=== PATIENT | female | born 1930 | race Caucasian/White ===

== ENCOUNTER 2017-03-30 13:33 | Inpatient (IN) | payer OTHER, MEDICARE ==
[~2017-03-30] VITALS: Ht 152.4 cm; Wt 68.5 kg
[2017-03-30] VITALS (10 sets, daily range): BP systolic 87–108; BP diastolic 45–71
--- NOTE | 2017-03-30 13:40 | NUR ---
RECEIVED PT FROM TRANSPORT TEAM VENTILATED VIA AMBU BAG WITH RANDELL #6 PLACED PT ON VVENT WITH SETTINGS CHARTED SXN PT FOR C&S WITH MIN AMT WHITE SECS BREATH SOUNDS PRESENT BILAT PT QUIET NO RESP DISTRESS NOTED AT THIS TIME PT RESTING COMFORTABLY VENT PLUGGED INTO RED OUTLET AMBU BAG AT BEDSIDE
--- NOTE | 2017-03-30 14:05 | NUR ---
LAB AT BEDSIDE.
--- NOTE | 2017-03-30 14:06 | NUR ---
86F BIBA FROM [facility] C/O ABNORMAL LABS X TODAY WITH ELEVATED WBC, ELEVATED HR AND HGB 7. PT AWAKE, ON VENT UPON ARRIVAL. HX: CHRONIC RESPIRATORY FAILURE, TRACH/VENT, CVA, HTN, DM, HYPOTHYROID, CHRONIC COLONIC ILEUS, ANEMIA, CHRONIC RESPIRATORY FAILURE, EPILEPSY, ENCEPHALOPATHY, HYPERLIPIDEMIA, NONTRAUMATIC INTRACRANIAL HEMORRHAGE, HYPOKALEMIA. PT ON TRACH WITH MACHANICAL VENTILATOR ; O2 35, ASSIST CONTROL 12, TIDAL VOLUME 500. , NEUROLOGICAL BASE LINE. G TUBE TO ABDOMEN. LUNGS CLEAR BL;PATIENT STATES PAIN OF 0/10 AT THIS TIME; PATIENT POSITIONED FOR COMFORT; HOB ELEVATED; BEDRAILS UP X2; BED DOWN. ER MD MADE AWARE OF PT STATUS.
[2017-03-30 14:26] LABS: BASOPHILS # (AUTO) 0.1 K/uL (0.00-0.22); BASOPHILS % (AUTO) 0.5 % (0.0-2.0); EOSINOPHILS # (AUTO) 0.3 K/uL (0-0.4); EOSINOPHILS % (AUTO) 2.1 % (0.0-4.0); HEMATOCRIT 27.3 % (36-48); HEMOGLOBIN 8.7 g/dL (12.0-16.0); LYMPHOCYTES # (AUTO) 1.3 K/uL (2.5-16.5); LYMPHOCYTES % (AUTO) 8.3 % (20.5-51.1); MEAN CORPUSCULAR HEMOGLOBIN 26 pg (27-31); MEAN CORPUSCULAR HGB CONC 32 g/dL (33-37); MEAN CORPUSCULAR VOLUME 82 fL (80-94); MONOCYTES # (AUTO) 0.7 K/uL (0.8-1.0); MONOCYTES % (AUTO) 4.8 % (1.7-9.3); NEUTROPHILS % (AUTO) 84.3 % (42.2-75.2); PLATELET COUNT (AUTO) 405 K/uL (140-450); RED BLOOD CELL COUNT(AUTO) 3.32 MIL/uL (4.20-5.40); RED CELL DISTRIBUTION WIDTH 16.3 % (11.6-13.7); WHITE BLOOD COUNT (AUTO) 15.4 K/uL (4.8-10.8)
--- NOTE | 2017-03-30 14:40 | NUR ---
# 16 FR Colón catheter with 10 ml utilizing sterile technique. Immediate return of 500 ml CLOUDY urine noted. Bedside drainage bag placed below level of bladder. Urine sample collected and sent to lab. Pt tolerated procedure WELL.
[2017-03-30] MEDS ORDERED: MIRABULK GT (14:44)
[2017-03-30] MEDS ORDERED: SIME80CT70 GT (14:44)
[2017-03-30] MEDS ORDERED: SYN.075 GT (14:44)
[2017-03-30] MEDS ORDERED: LANO1OIN26 OP (14:44)
[2017-03-30] MEDS ORDERED: DOCU-299 GT (14:44)
[2017-03-30] MEDS ORDERED: CAPT25TA10 GT (14:44)
[2017-03-30] MEDS ORDERED: VITD1000 GT (14:44)
[2017-03-30] MEDS ORDERED: LACT1CAP72 GT (14:44)
[2017-03-30] MEDS ORDERED: BISA-213 RC (14:44)
[2017-03-30] MEDS ORDERED: PROSTAT SUGAR FREE GT ×2 (14:44→14:50)
[2017-03-30] MEDS ORDERED: KEP500L GT (14:44)
[2017-03-30] MEDS ORDERED: POTA10TE30 GT (14:44)
[2017-03-30] MEDS ORDERED: CRAN450T4 GT (14:44)
[2017-03-30 14:49] LABS: ALBUMIN 2.5 g/dL (3.4-5.0); ANION GAP 9.9 (8-16); ASPARTATE AMINOTRANSFERASE 16 U/L (15-37); CARBON DIOXIDE 29.5 mmol/L (21-32); CHLORIDE 103 mmol/L (98-107); CREATININE 1.1 mg/dL (0.6-1.3); GLUCOSE 165 mg/dL (74-106); POTASSIUM 4.4 mmol/L (3.5-5.1); SODIUM SERUM 138 mmol/L (136-145); TOTAL BILIRUBIN 0.3 mg/dL (0.0-1.0); UREA NITROGEN, BLOOD 54 mg/dL (7-18)
[2017-03-30 14:50] LABS: PROTHROMBIN TIME 10.3 secs (10.8-13.4)
[2017-03-30] MEDS ORDERED: GLIP5TAB4 GT (14:50)
[2017-03-30] MEDS ORDERED: MULT-1328 GT (14:50)
[2017-03-30] MEDS ORDERED: ACETAMINOPHEN 650 MG SUPP RC ONE (15:05)
--- NOTE | 2017-03-30 15:23 | NUR ---
RT SUCTION TRACH.
[2017-03-30 15:29] LABS: APPEARANCE,URINE CLOUDY (CLEAR); COLOR,URINE YELLOW (YELLOW)
[2017-03-30 15:30] LABS: BILIRUBIN,URINE NEGATIVE (NEGATIVE); BLOOD, URINE 2+ (NEGATIVE); LEUKOCYTE ESTERASE ,URINE 3+ (NEGATIVE); NITRITE, URINE NEGATIVE (NEGATIVE); UGLUCOSE NEGATIVE (NEGATIVE)
[2017-03-30 15:32] LABS: RBC,URINE 11-20 (MOD) /HPF (0-5); WBC,URINE TOO MANY TO COUNT /HPF (0-5)
--- NOTE | 2017-03-30 15:43 | NUR ---
T100.9,P101, BP 94.45. NOTIFIED DR DIAL. Patient appears to be resting comfortably in bed. NEUROLOGICAL ACT BASE LINE.
[2017-03-30] MEDS ORDERED: NACL 0.9% 1,000 ML IV ONE ×2 (15:45→16:15)
--- NOTE | 2017-03-30 16:04 | NUR ---
Patient being reevaluated by Dr Rain at bedside. Addendum: 03/30/17 at 1609 by [facility] family at bedside.
[2017-03-30] MEDS ORDERED: PIPERACILLIN/TAZOBACTAM 4.5 GM in DEXTROSE 5% 100 ML IV ONE (16:10)
[2017-03-30] MEDS ORDERED: PIPERACILLIN/TAZOBACTAM 2.25 GM VIAL IV ONE (16:20)
--- NOTE | 2017-03-30 16:25 | NUR ---
x ray at bedside.
[2017-03-30] MEDS ORDERED: LORazepam 2 MG/ML VIAL IVP PRN (16:45)
[2017-03-30] MEDS ORDERED: POTASSIUM CHLORIDE 10 MEQ TABER PO PRN (16:45)
[2017-03-30] MEDS ORDERED: SODIUM PHOSPHATE 118 ML ENEM RC PRN (16:45)
[2017-03-30] MEDS ORDERED: ACETAMINOPHEN 650 MG SUPP RC PRN (16:45)
[2017-03-30] MEDS ORDERED: DEXTROSE 50% 50 ML SYR IVP PRN (16:45)
[2017-03-30] MEDS ORDERED: MORPHINE SULFATE 2 MG/ML SYR IVP PRN (16:45)
[2017-03-30] MEDS ORDERED: diphenhydrAMINE 50 MG/ML VIAL IVP PRN (16:45)
[2017-03-30] MEDS ORDERED: guaiFENesin DM 200/20 MG-10 ML 10 ML UDC GT PRN (16:45)
[2017-03-30] MEDS ORDERED: ONDANSETRON 4 MG/2 ML VIAL IVP PRN (16:45)
[2017-03-30] MEDS ORDERED: IPRATROPIUM 0.02% 0.5 MG/2.5 ML NEBU INH PRN (16:45)
[2017-03-30] MEDS ORDERED: ALUMINUM HYD/MAG/SIMETHICONE 30 ML UDC PO PRN (16:45)
[2017-03-30] MEDS ORDERED: cloNIDine 0.1 MG TAB PO PRN (16:45)
[2017-03-30] MEDS ORDERED: ALBUTEROL 0.083% 2.5 MG/3 ML NEBU INH PRN (16:45)
[2017-03-30] MEDS ORDERED: MAGNESIUM OXIDE 400 MG TAB PO PRN (16:45)
[2017-03-30] MEDS ORDERED: HYDROcodone/APAP 5/325 MG 1 TAB TAB GT PRN ×2 (16:45)
[2017-03-30] MEDS ORDERED: BISACODYL 10 MG SUPP RC PRN (16:45)
[2017-03-30] MEDS ORDERED: MAG SULF 2000 MG/WATER PREMIX 50 ML IV PRN (16:45)
[2017-03-30] MEDS ORDERED: POTASSIUM CHLORIDE 40 MEQ, LIDOCAINE 1% 25 MG in NACL 0.9% 250 ML IV PRN (16:45)
[2017-03-30] MEDS ORDERED: DOCUSATE 100 MG/10 ML UDC PO PRN (16:45)
[2017-03-30] MEDS ORDERED: ACETAMINOPHEN 325 MG TAB PO PRN (16:45)
[2017-03-30] MEDS ORDERED: PROSTAT SUGAR FREE GT SCH (17:00)
--- NOTE | 2017-03-30 17:00 | NUR ---
Patient will be admitted to care of DR HDZ . Admited to ICU. Will go to room7. Belongings list completed. Report to CHARGE LOZOYA.
[2017-03-30] MEDS ORDERED: NACL 0.9% 500 ML IV ONE (17:15)
--- NOTE | 2017-03-30 17:15 | NUR ---
TRANSPORTED PT FROM ER TO ICU 7 VIA AMBU BAG WHEN IN ICU7 PT PLACED ON VENT WITH SETTINGS CHARTED BREATH SOUNDS PRESENT TRACH IN PLACE SXN PT WITH MIN AMT THICK YELLOW SECS VENT PLUGGED INTO RED OUTLET AMBU BAG AT BEDSIDE WILL CONTINUE PT ON VENT
[2017-03-30] MEDS ORDERED: VANCOMYCIN PER PHARMACY MC PRN (17:25)
--- NOTE | 2017-03-30 17:40 | NUR ---
RECEIVE PT FROM ER IN [facility] [place]. PT SKIN DRY WARM TO TOUCH , TRACH TO VENT AC 12 35% FIO2VT 500 PPEP 5 O2 SAT 96% GT TUBE CLAMP. THE SITE IS CLEAR FROM REDNESS.ABDOMEN ROUND AND FIRM BOWEL SOUND HYPO ACTIVE. IV FLUID SITE HAS #20 ON RT FOREARM , INFUSING NS 0.9% AT 100 ML/HR. HILTON CATH TO GRAVITY DRAINAGE LIGHT HERNÁN URINE. SKIN INTACT.
[2017-03-30] MEDS: VANCOMYCIN 500 MG in DEXTROSE 5% 100 ML IV SCH (17:59)
[2017-03-30] MEDS: NACL 0.9% 1,000 ML IV SCH (18:00)
--- NOTE | 2017-03-30 19:25 | NUR ---
PT IS COFORTABLE AT THIS TIME, REPORT GIVE TO LENNOX CAGE.
--- NOTE | 2017-03-30 19:38 | NUR ---
RECEIVED REPORT FROM HEATHER CAGE. PATIENT IS NONVERBAL, DOES NOT TRACK EYES, OR FOLLOW SIMPLE COMMANDS. PATIENT IS ON ETT TO VENT WITH SETTINGS OF TV 500, AC 12, FIO2 35% AND PEEP 5. BREATH SOUNDS ARE COARSE AND DIMINISHED. THERE IS A G-TUBE IN PLACE CLAMPED. BOWEL SOUNDS ARE HYPOACTIVE. HILTON CATHETER IN PLACE DRAINING TO GRAVITY WITH MODERATE AMOUNT OF YELLOW URINE WITH CLOUDY SEDIMENT. #20 IN THE RFA RECEIVING NS AT 100 ML/HR. HOB AT 30 DEGREES WITH BED IN LOW POSITION. CONTINUE TO MONITOR PATIENT. Addendum: 03/31/17 at 0017 by Fab Singh RN TRACH TO VENT, NOT ETT
--- NOTE | 2017-03-30 19:50 | NUR ---
PATIENT'S SON AND DAUGHTER VISITING AT BEDSIDE. NO SIGNS OF RESPIRATORY DISTRESS NOTED. HOB AT 30 DEGREES WITH BED IN LOW POSITION. CONTINUE TO MONITOR PATIENT.
[2017-03-30] MEDS ORDERED: PIPERACILLIN/TAZOBACTAM 3.375 GM in DEXTROSE 5% 50 ML IV SCH (21:00)
[2017-03-30] MEDS: levETIRAcetam 100 MG/ML ORASYR GT SCH (21:00)
--- NOTE | 2017-03-30 21:15 | NUR ---
BLOOD SUGAR IS 164. ADMINISTERED HUMALOG 2 UNITS SUB Q IN LEFT DELTOID. NO ADR NOTED. PATIENT REPOSITIONED FOR COMFORT. HOB AT 30 DEGREES WITH BED IN LOW POSITION. WILL CONTINUE TO MONITOR PATIENT.
[2017-03-30] MEDS: BLOOD GLUCOSE MONITORING 1 DEV DEV FS SCH (21:17)
[2017-03-30] MEDS: INSULIN LISPRO SLIDING SCALE 100 UNITS/ML VIAL SUBQ PRN (21:19)
--- NOTE | 2017-03-30 21:38 | NUR ---
RECEIVED ON A [employer]APE R860 VENTILATOR PLUGGED INTO RED OUTLET TOLERATING WELL WITHOUT ADVERSE REACTIONS NOTED TO A RANDELL DCT #6 AIRWAY SECURED WITH A ERIKA TRACH TIE CUFF PRESSURE CHECKED WITH A ANNIE CUFFLATOR AMBU U BAG NOTED AT HOB LOC QUIET WITH OCCASIONAL IRRITATION/MOVEMENT BREATH SOUNDS CLEAR BILATERAL WITH GOOD AERATION AND CHEST RISE AIRWAY PATENT
[2017-03-30] MEDS ORDERED: levETIRAcetam 100 MG/ML ORASYR ONE (21:55)
[2017-03-30] MEDS: PIPER/TAZO 3.375GM/D5W PREMIX 50 ML IV SCH (23:35)
--- NOTE | 2017-03-30 23:40 | NUR ---
RESTING COMFORTABLY NO EVIDENCE OF PULMONARY DISTRESS NOTED BREATH SOUNDS DIFFUSED RHONCHI BILATERAL WITH GOOD CHEST RISE DEEP TRACHEAL SUCTION FOR SMALL THIN PALE YELLOW SECRETIONS AIRWAY PATENT
[2017-03-31] VITALS (24 sets, daily range): BP systolic 84–122; BP diastolic 31–73
--- NOTE | 2017-03-31 01:35 | NUR ---
PATIENT REPOSITIONED FOR COMFORT. VAP ORAL CARE RENDERED. NO SIGNS OF RESPIRATORY DISTRESS NOTED. HOB AT 30 DEGREES WITH BED IN LOW POSITION. CONTINUE TO MONITOR PATIENT.
--- NOTE | 2017-03-31 01:47 | NUR ---
RESTING WELL TOLERATING VENTILATORY SUPPORT WELL WITHOUT INCIDENT GOOD CHEST RISE
[2017-03-31] MEDS: NACL 0.9% 1,000 ML IV SCH ×4 (02:35→22:35)
--- NOTE | 2017-03-31 03:20 | NUR ---
COMPLETE BED BATH GIVEN. CHANGED LINENS AND GOWN. REPOSITIONED PATIENT FOR COMFORT. VAP ORAL CARE RENDERED. NO SIGNS OF RESPIRATORY DISTRESS NOTED. HOB AT 30 DEGREES WITH BED IN LOW POSITION. WILL CONTINUE TO MONITOR PATIENT.
--- NOTE | 2017-03-31 03:55 | NUR ---
RESTING COMFORTABLY NO EVIDENCE OF RESPIRATORY DISTRESS NOTED GOOD CHEST RISE
[2017-03-31 04:49] LABS: BASOPHILS # (AUTO) 0.1 K/uL (0.00-0.22); BASOPHILS % (AUTO) 0.5 % (0.0-2.0); EOSINOPHILS # (AUTO) 0.3 K/uL (0-0.4); EOSINOPHILS % (AUTO) 2.3 % (0.0-4.0); HEMATOCRIT 24.4 % (36-48); HEMOGLOBIN 7.5 g/dL (12.0-16.0); LYMPHOCYTES # (AUTO) 1.3 K/uL (2.5-16.5); LYMPHOCYTES % (AUTO) 8.6 % (20.5-51.1); MEAN CORPUSCULAR HEMOGLOBIN 25 pg (27-31); MEAN CORPUSCULAR HGB CONC 31 g/dL (33-37); MEAN CORPUSCULAR VOLUME 82 fL (80-94); MONOCYTES # (AUTO) 0.7 K/uL (0.8-1.0); MONOCYTES % (AUTO) 4.4 % (1.7-9.3); NEUTROPHILS # (AUTO) 12.5 K/uL (1.8-7.7); PLATELET COUNT (AUTO) 391 K/uL (140-450); RED BLOOD CELL COUNT(AUTO) 2.99 MIL/uL (4.20-5.40); RED CELL DISTRIBUTION WIDTH 15.9 % (11.6-13.7); WHITE BLOOD COUNT (AUTO) 14.9 K/uL (4.8-10.8)
[2017-03-31 04:53] LABS: ANION GAP 12.6 (8-16); CARBON DIOXIDE 23.4 mmol/L (21-32); CHLORIDE 112 mmol/L (98-107); CREATININE 0.9 mg/dL (0.6-1.3); GLUCOSE 174 mg/dL (74-106); SODIUM SERUM 144 mmol/L (136-145); UREA NITROGEN, BLOOD 32 mg/dL (7-18)
--- NOTE | 2017-03-31 05:28 | NUR ---
AWAKE NO SOB NOTED GOOD CHEST RISE AIRWAY PATENT
[2017-03-31 05:51] LABS: NEUTROPHILS % (AUTO) 84.2 % (42.2-75.2)
--- NOTE | 2017-03-31 06:15 | NUR ---
PATIENT RESTING IN BED WITH NO SIGNS OF ACUTE RESPIRATORY DISTRESS NOTED. HOB AT 30 DEGREES WITH BED IN LOW POSITION. CONTINUE TO MONITOR PATIENT.
[2017-03-31] MEDS: BLOOD GLUCOSE MONITORING 1 DEV DEV FS SCH ×4 (06:40→20:56)
[2017-03-31] MEDS: INSULIN LISPRO SLIDING SCALE 100 UNITS/ML VIAL SUBQ PRN (06:41)
--- NOTE | 2017-03-31 06:57 | NUR ---
PATIENT HAS BEEN SCREENED AND CATEGORIZED HIGH NUTRITION RISK. PATIENT WILL BE SEEN WITHIN 1-2 DAYS OF ADMISSION. 03/31/17-04/01/17 MESFIN MILTON MS, RDN
--- NOTE | 2017-03-31 07:22 | NUR ---
PATIENT IN STABLE CONDITION. VSS. ALL PATIENT'S NEEDS ATTENDED TO DURING SHIFT. ENDORSED CONTINUITY OF CARE TO DENISE CAGE.
--- NOTE | 2017-03-31 07:29 | NUR ---
RECEIVED PT ON CARESCAPE ON A/C 12 VT500 PEEP 5 FIO2 35 ALARMS ARE ON AND FUNCTIONAL PTS TRACH SHILEY DCT SIZE 6 IS SECURE CUFF PRESSURE IS 26 CM H20 PT IN HF AWAKE BS CLEAR BMV HOB VENT PLUGGED INTO RED OUTLET NO APPARENT DISTRESS NOTED
--- NOTE | 2017-03-31 08:07 | NUR ---
RECEIVED REPORT FROM FAUZIA LION. NO SIGNS OF ACUTE DISTRESS AT THIS TIME, FLACC 0. PT OPENS EYES BUT DOES NOT FOLLOW COMMANDS. PT IS TRACH TO VENT. FIO2: 35%, AC: 12, TV: 500, PEEP: 5. IV TO RIGHT FOREARM #20, PATENT AND INTACT. SKIN IS INTACT. G TUBE IN PLACE TO TUBE FEEDING. HILTON CATHETER IN PLACE DRAINING TO GRAVITY DRAINAGE BAG. PT IS CURRENTLY SINUS RHYTHM ON THE MONITOR. SAFETY PRECAUTIONS IN PLACE WITH BED IN LOWEST POSITION AND SIDE RAILS UP. CALL LIGHT WITHIN REACH. WILL CONTINUE TO MONITOR. Addendum: 03/31/17 at 0809 by Christina Eckert RN CHARTED WRONG TIME. CORRECT TIME: 722
[2017-03-31] MEDS: glipiZIDE 5 MG TAB GT SCH (08:34)
[2017-03-31] MEDS: MULTIVITAMIN/MINERALS 1 TAB GT SCH (08:34)
[2017-03-31] MEDS: LEVOTHYROXINE 0.075 MG TAB GT SCH (08:34)
[2017-03-31] MEDS: LACTOBACILLUS RHAMNOSUS GG 1 EACH CAP GT SCH (08:34)
[2017-03-31] MEDS: PIPER/TAZO 3.375GM/D5W PREMIX 50 ML IV SCH ×3 (08:36→23:57)
[2017-03-31] MEDS: levETIRAcetam 100 MG/ML ORASYR GT SCH ×2 (08:47→21:32)
[2017-03-31] MEDS ORDERED: LACTOBACILLUS ACIDOPHILUS GT SCH (09:00)
[2017-03-31] MEDS ORDERED: NON-FORMULARY ITEM (Multivitamin with Minerals (Multivitamins with Minerals) 1 TAB) GT SCH (09:00)
--- NOTE | 2017-03-31 09:00 | NUR ---
VENT CHECK BS RHONCI I\L LAVAGE AND SX MOD YELLOW SECRETIONS
--- NOTE | 2017-03-31 09:01 | NUR ---
CHECKED TUBE FEEDING RESIDUAL: NONE NOTED. ADMINISTERED MEDICATION ORDERED. PT TOLERATED WELL.
--- NOTE | 2017-03-31 09:21 | NUR ---
DR. HDZ IN TO SEE PT. WILL FOLLOW UP ON ORDERS.
--- NOTE | 2017-03-31 10:20 | NUR ---
DR. NEUMANN IN TO SEE PT. WILL FOLLOW UP ON ORDERS.
--- NOTE | 2017-03-31 10:27 | NUR ---
PER DR. NEUMANN, PT OK TO BE TRANSFERRED TO TELEMETRY. NOTIFIED DR. ROSA HDZ. PER DR. HDZ, PT CAN BE TRANSFERRED IF SBP ABOVE 80.
[2017-03-31] MEDS ORDERED: NACL 0.9% 500 ML IV SCH (10:30)
--- NOTE | 2017-03-31 11:16 | NUR ---
VENT CHECK BS CLEAR AIRWAY IS PATENT
--- NOTE | 2017-03-31 13:00 | NUR ---
G TUBE FOUND PULLED OUT WITH BALLOON INTACT, NO BLEEDING NOTED. TUBE FEEDING STOPPED AT THIS TIME. PAGED DR. HDZ, AWAITING CALLBACK.
--- NOTE | 2017-03-31 13:05 | NUR ---
VENT CHECK BS RHONCI I\L LAVAGE AND SX LG WHITE
--- NOTE | 2017-03-31 13:07 | NUR ---
RECEIVED CALLBACK FROM DR. HDZ, NEW ORDERS RECEIVED. PER DR. HDZ, HOLD TRANSFER TO TELEMETRY AT THIS TIME.
--- NOTE | 2017-03-31 13:15 | NUR ---
SPOKE WITH DR. SINGH REGARDING G TUBE. PER DR. SINGH, KEEP G TUBE OUT AND HOLD TUBE FEEDING AT THIS TIME.
--- NOTE | 2017-03-31 13:16 | NUR ---
PT'S DAUGHTER PRESENT AT BEDSIDE.
--- NOTE | 2017-03-31 15:00 | NUR ---
VENT CHECK, SXN PT SMALL AMT OF CLEAR SECRETIONS B\S ARE RHONCHI. TRACH CARE DONE: CHANGED TRACH TIE AND GAUZE. PT IS RESTING WITH NO SIGNS OF DISTRESS NOTED AT THIS TIME
--- NOTE | 2017-03-31 15:12 | NUR ---
CHECKED ON PT. NO SIGNS OF ACUTE DISTRESS AT THIS TIME. FLACC 0. WILL CONTINUE TO MONITOR.
--- NOTE | 2017-03-31 16:41 | NUR ---
VENT CHECK BS CLEAR AIRWAY IS PATENT
--- NOTE | 2017-03-31 16:53 | NUR ---
VENT CHECK, NO SXN REQUIRED AT THIS TIME, B\S ARE RHONCHI AND AIRWAY IS PATENT FAUZIA Poe AT BEDSIDE
[2017-03-31] MEDS: VANCOMYCIN 500 MG in DEXTROSE 5% 100 ML IV SCH (17:01)
--- NOTE | 2017-03-31 17:01 | NUR ---
PT TOLERATED MEDS WELL.
--- NOTE | 2017-03-31 17:27 | NUR ---
PT'S GRANDDAUGHTER AT BEDSIDE.
--- NOTE | 2017-03-31 18:08 | NUR ---
CHECKED ON PT. NO SIGNS OF ACUTE DISTRESS AT THIS TIME, FLACC 0. CALL LIGHT WITHIN REACH. WILL CONTINUE TO MONITOR.
--- NOTE | 2017-03-31 18:51 | NUR ---
DR. SINGH IN TO SEE PT. WILL FOLLOW UP ON ORDERS.
[2017-03-31] MEDS ORDERED: MAGNESIUM CITRATE 300 ML BTL PO SCH (19:00)
--- NOTE | 2017-03-31 19:04 | NUR ---
RCV'D PT ON MECHANICAL VENTILATION TRACHED WITH SHILEY DCT SIZE 6. VENT SETTINGS ARE AC 12,500,35%,+5. VENT IS CONNECTED TO RED OUTLET. ALARMS ARE AUDIBLE. TRACH IS IN PLACE AND SECURE. STOMA IS DRAINING. SXN'D SML AMT OF CLEAR THIN SECRETIONS. AMBU BAG AT BEDSIDE. NO SOB OR DISTRESS NOTED. PT IS AWAKE AND QUITE. WILL CONTINUE TO MONITOR.
--- NOTE | 2017-03-31 19:13 | NUR ---
ENDORSED CARE TO FAUZIA SALEH. PT IN STABLE CONDITION.
--- NOTE | 2017-03-31 19:30 | NUR ---
RECEIVED PT FROM AM SHIFT. PT AWAKE NON VERBAL. UNABLE TO FOLLOW COMMANDS. PT ON TRACH TO VENT WITH VENT SETTING AC 12 FIO2 35,TV 500 PEEP 5 TOLERATED WELL,NO S/S OF RESP DISTRESS,NO SOB. HOB UP 30-45 DEGREE ALL THE TIMES. RHONCHI TO BILATERAL LUNGS. SR ON MONITOR. IV TO RIGHT FOREARM NO 20 GAUGE INTACT WELL, NO S/S INFILTRATION NOTED. CONT ON IV NS AT 100 CC/HR RUNNING ORDERED. GT IS OUT FROM AM SHIFT. POST GT STOMA COVERED WITH DRESSING WITH SMALL YELLOW TO WHITISH COLOR OF DRAINAGE.KEPT AREA CLEAN AND DRY.GT FEEDING STILL ON HOLD.DR SINGH COME TO SEE PT WAITING FOR THE NEW ORDER. ABD SOFT NON DISTENDED.POSITIVE BOWEL SOUND TO ALL QUADRANTS. F/C IN PLACE WITH YELLOW CLEAR URINE.
--- NOTE | 2017-03-31 19:40 | NUR ---
ORDERED CITROMA ,ENEMA, CHEST X-RAY, ABD ULTRA SOUNDS AND NGT TO INSERTED. Addendum: 03/31/17 at 2305 by Soheila Manriquez RN CLARIFIED THE X-RAY IS FOR ABD
--- NOTE | 2017-03-31 20:15 | NUR ---
X-RAY OF ABD AND ABD ULTRASOUND DONE. RESULT STILL PENDING.
--- NOTE | 2017-03-31 20:40 | NUR ---
NGT INSERTED,PLACEMENT CONFIRM BY 2 NURSE BY AUSCULTATION AND 2 CC RESIDUAL NOTED.
[2017-03-31] MEDS ORDERED: MAGNESIUM CITRATE 300 ML BTL ONE (21:05)
--- NOTE | 2017-03-31 21:22 | NUR ---
PAGED DR. Kirill SINGH TO RELAY THE CRITICAL KUB RESULT.
--- NOTE | 2017-03-31 21:45 | NUR ---
MEDICATION WAS GIVEN ORDERED TOLERATED WELL.
--- NOTE | 2017-03-31 22:01 | NUR ---
NO RETURNED CALL FROM DR. Arnaldo SINGH SO I CALLED HIM AGAIN; ANSWERED BACK IMMEDIATELY AND REPORTED TO HIM THE CRITICAL KUB RESULT; ORDERED TO CONTINUE GIVING THE ENEMA AND THE MAGNESIUM CITRATE THRU NGT; CARRIED OUT.
--- NOTE | 2017-03-31 22:40 | NUR ---
IV NS AT 100 CC/HR STILL RUNNING ORDER ABOUT 600 CC ON THE BAG.
[2017-04-01] VITALS (24 sets, daily range): BP systolic 84–138; BP diastolic 42–83
--- NOTE | 2017-04-01 00:30 | NUR ---
IV ABT GIVEN ORDER. PT IS SLEEPING. BM X1 MEDIUM LOOSE STOOL POST ENEMA.
[2017-04-01] MEDS: NACL 0.9% 1,000 ML IV SCH (04:18)
[2017-04-01 05:23] LABS: BASOPHILS # (AUTO) 0.1 K/uL (0.00-0.22); BASOPHILS % (AUTO) 0.7 % (0.0-2.0); EOSINOPHILS # (AUTO) 0.4 K/uL (0-0.4); EOSINOPHILS % (AUTO) 3.7 % (0.0-4.0); LYMPHOCYTES # (AUTO) 1.5 K/uL (2.5-16.5); LYMPHOCYTES % (AUTO) 14.3 % (20.5-51.1); MEAN CORPUSCULAR HEMOGLOBIN 26 pg (27-31); MEAN CORPUSCULAR HGB CONC 32 g/dL (33-37); MEAN CORPUSCULAR VOLUME 81 fL (80-94); MONOCYTES # (AUTO) 0.5 K/uL (0.8-1.0); MONOCYTES % (AUTO) 4.9 % (1.7-9.3); NEUTROPHILS # (AUTO) 8.3 K/uL (1.8-7.7); NEUTROPHILS % (AUTO) 76.4 % (42.2-75.2); PLATELET COUNT (AUTO) 393 K/uL (140-450); RED BLOOD CELL COUNT(AUTO) 2.71 MIL/uL (4.20-5.40); RED CELL DISTRIBUTION WIDTH 16.1 % (11.6-13.7); WHITE BLOOD COUNT (AUTO) 10.8 K/uL (4.8-10.8)
[2017-04-01 05:41] LABS: ALBUMIN 1.9 g/dL (3.4-5.0); ANION GAP 12.8 (8-16); ASPARTATE AMINOTRANSFERASE 18 U/L (15-37); CARBON DIOXIDE 24.5 mmol/L (21-32); CHLORIDE 118 mmol/L (98-107); CREATININE 0.8 mg/dL (0.6-1.3); GLUCOSE 177 mg/dL (74-106); POTASSIUM 3.3 mmol/L (3.5-5.1); SODIUM SERUM 152 mmol/L (136-145); TOTAL BILIRUBIN 0.2 mg/dL (0.0-1.0); UREA NITROGEN, BLOOD 17 mg/dL (7-18)
--- NOTE | 2017-04-01 06:33 | NUR ---
RECEIVED PT ON A/C 12 VT 500 PEEP5 FIO2 35 ALARMS ARE ON AND FUNCTIONAL BMV HOB PTS TRACH SHILEY DCT SIZE 6 IS SECURE BS RHONCI I\L LAVAGE AND SX LG CLEAR SECRETIONS PT IN HF ASLEEP CUFF PRESSURE IS 29 CM H20 NO APPARENT DISTRESS NOTED VENT PLUGGED INTO RED OUTLET
[2017-04-01] MEDS: BLOOD GLUCOSE MONITORING 1 DEV DEV FS SCH ×4 (06:45→20:08)
[2017-04-01] MEDS: INSULIN LISPRO SLIDING SCALE 100 UNITS/ML VIAL SUBQ PRN ×3 (06:48→20:10)
--- NOTE | 2017-04-01 07:28 | NUR ---
REPORT GIVEN TO AM SHIFT,AM SHIFT MADE AWARE NEW ORDER FROM FOR BLOOD TRANSFUSION 2 BAG RED PACK. NO RESP DISTRESS NOTED.
--- NOTE | 2017-04-01 07:30 | NUR ---
RECEIVED REPORT FROM FAUZIA SALEH. GCS 9 (4,1,4). BILATERAL PERRLA OBSERVED. FLACC 0. PT TRACH TO VENT, TOLERATING WELL. SR ON MONITOR. SKIN NONINTACT, WARM , DRY. POST GT STOMA OBSERVED, COVERED WITH DRAINAGE BAG. SCANT YELLOW, WHITE DRAINAGE OBSERVED. IV TO RIGHT FOREARM 20 GAUGE OBSERVED. INTACT AND PATENT. IV TO LEFT HAND [address] INTACT AND PATENT. ABD SOFT, NONTENDER, NON DISTENDED. POSITIVE BOWEL SOUND TO ALL QUADRANTS. F/C IN PLACE WITH YELLOW CLEAR URINE DRAINING BY GRAVITY. NO S/SX OF ACUTE DISTRESS NOTED. BED AT LOWEST SETTING. CALL LIGHT WITHIN REACH. WILL CONTINUE TO MONITOR FOR CHANGES.
--- NOTE | 2017-04-01 07:56 | NUR ---
TELEPHONE CONSENT OBTAINED FROM SIMCHANEY AND WITNESSED BY MYSELF AND FAUZIA ROMERO
[2017-04-01] MEDS: PIPER/TAZO 3.375GM/D5W PREMIX 50 ML IV SCH ×3 (08:13→23:29)
[2017-04-01] MEDS: LACTOBACILLUS RHAMNOSUS GG 1 EACH CAP GT SCH (08:14)
[2017-04-01] MEDS: glipiZIDE 5 MG TAB GT SCH (08:14)
[2017-04-01] MEDS: LEVOTHYROXINE 0.075 MG TAB GT SCH (08:14)
[2017-04-01] MEDS: MULTIVITAMIN/MINERALS 1 TAB GT SCH (08:14)
[2017-04-01] MEDS: levETIRAcetam 100 MG/ML ORASYR GT SCH ×2 (08:15→20:08)
--- NOTE | 2017-04-01 08:20 | NUR ---
O RESIDUAL FROM NG TUBE. MEDICATION GIVEN ORDERED. TOLERATED WELL.
--- NOTE | 2017-04-01 08:29 | NUR ---
WOUND CULTURE COLLECTED FROM G TUBE STOMA.
--- NOTE | 2017-04-01 09:09 | NUR ---
VENT CHECK BS RHONCI I\L LAVAGE AND SX LG CLEAR SECRETIONS
--- NOTE | 2017-04-01 09:27 | NUR ---
0914: BLOOD VERIFIED WITH LAB. CONSENT PROVIDED TO LAB. 0927: FIRST UNIT OF BLOOD TRANSFUSION STARTED. IV INTACT AND PATENT. FLACC 0. NO S/SX OF ACUTE DISTRESS OBSERVED.
--- NOTE | 2017-04-01 09:30 | NUR ---
DR. HDZ AT BEDSIDE TO SEE PT. WILL F/U WITH NEW ORDERS.
[2017-04-01] MEDS ORDERED: POTASSIUM CHLORIDE 20% 40 MEQ/15 ML UDC NG SCH (09:55)
--- NOTE | 2017-04-01 09:59 | NUR ---
PT HAD ONE EPISODE OF MODERATE LOOSE GREEN STOOL. STOOL SAMPLE COLLECTED. RACHAEL CARE GIVEN.
[2017-04-01] MEDS: POTASSIUM CHL 20 MEQ/D5-1/2NS 1,000 ML IV SCH ×2 (10:05→20:52)
--- NOTE | 2017-04-01 10:10 | NUR ---
0 RESIDUAL IN NG TUBE. MEDICATION GIVEN ORDERED. TOLERATED WELL. WILL CONTINUE TO MONITOR FOR CHANGES.
--- NOTE | 2017-04-01 10:29 | NUR ---
VENT CHECK BS RHONCI I\L LAVAGE AND SX MOD CLEAR SECRETIONS
--- NOTE | 2017-04-01 10:32 | NUR ---
DR HDZ PAGED REGARDING CRITICAL LAB RESULT. AWAITING CALL BACK.
[2017-04-01] MEDS ORDERED: CHLORHEXADINE GLUC 2% CLOTH TP SCH ×2 (10:35→11:11)
[2017-04-01] MEDS ORDERED: MUPIROCIN 2% OINT 22 GM TUBE TP SCH (11:12)
--- NOTE | 2017-04-01 11:29 | NUR ---
DR. NEUMANN AT BEDSIDE TO SEE PT. WILL F/U WITH NEW ORDERS.
--- NOTE | 2017-04-01 11:30 | NUR ---
CHLOROHEXIDINE BATH GIVEN. PT TOLERATED WELL.
--- NOTE | 2017-04-01 11:40 | NUR ---
AROUND 50 CC OUTPUT NOTED IN DRAINAGE BAG AROUND GT STOMA. APPEARS LIKE TUBE FEEDING IN APPEARANCE. PER COMPUTER NETWORK SPECIALIST CAN CONSIDER KEEPING RATE AT 40 ML/HR AND OBSERVE FOR MORE DRAINAGE. WILL CONTINUE TO MONITOR AND UPDATE MD FOR INCREASE IN DRAINAGE.
--- NOTE | 2017-04-01 12:30 | NUR ---
FIRST UNIT OF BLOOD COMPLETED. PT TOLERATED WELL. IV INTACT AND PATENT. VITALS SIGN WNL. NO S/SX OF ADVERSE S/E OBSERVED.
--- NOTE | 2017-04-01 12:48 | NUR ---
04/01/17 RD INITIAL ASSESSMENT COMPLETED PLEASE REFER TO NUTRITION ASSESSMENT UNDER CARE ACTIVITY FOR ESTIMATED NUTRITIONAL NEEDS. RD RECOMMENDATIONS: 1. CONTINUE DIABETISOURCE AT 40 ML/HR VIA NG TUBE WITH FREE WATER FLUSH AT 100 ML Q8H MEDICALLY APPROPRIATE AND TOLERATED. DECREASE/INCREASE TUBE FEEDING RATE TO GOAL RATE TOLERATED OR PER MD DISCRETION. -CURRENT RATE OF TUBE FEEDING IS MEETING ~57% OF ESTIMATED KCAL NEEDS AND ~58% OF ESTIMATED PROTEIN NEEDS (INADEQUATE). 2. CONSIDER INCREASING DIABETISOURCE AC TO GOAL RATE OF 65 ML/HR WITH 200 ML FREE WATER FLUSH Q8H TOLERATED. -TUBE FEEDING AT GOAL RATE OF 65 ML/HR PROVIDES 1560 ML TOTAL VOLUME, 1872 KCAL, 94 GM OF PROTEIN, AND 1876 ML OF FREE WATER (ADEQUATE TO MEET ~93% OF ESTIMATED KCAL NEEDS AND ~94% OF ESTIMATED PROTEIN NEEDS). 3. RD WILL F/U 2-3 DAYS; HIGH RISK. GREGORY LINARES RD
--- NOTE | 2017-04-01 13:16 | NUR ---
VENT CHECK BS RHONCI I\L LAVAGE AND SX MOD CLEAR SECRETIONS
--- NOTE | 2017-04-01 13:43 | NUR ---
1328: BLOOD VERIFIED WITH LAB. CONSENT PROVIDED TO LAB. 1343: SECOND UNIT OF BLOOD TRANSFUSION STARTED. IV INTACT AND PATENT. FLACC 0. NO S/SX OF ACUTE DISTRESS OBSERVED.
--- NOTE | 2017-04-01 14:26 | NUR ---
PT HAD ONE EPISODE OF MODERATE LOOSE GREEN STOOL. RACHAEL CARE GIVEN. SKIN INTACT, WARM. 50 CC OF YELLOWISH DRAINAGE WITH MUCUS LIKE SUBSTANCE DRAINED FROM DRAINAGE BAG ON GT STOMA. WILL CONTINUE TO MONITOR.
--- NOTE | 2017-04-01 15:14 | NUR ---
VENT CHECK BS CLEAR AIRWAY IS PATENT
--- NOTE | 2017-04-01 16:31 | NUR ---
VENT CHECK BS RHONCI I\L LAVAGE AND SX MOD CLEAR SECRETIONS
--- NOTE | 2017-04-01 16:34 | NUR ---
DR. SINGH NOTIFIED OF DRAINAGE IN COLLECTION BAG OF GT STOMA. PER DR SINGH, HOLD TUBE FEEDING UNTIL FURTHER INSTRUCTION AND CONNECT NG TUBE TO LOW INTERMITTENT SUCTION. ORDER RECEIVED FOR CT ABD/PELVIS TODAY AND GASTROGRAFIN BARIUM ENEMA IN AM.
--- NOTE | 2017-04-01 16:43 | NUR ---
SECOND UNIT OF BLOOD COMPLETED. PT TOLERATED WELL. IV INTACT AND PATENT. VITALS SIGN WNL. NO S/SX OF ADVERSE S/E OBSERVED.
--- NOTE | 2017-04-01 17:09 | NUR ---
PER MINERAL SURVEYING TECHNICIAN, UNABLE TO DO CT OF ABD/PEL BECAUSE PT WAS NOT NPO STATUS. WILL CALL BACK IN 3-4 HOURS. WILL CONTINUE LOW INTERMITTENT SUCTION. PT TOLERATING WELL.
[2017-04-01] MEDS: VANCOMYCIN 500 MG in DEXTROSE 5% 100 ML IV SCH (18:09)
--- NOTE | 2017-04-01 19:20 | NUR ---
REPORT GIVEN TO FAUZIA SALEH. PT IS STABLE.
--- NOTE | 2017-04-01 19:30 | NUR ---
RECEIVED PT FROM AM SHIFT. PT IS AWAKE,OPEN HER EYES, UN ABLE TO FOLLOW COMMANDS. CONT ON TRACH TO VENT. PER RT SETTING CHANGE TO AC 12 TV 500 FIO2 30,PEEP 5 TOLERATED WELL. NO S/S OF RESP DISTRESS,NO SOB. SPO2 97%. LUNGS SOUND CLEAR BILATERALLY. IV LINE TO RIGHT FOREARM NO 20 GAUGE WITH IV D5 1/2 NS WITH 20 MEQ AT 90 CC/HR TOLERATED WELL. IV SITE SALINE FLUSH TO LEFT HAND INTACT WELL WITH GOOD BLOOD RETURN. EDEMA NOTED TO LEFT HAND.POSITIVE 2 NON PITTING. ELEVATED AREA WITH PILLOW. NGT TO LEFT NOSTRIL CONNECT TO INTERMITTENT SUCTIONING WITH SMALL YELLOW SECRETION.FEEDING TUBE ON HOLD UNTIL FURTHER ORDER. POST GT STOMA ON ABD COVERED WITH BAG WITH YELLOWISH SECRETION NOTED ON THE BAG. F/C INPLACE WITH YELLOW CLEAR COLOR.KEPT CLEAN AND DRY. CALL LIGHT IN REACH.
--- NOTE | 2017-04-01 20:25 | NUR ---
NIGHT MED GIVEN TESFAYE WELL, BLOOD SUGAR 172 AND 2 UNITS INSULIN GIVEN ORDERED.
--- NOTE | 2017-04-01 21:21 | NUR ---
IV D5 IN 1/2 NS WITH 20 MEQ KCL STILL RUNNING ORDER. BAG STILL ABOUT 300 CC AT THIS TIME.
--- NOTE | 2017-04-01 22:30 | NUR ---
CT SCAN ABD DONE. RESULT STILL PENDING.
[2017-04-02] VITALS (17 sets, daily range): BP systolic 86–139; BP diastolic 47–78
--- NOTE | 2017-04-02 00:21 | NUR ---
IV ABT GIVEN TOLERATED WELL. VAP ORAL CARE GIVEN. REPOSITON PT FOR COMFORT.
[2017-04-02] MEDS: POTASSIUM CHL 20 MEQ/D5-1/2NS 1,000 ML IV SCH (00:33)
--- NOTE | 2017-04-02 02:35 | NUR ---
SINUS OUMAR ON THE MONITOR HR IS 43-45 X/MINUTES,PT SLEEPING,NO S/S OF RESP DISTRESS,NO SOB.CLOSE MONITORING.
--- NOTE | 2017-04-02 04:30 | NUR ---
AM CARE , F/C CARE AND VAP ORAL CARE GIVEN TOLERATED WELL. URINE 800 CC YELLOW CLEAR COLOR.NO BM AT THIS TIME.
[2017-04-02 04:59] LABS: BASOPHILS # (AUTO) 0.1 K/uL (0.00-0.22); BASOPHILS % (AUTO) 1.2 % (0.0-2.0); EOSINOPHILS # (AUTO) 0.3 K/uL (0-0.4); EOSINOPHILS % (AUTO) 3.5 % (0.0-4.0); HEMATOCRIT 26.6 % (36-48); HEMOGLOBIN 8.6 g/dL (12.0-16.0); LYMPHOCYTES # (AUTO) 2.1 K/uL (2.5-16.5); LYMPHOCYTES % (AUTO) 22.5 % (20.5-51.1); MEAN CORPUSCULAR HEMOGLOBIN 26 pg (27-31); MEAN CORPUSCULAR HGB CONC 32 g/dL (33-37); MEAN CORPUSCULAR VOLUME 82 fL (80-94); MONOCYTES # (AUTO) 0.6 K/uL (0.8-1.0); MONOCYTES % (AUTO) 6.2 % (1.7-9.3); NEUTROPHILS # (AUTO) 6.1 K/uL (1.8-7.7); NEUTROPHILS % (AUTO) 66.6 % (42.2-75.2); PLATELET COUNT (AUTO) 369 K/uL (140-450); RED BLOOD CELL COUNT(AUTO) 3.27 MIL/uL (4.20-5.40); RED CELL DISTRIBUTION WIDTH 17.3 % (11.6-13.7); WHITE BLOOD COUNT (AUTO) 9.2 K/uL (4.8-10.8)
--- NOTE | 2017-04-02 05:45 | NUR ---
PER- RT FI02 CHANGE TO 28,PT TOLERATED WELL. SPO2 99 %.
[2017-04-02 05:58] LABS: ANION GAP 13.4 (8-16); CARBON DIOXIDE 24.3 mmol/L (21-32); CHLORIDE 117 mmol/L (98-107); CREATININE 0.8 mg/dL (0.6-1.3); GLUCOSE 176 mg/dL (74-106); POTASSIUM 3.7 mmol/L (3.5-5.1); SODIUM SERUM 151 mmol/L (136-145); UREA NITROGEN, BLOOD 12 mg/dL (7-18)
--- NOTE | 2017-04-02 06:29 | NUR ---
BLOOD SUGAR CHECK 171 ,2 UNITS INSULIN GIVEN
[2017-04-02] MEDS: BLOOD GLUCOSE MONITORING 1 DEV DEV FS SCH ×4 (06:31→20:30)
[2017-04-02] MEDS: INSULIN LISPRO SLIDING SCALE 100 UNITS/ML VIAL SUBQ PRN (06:33)
--- NOTE | 2017-04-02 06:35 | NUR ---
REC'D PT ON CARESCAPE VENT SETTINGS AC12 VT 500 PEEP 5 FIO2 28% ALARMS ON AND FUNCTIONING PROPERLY, AMBU BAG AT SIDE OF VENT AND VENTILATOR IS PLUGGED INTO RED OUTLET, SXN PT SMALL AMT OF THICK CLEAR SECRETIONS, B\S ARE DIMINISHED BILATERALLY, NO HHN NEEDED AT THIS TIME, PT IS TRACH WITH SHILEY DCT #6 AND SKIN INTEGRITY IS INTACT, CUFF PRESSURE IS 28 CM H20 PT IS RESTING WITH NO SIGNS OF DISTRESS NOTED AT THIS TIME
--- NOTE | 2017-04-02 06:54 | NUR ---
COME TO SEE PT, MADE AWARE THE ABD CT RESULT AND LAB RESULT HGB UP TO 8.6. PER MD TO REPEAT THE LABS TOMORROW AM.
--- NOTE | 2017-04-02 07:26 | NUR ---
REPORT GIVEN TO AM SHIFT,PT IS AWAKE,NO S/S OF RESP.DISTRESS,NO SOB.STABLE AT THIS TIME.
--- NOTE | 2017-04-02 07:27 | NUR ---
RECEIVED REPORT FROM FAUZIA SALEH. NO SIGNS OF ACUTE DISTRESS AT THIS TIME, FLACC 0. PT OPENS EYES BUT DOES NOT FOLLOW COMMANDS. PT IS TRACH TO VENT. FIO2: 28%, TV: 500, AC: 12, PEEP: 5. IV TO RIGHT FOREARM #20 AND LEFT HAND #20 PATENT AND INTACT. PT HAS OPEN WOUND WHERE G TUBE WAS PLACED, SKIN IS OTHERWISE INTACT. NGT TO LEFT NARE IN PLACE. TUBE FEEDING ON HOLD AT THIS TIME PER DR. SINGH. HILTNO CATHETER IN PLACE DRAINING TO GRAVITY DRAINAGE BAG. PT IS CURRENTLY SINUS BRADYCARDIA ON THE MONITOR. SAFETY PRECAUTIONS IN PLACE WITH BED IN LOWEST POSITION AND SIDE RAILS UP. CALL LIGHT WITHIN REACH. WILL CONTINUE TO MONITOR. Addendum: 04/02/17 at 0817 by Christina Eckert RN PT IS ON CONTACT ISOLATION WITH SIGNS POSTED OUTSIDE OF PT'S ROOM.
[2017-04-02] MEDS: glipiZIDE 5 MG TAB GT SCH (08:24)
[2017-04-02] MEDS: MULTIVITAMIN/MINERALS 1 TAB GT SCH (08:24)
[2017-04-02] MEDS: LACTOBACILLUS RHAMNOSUS GG 1 EACH CAP GT SCH (08:24)
[2017-04-02] MEDS: PIPER/TAZO 3.375GM/D5W PREMIX 50 ML IV SCH ×3 (08:24→23:43)
[2017-04-02] MEDS: levETIRAcetam 100 MG/ML ORASYR GT SCH ×2 (08:25→20:26)
[2017-04-02] MEDS: MUPIROCIN 2% OINT 22 GM TUBE TP SCH (08:25)
[2017-04-02] MEDS: LEVOTHYROXINE 0.075 MG TAB GT SCH (08:25)
--- NOTE | 2017-04-02 08:45 | NUR ---
PT TOLERATED MEDS WELL.
--- NOTE | 2017-04-02 09:08 | NUR ---
SPOKE WITH PT'S GRANDDAUGHTER, SHAYNA AND RECEIVED VERBAL CONSENT FOR GASTRO BARIUM ENEMA.
--- NOTE | 2017-04-02 09:16 | NUR ---
VENT CHECK, NO SXN REQUIRED AT THIS TIME AIRWAY IS PATENT AND PT IS RESTING
[2017-04-02] MEDS: CHLORHEXADINE GLUC 2% CLOTH TP SCH (09:42)
--- NOTE | 2017-04-02 10:36 | NUR ---
VENT CHECK, SXN PT SMALL AMT OF THICK CLEAR SECRETIONS, B\S ARE DIMINISHED AND AIRWAY IS PATENT PT IS SLEEPING WITH NO SIGNS OF DISTRESS NOTED
--- NOTE | 2017-04-02 10:46 | NUR ---
ZACH KUO SPOKE WITH [facility] ZACH BAUMANN [phone] AND SHE SAID THAT ALL [facility] DIRECT ER ADMISSIONS SHOULD ALWAYS BE ASSIGNED TO [facility]ITT[facility]/ATTENDING PHYSICIAN. ZACH GAGE. INITIAL REVIEW FAXED TO [facility] [phone] ZACH BAUMANN # [phone]. FAXED MICROBIOLOGY RESULTS TO [facility].
[2017-04-02] MEDS: VANCOMYCIN 1GM/DEXT 5% PREMIX 200 ML IV SCH (11:02)
--- NOTE | 2017-04-02 11:11 | NUR ---
PER RADIOLOGY, GASTRO BARIUM ENEMA CANNOT BE PERFORMED DUE TO PT'S CONDITION. INFORMED PT'S GRANDDAUGHTER, SHAYNA. PT'S DAUGHTER IN TO SEE PT.
--- NOTE | 2017-04-02 11:13 | NUR ---
CALLED DR. ROSA HDZ REGARDING IF PT CAN BE DOWNGRADED TO TELEMETRY, PER DR. HDZ, OK TO DOWNGRADE.
--- NOTE | 2017-04-02 12:33 | NUR ---
DR. SINHG IN TO SEE PT. PER DR. SINGH, CONTINUE TO HOLD TUBE FEEDING. REMOVED DRAINAGE BAG AND PACKED WITH IODOFORM, PLACED DRY GAUZE ON TOP OF G TUBE STOMA SITE PER DR. SINGH. PT TOLERATED WELL. WILL CONTINUE TO MONITOR.
--- NOTE | 2017-04-02 12:43 | NUR ---
DR. NEUMANN IN TO SEE PT. WILL FOLLOW UP ON ORDERS.
[2017-04-02] MEDS ORDERED: FUROSEMIDE 20 MG/2 ML VIAL IVP SCH (12:44)
--- NOTE | 2017-04-02 12:45 | NUR ---
REPORT GIVEN TO FAUZIA PAREKH. PT TO BE TRANSFERRED TO TELEMETRY ROOM 123B.
--- NOTE | 2017-04-02 12:53 | NUR ---
VENT CHECK, SXN PT SMALL AMT OF THICK CLEAR SECRETIONS, B\S ARE DIMINISHED AND AIRWAY IS PATENT PT IS RESTING WITH NO SIGNS OF DISTRESS NOTED AT THIS TIME
--- NOTE | 2017-04-02 13:08 | NUR ---
CHECKED BP: 128/38. ADMINISTERED LASIX ORDERED. PT TOLERATED WELL.
--- NOTE | 2017-04-02 13:30 | NUR ---
RECEIVED PT ON UNIT VIA GURNEY, PT IS AAOX1, NON-VERBAL, BEDBOUND, PT IS ON TRACH TO VENT, PT HAS NG TUBE ON LEFT NARES, PT HAS G-TUBE STOMA COVERED WITH DRESSING, IV IS ON THE RIGHT FOREARM, PATENT, INTACT, FLUSHING WELL, IV ON THE LEFT HAND, PATENT, INTACT, FLUSHING WELL, PT HAS HILTON CATHETER IN PLACE, NO S/S OF RESPIRATORY DISTRESS OR DISCOMFORT NOTED, ORIENTED PT TO ROOM, DISCUSSED PLAN OF CARE WITH PT, PT UNABLE TO VERBALIZE UNDERSTANDING, SAFETY/FALL/ASPIRATION PRECAUTIONS ARE IN PLACE, CALL LIGHT IS WITHIN REACH, WILL CONTINUE TO MONITOR.
--- NOTE | 2017-04-02 13:38 | NUR ---
PT TRANSFERRED TO TELEMETRY ROOM 123B IN STABLE CONDITION.
--- NOTE | 2017-04-02 13:50 | NUR ---
PT TRANSFERRED TO 123 B BAGGED WITH 100% FIO2 THEN PLACED BACK ON VENT WITH SAME SETTINGS
[2017-04-02] MEDS: FERRIC GLUCONATE 125 MG in NACL 0.9% 100 ML IV SCH (14:15)
--- NOTE | 2017-04-02 14:53 | NUR ---
VENT CHECK, SXN PT MODERATE AMT OF THICK CLEAR SECRETIONS FROM BOTH TRACH AND STOMA, B\S DIMINISHED AND AIRWAY IS PATENT TRACH CARE DONE: CHANGED TRACH TIE AND GAUZE, PT IS RESTING WITH NO SIGNS OF DISTRESS NOTED AT THIS TIME
--- NOTE | 2017-04-02 16:00 | NUR ---
PT RESTING IN BED, NO S/S OF RESPIRATORY DISTRESS OR DISCOMFORT NOTED, CALL LIGHT WITHIN REACH.
--- NOTE | 2017-04-02 17:14 | NUR ---
vent check no sxn required at this time, b\s diminished and airway is patent and family at bedside
--- NOTE | 2017-04-02 19:25 | NUR ---
RECEIVED PT WITH EYES CLOSED, OPEN EYES TO TOUCH, APHASIC, WITH TRACH TO VENT, VITAL SIGNS STABLE, NO SIGNS OF DISTRESS, IVF INFUSING WELL, NGT TO LEFT NARES ATTACHED TO LOW INTERMITTENT SUCTION WITH YELLOW GREEN OUTPUT SMALL AMOUNT, HILTON CATH IN PLACE WITH YELLOW URINE, DRESSING TO GT STOMA DRY AND INTACT, REPOSITION Q2H AND PRN, SUCTION SECRETION PRN, SAFETY MEASURES IN PLACE, CALL LIGHT WITHIN REACH.
--- NOTE | 2017-04-02 19:30 | NUR ---
ENDORSED PT TO [employer]ALL FOREM[employer] NURSE FOR CONTINUITY OF CARE. PT STABLE AT THIS TIME.
--- NOTE | 2017-04-02 20:28 | NUR ---
DUE MEDICATION CRUSHED AND GIVEN THRU NGT AFTER VERIFICATION OF PROPER PLACEMENT, CLAMPED NGT FOR 3 HOURS ORDERED AFTER GIVEN PO MEDS, KEEP HOB AT 30 DEGREES, ALL NEEDS ANTICIPATED.
--- NOTE | 2017-04-02 22:40 | NUR ---
BM WITH SMALL LOOSE STOOL, PERINEAL CARE DONE, KEEP SKIN AND CLEAN AND DRY.
--- NOTE | 2017-04-02 23:30 | NUR ---
DUE IV ANTIBIOTIC ADMINISTERED, RESUMED NGT TO LOW INTERMITTENT SUCTION, VITAL SIGNS STABLE, SB ON TELE, ASYMPTOMATIC, NO SIGNS OF RESP DISTRESS, ORAL CARE DONE WITH VAP KIT, SUCTION PRN, REPOSITION Q2H AND OFFLOAD PRESSURE AREAS, CONTINUE TO MONITOR CLOSELY.
[2017-04-03] VITALS: BP 122/73
[2017-04-03] MEDS: POTASSIUM CHL 20 MEQ/D5-1/2NS 1,000 ML IV SCH ×2 (00:13→12:19)
[2017-04-03 04:26] VITALS: BP 128/68
--- NOTE | 2017-04-03 04:50 | NUR ---
DRESSING WITH MODERATE AMOUNT OF GREENISH YELLOW DRAINAGE, GT STOMA CLEANS WITH NORMAL SALINE, PACKED WITH IODOFORM STRIP AND COVERED WITH GAUZE, ORAL CARE DONE WITH VAP KIT, SUCTION SECRETION PRN, MONITORED CLOSELY.
--- NOTE | 2017-04-03 05:54 | NUR ---
BLOOD SUGAR CHECKED WITH 140 RESULT, WITH 200ML GREENISH YELLOW COLORED NGT DRAINAGE NOTED THE WHOLE SHIFT.
[2017-04-03 06:05] LABS: BASOPHILS # (AUTO) 0.2 K/uL (0.00-0.22); BASOPHILS % (AUTO) 2.3 % (0.0-2.0); EOSINOPHILS # (AUTO) 0.4 K/uL (0-0.4); EOSINOPHILS % (AUTO) 5.7 % (0.0-4.0); HEMATOCRIT 27.9 % (36-48); HEMOGLOBIN 9.2 g/dL (12.0-16.0); LYMPHOCYTES # (AUTO) 1.6 K/uL (2.5-16.5); LYMPHOCYTES % (AUTO) 20.9 % (20.5-51.1); MEAN CORPUSCULAR HEMOGLOBIN 27 pg (27-31); MEAN CORPUSCULAR HGB CONC 33 g/dL (33-37); MEAN CORPUSCULAR VOLUME 80 fL (80-94); MONOCYTES # (AUTO) 0.4 K/uL (0.8-1.0); MONOCYTES % (AUTO) 5.4 % (1.7-9.3); NEUTROPHILS # (AUTO) 5.1 K/uL (1.8-7.7); NEUTROPHILS % (AUTO) 65.7 % (42.2-75.2); PLATELET COUNT (AUTO) 377 K/uL (140-450); RED BLOOD CELL COUNT(AUTO) 3.48 MIL/uL (4.20-5.40); RED CELL DISTRIBUTION WIDTH 16.7 % (11.6-13.7); WHITE BLOOD COUNT (AUTO) 7.7 K/uL (4.8-10.8)
[2017-04-03 06:34] LABS: ANION GAP 12.9 (8-16); CARBON DIOXIDE 22.9 mmol/L (21-32); CHLORIDE 114 mmol/L (98-107); CREATININE 0.8 mg/dL (0.6-1.3); GLUCOSE 143 mg/dL (74-106); SODIUM SERUM 147 mmol/L (136-145); UREA NITROGEN, BLOOD 8 mg/dL (7-18)
[2017-04-03] MEDS ORDERED: VANCOMYCIN PER PHARMACY MC PRN (06:50)
--- NOTE | 2017-04-03 06:52 | NUR ---
RECEIVED PT ON [place] ON A/C 12 VT500 PEEP5 FIO2 28 ALARMS ARE 0N AND FUNCTIONAL BMV HOB PT TRACH SHILEY DCT SIZE 6.0 IS SECURE BS CLEAR CUFF PRESSURE 28 CM PT IN HF QUIET NO APPARENT DISTRESS VENT PLUUGED INTO RED OUTLET Addendum: 04/03/17 at 0906 by Cee Granados RT CONT POX IN PLACE
[2017-04-03] MEDS: BLOOD GLUCOSE MONITORING 1 DEV DEV FS SCH ×4 (06:54→21:06)
--- NOTE | 2017-04-03 07:20 | NUR ---
PT SLEEPING, NO SIGNS OF DISTRESS, REPORT GIVEN TO FAUZIA PAREKH FOR CONTINUITY OF CARE.
--- NOTE | 2017-04-03 07:25 | NUR ---
RECEIVED REPORT FROM SCRAP METAL BURNER NURSE, PT IS RESTING IN BED AWAKE, PT IS A/OX1, UNABLE TO AMBULATE, PT HAS IV ON THE RIGHT FOREARM, PATENT, INTACT, FLUSHING WELL, PT ALSO HAS IV ON THE LEFT HAND, PATENT, INTACT, FLUSHING WELL, SL, PT HAS NG TUBE ON LEFT NARE WITH 200ML OUTPUT AT THIS TIME, PT ON TRACH TO VENT, HILTON CATHETER IS IN PLACE WITH 100ML OF CLEAR, YELLOW URINE, NO S/S OF RESPIRATORY DISTRESS OR DISCOMFORT NOTED, DISCUSSED PLAN OF CARE WITH PT, PT UNABLE TO VERBALIZED UNDERSTANDING, SAFETY/FALL PRECAUTIONS ARE IN PLACE, CALL LIGHT IS WITHIN REACH, WILL CONTINUE TO MONITOR.
[2017-04-03 07:31] LABS: POTASSIUM 2.8 mmol/L (3.5-5.1)
[2017-04-03 08:00] VITALS: BP 122/66
--- NOTE | 2017-04-03 08:53 | NUR ---
VENT CHECK BS CLEAR AIRWAY IS PATENT
[2017-04-03] MEDS ORDERED: POTASSIUM CHLORIDE 20% 40 MEQ/15 ML UDC GT SCH (09:00)
[2017-04-03] MEDS: MULTIVITAMIN/MINERALS 1 TAB GT SCH (09:11)
[2017-04-03] MEDS: SENNA 8.6 MG TAB PO SCH (09:12)
[2017-04-03] MEDS: LEVOTHYROXINE 0.075 MG TAB GT SCH (09:12)
[2017-04-03] MEDS: POTASSIUM CHLORIDE 20% 40 MEQ/15 ML UDC GT SCH (09:12)
[2017-04-03] MEDS: LACTOBACILLUS RHAMNOSUS GG 1 EACH CAP GT SCH (09:12)
[2017-04-03] MEDS: levETIRAcetam 100 MG/ML ORASYR GT SCH ×2 (09:12→20:38)
--- NOTE | 2017-04-03 09:12 | NUR ---
DUE MEDICATIONS GIVEN, PT TOLERATED WELL, NO S/S OF RESPIRATORY DISTRESS OR DISCOMFORT NOTED, CALL LIGHT WITHIN REACH.
[2017-04-03] MEDS: MUPIROCIN 2% OINT 22 GM TUBE TP SCH (09:14)
[2017-04-03] MEDS: CHLORHEXADINE GLUC 2% CLOTH TP SCH (09:14)
--- NOTE | 2017-04-03 10:00 | NUR ---
WOUND CARE EVALUATION NOTE: REASON FOR EVALUATION: S/P GT REMOVAL STOMA SITE COMPLETE SKIN ASSESSMENT DONE ON THIS 86 Y/O FEMALE PAT[place] [facility] [place] [facility], WITH INITIAL DIAGNOSIS OF SOB. PAST MEDICAL HISTORY INCLUDE HYPERTENSION,DIABETIC, CVA, CHRONIC RESPIRATORY FAILURE WITH VENTILATOR. ALL ABOVE INFORMATION WAS OBTAINED FROM THE ADMISSION H&P. LABS ARE WBC 7.7, H/H 9.2/27.9, GLUCOSE 143 AND ALBUMIN 1.9. CURRENT MEDS INCLUDE PIPERACILLIN, LEVOTHYROXINE, ALBUTEROL AND INSULIN. SKIN WARM TO TOUCH WNL, SKIN TURGOR GOOD. CAPILLARY REFILLED <3 SEC. TOENAILS ARE SHORT AND THICKENED, NO HAIR GROWTH, BILATERAL DORSAL PEDAL PULSES PRESENT.INCONTINENT BOWEL, PLAN OF CARE DISCUSS WITH PRIMARY RN INTEGUMENTARY: BILATERAL LOWER EXTREMITIES -DRYNESS TRACHEOSTOMY STOMA SITE CLEAN AND DRY, RACHAEL STOMA SKIN INTACT S/P GT REMOVAL STOMA SITE 1.5X1.5 CM, RACHAEL STOMA SKIN INTACT LEFT AND RIGHT HEELS- BLANCHABLE REDNESS RECOMMENDATIONS: -APPLY HYGRAGUARD TO BLE QD, VICKY -CLEANSE GT STOMA SITE WITH NS, PAT DRY, PACK WITH IODOFORM AND COVER WITH DRESSING AND SECURE WITH TAPE QD AND PRN IF SOILING -TURN AND REPOSITION PATIENT Q 2H , PLEASE USE LINEN AND PDS LESS THAN 3 LAYER -ASSESS AND MONITOR SKIN CONDITION DURING POSITION CHANGE, PLEASE PAY ATTENTION TO HEELS -OFFLOAD BILATERAL HEELS BY PLACING PILLOWS UNDER CALVES AT ALL TIMES, UNLESS OTHERWISE CONTRAINDICATED -PRESSURE REDISTRIBUTION SURFACE THERAPY -KEEP SKIN CLEAN AND DRY AT ALL TIMES. MAY APPLY BODY LOTION TO DRYNESS AREA. RECOMMENDATIONS DISCUSSED WITH PRIMARY RN WILL FOLLOW UP PATIENT Q7- 10 DAYS AND PRN. PLEASE CONTACT WOUND CARE NURSE FOR ANY CONCERNS, QUESTIONS AND CHANGES IN SKIN CONDITION.
--- NOTE | 2017-04-03 10:15 | NUR ---
PATIENT IS RESTING IN BED, NO S/S OF RESPIRATORY DISTRESS OR DISCOMFORT NOTED, PT FAMILY IS AT BEDSIDE, EDUCATED THE FAMILY MEMBER ON THE NEED FOR GOWN AND GLOVES SINCE PATIENT IS ON CONTACT PRECAUTIONS. FAMILY VERBALIZED UNDERSTANDING BUT SAID SHE WAS ON HER WAY OUT SO WOULD NOT GOWN UP AT THIS TIME.
--- NOTE | 2017-04-03 11:07 | NUR ---
VENT CHECK BS RHONCI I\L LAVAGE AND SX MOD CLEAR SECRETIONS
[2017-04-03] MEDS: VANCOMYCIN 1GM/DEXT 5% PREMIX 200 ML IV SCH (11:50)
[2017-04-03 12:00] VITALS: BP 134/78
--- NOTE | 2017-04-03 12:04 | NUR ---
PT RESTING IN BED, CALL LIGHT WITHIN REACH.
[2017-04-03] MEDS ORDERED: NACL 0.9% IRR 250 ML BOTTLE IR PRN (12:05)
--- NOTE | 2017-04-03 12:30 | NUR ---
G TUBE STOMA DRESSING SATURATED, DRESSING CHANGED. PT TOLERATED WELL, WILL CONTINUE TO MONITOR.
--- NOTE | 2017-04-03 12:47 | NUR ---
CM NOTE CONCURRENT REVIEW FAXED TO [facility] [phone] [facility] [phone].
[2017-04-03] MEDS: PIPER/TAZO 3.375GM/D5W PREMIX 50 ML IV SCH ×2 (13:12→20:40)
[2017-04-03] MEDS: NACL 0.9% IRR 250 ML BOTTLE IR SCH (13:12)
[2017-04-03] MEDS: HYDRAGUARD CREAM TP SCH (13:13)
--- NOTE | 2017-04-03 13:17 | NUR ---
VENT CHECK BS RHONCI I\L LAVAAGE AND SX MOD CLEAR SECRETIONS
[2017-04-03] MEDS: FERRIC GLUCONATE 125 MG in NACL 0.9% 100 ML IV SCH (14:05)
--- NOTE | 2017-04-03 14:59 | NUR ---
VENT CHECK BS RHONCI I\L LAVAGE AND SX MOD WHITE CONT. POX IN PLACE
--- NOTE | 2017-04-03 15:33 | NUR ---
PT TRANSFERRED TO WOUND CARE BED, PATIENT TOLERATED WELL.
[2017-04-03 16:00] VITALS: BP 122/69
--- NOTE | 2017-04-03 16:53 | NUR ---
VENT CHECK BS RHONCI I\L LAVAGE AND SX MOD CLEAR SECRETIONS
--- NOTE | 2017-04-03 16:53 | NUR ---
PAGED DR. SINGH TO ASK REGARDING FEEDING RESTARTING FEEDING FOR PT.
--- NOTE | 2017-04-03 17:00 | NUR ---
SPOKE TO DR. SINGH, PER DR. SINGH HE WILL DO EGD WITH NEW GASTRIC TUBE TOMORROW 04/04/17 AND HE WILL NOTIFY THE ARMAMENT MECHANIC.
--- NOTE | 2017-04-03 19:22 | NUR ---
ENDORSED PT TO SOLUTION CONSULTANT NURSE FOR CONTINUITY OF CARE. PT STABLE AT THIS TIME.
--- NOTE | 2017-04-03 19:30 | NUR ---
RECEIVED REPORT FROM DAY RN. PATIENT RESTING IN BED, AWAKE, APHASIC. NO S/S OF DISTRESS NOTED, RESPIRATION EVEN AND UNLABORED, TRACH TO VENT. IV RT FA 20G PATENT AND INTACT, INFUSING D5 1/5NS + KCL 40MEQ, NG TUBE TO LEFT NARE, ON LOW INTERMITTENT SUCTION. HILTON IN PLACE, DRAINING URINE BY GRAVITY. DRESSING OVER THE G-TUBE STOMA CLEAN AND INTACT. WOUND CARE BED IS IN PLACE AND ACTIVE. CALL LIGHT WITHIN REACH SAFETY MEASURE ENSURED ,WILL CONTINUE TO MONITOR. Addendum: 04/03/17 at 2039 by Elif Garcia RN 20MEQ KCL
[2017-04-03 20:00] VITALS: BP 122/87
--- NOTE | 2017-04-03 21:07 | NUR ---
DUE MEDICATION GIVEN, NOTED PATIENT HAD BOWEL MOVEMENT, CLEANED AND REPOSITIONED PATIENT TO HER LEFT. NO S/S OF DISTRESS NOTED, RESPIRATION EVEN AND UNLABORED, CALL LIGHT WITHIN REACH, SAFETY MEASURE ENSURED, WILL CONTINUE TO MONITOR.
--- NOTE | 2017-04-03 23:10 | NUR ---
PATIENT RESTING IN BED, AWAKE ALERT. NO S/S OF DISTRESS NOTED, WOUND BED MODE IS ACTIVE. REPOSITIONED PATIENT TO HER RT SIDE. PATIENT TOLERATED WELL. CALL LIGHT WITHIN REACH, SAFETY MEASURE ENSURED, WILL CONTINUE TO MONITOR.
[2017-04-04] VITALS: BP 123/72
--- NOTE | 2017-04-04 00:15 | NUR ---
PATIENT WAS SLEEPING, BUT EASY TO AROUSE. VITAL SIGNS STABLE, WOUND BED MODE IS ACTIVE. REPOSITIONED PATIENT TO HER LT SIDE.
--- NOTE | 2017-04-04 00:30 | NUR ---
TURNED NG TUBE SUCTION BACK ON LOW POWER INTERMITTENT.
--- NOTE | 2017-04-04 02:12 | NUR ---
PATIENT IS SLEEPING, EASY TO AROUSE. NO S/S OF DISTRESS NOTED, REPOSITIONED PATIENT TO HER RT SIDE. CALL LIGHT WITHIN REACH, SAFETY MEASURE ENSURED, WILL CONTINUE TO MONITOR.
[2017-04-04 04:00] VITALS: BP 119/66
--- NOTE | 2017-04-04 04:15 | NUR ---
HEAT RATE 42, ASSESSED PATIENT AT BEDSIDE. PATIENT WAS SLEEPING, BUT EASY TO AROUSE. HEART RATE IS 52 AT THIS TIME. NO S/S OF DISTRESS NOTED, CALL LIGHT WITHIN REACH, SAFETY MEASURE ENSURED, WILL CONTINUE TO MONITOR. Addendum: 04/04/17 at 0519 by Elif Garcia RN REPOSITIONED PATIENT TO HER LT SIDE
[2017-04-04] MEDS: PIPER/TAZO 3.375GM/D5W PREMIX 50 ML IV SCH ×3 (05:44→21:51)
--- NOTE | 2017-04-04 06:05 | NUR ---
PATIENT IS SLEEPING, NO CHANGE IN CONDITION. REPOSITIONED PATIENT TO HER RT SIDE. WILL CONTINUE TO MONITOR.
[2017-04-04 06:32] LABS: ANION GAP 11.8 (8-16); CARBON DIOXIDE 23.7 mmol/L (21-32); CHLORIDE 115 mmol/L (98-107); CREATININE 0.8 mg/dL (0.6-1.3); GLUCOSE 150 mg/dL (74-106); POTASSIUM 3.5 mmol/L (3.5-5.1); SODIUM SERUM 147 mmol/L (136-145); UREA NITROGEN, BLOOD 6 mg/dL (7-18)
[2017-04-04] MEDS: BLOOD GLUCOSE MONITORING 1 DEV DEV FS SCH ×4 (06:32→21:47)
[2017-04-04 06:38] LABS: BASOPHILS # (AUTO) 0.1 K/uL (0.00-0.22); EOSINOPHILS # (AUTO) 0.4 K/uL (0-0.4); EOSINOPHILS % (AUTO) 5.3 % (0.0-4.0); HEMATOCRIT 26.7 % (36-48); HEMOGLOBIN 8.8 g/dL (12.0-16.0); LYMPHOCYTES # (AUTO) 1.7 K/uL (2.5-16.5); LYMPHOCYTES % (AUTO) 23.9 % (20.5-51.1); MEAN CORPUSCULAR HEMOGLOBIN 27 pg (27-31); MEAN CORPUSCULAR HGB CONC 33 g/dL (33-37); MEAN CORPUSCULAR VOLUME 80 fL (80-94); MONOCYTES # (AUTO) 0.5 K/uL (0.8-1.0); MONOCYTES % (AUTO) 7.6 % (1.7-9.3); NEUTROPHILS # (AUTO) 4.5 K/uL (1.8-7.7); NEUTROPHILS % (AUTO) 62.2 % (42.2-75.2); PLATELET COUNT (AUTO) 401 K/uL (140-450); RED BLOOD CELL COUNT(AUTO) 3.33 MIL/uL (4.20-5.40); RED CELL DISTRIBUTION WIDTH 16.5 % (11.6-13.7); WHITE BLOOD COUNT (AUTO) 7.2 K/uL (4.8-10.8)
--- NOTE | 2017-04-04 07:00 | NUR ---
DR. HDZ HERE TO ASSESS PT.
--- NOTE | 2017-04-04 07:05 | NUR ---
ENDORSED PLAN OF CARE TO DAY FAUZIA LUEVANO. PATIENT IS IN STABLE CONDITION. NO S/S OF DISTRESS NOTED.
--- NOTE | 2017-04-04 07:06 | NUR ---
RECEIVED REPORT AT BEDSIDE FOR CONTINUITY OF CARE. PT ASLEEP. NO SIGNS OF DISTRESS. NG TUBE IN PLACE IN L NARE. SLOW INTERMITTENT SUCTIONING. PER CARDIAC NURSE SPECIALIST, NO-DRAINAGE IN HER SHIFT. GTUBE REMOVED. ONLY STOMA IN PLACE. DRESSING IN PLACE. NOTED DRAINAGE. WILL CHANGE DRESSING LATER. HILTON CATH IN PLACE. CLEAR, YELLOW URINE 200ML IN PLACE. NOTED 2 IV SITES. L HAND 20G TKO. R FA 20G D5 1/2NS W/ KCL 20 MEQ AT 50ML/HR. ALL IV SITES ARE DRY AND INTACT, INFUSING. PT HAS TRACH TO VENT. R/T IS HERE TO SUCTION AND CHECK SETTINGS. NO SIGNS OF DISTRESS, NO SIGNS OF SOB. WILL CONTINUE TO ASSESS PT.
--- NOTE | 2017-04-04 07:35 | NUR ---
RECIVED PT ON VENT WITH SETTINGS CHARTED BREATH SOUNDS PRESENT BILAT CLEAR SXN PT WITH MIN AMT OFF WHITE SECS PT TRACHED WITH BONLEY #6 TRACH SECURE AMBU BAG AT BEDSIDE VENT PLUGGED INTO RED OUTLET
--- NOTE | 2017-04-04 07:45 | NUR ---
V/S WITHIN NORMAL RANGE. BRADYCARDIA. ASYMPTOMATIC. PT STILL SLEEPING. UPDATED BOARD. WILL CONTINUE TO MONITOR PT.
[2017-04-04 08:00] VITALS: BP 115/63
[2017-04-04] MEDS ORDERED: POTASSIUM CHLORIDE 20% 40 MEQ/15 ML UDC NG SCH (08:00)
[2017-04-04] MEDS: LACTOBACILLUS RHAMNOSUS GG 1 EACH CAP GT SCH (09:00)
[2017-04-04] MEDS: POTASSIUM CHLORIDE 20% 40 MEQ/15 ML UDC GT SCH (09:00)
[2017-04-04] MEDS: SENNA 8.6 MG TAB PO SCH (09:00)
[2017-04-04] MEDS: MUPIROCIN 2% OINT 22 GM TUBE TP SCH (09:00)
[2017-04-04] MEDS: LEVOTHYROXINE 0.075 MG TAB GT SCH (09:00)
[2017-04-04] MEDS: levETIRAcetam 100 MG/ML ORASYR GT SCH ×2 (09:00→21:00)
[2017-04-04] MEDS: MULTIVITAMIN/MINERALS 1 TAB GT SCH (09:00)
[2017-04-04] MEDS: CHLORHEXADINE GLUC 2% CLOTH TP SCH (10:07)
[2017-04-04] MEDS: VANCOMYCIN 1GM/DEXT 5% PREMIX 200 ML IV SCH (10:45)
[2017-04-04] MEDS: POTASSIUM CHL 20 MEQ/D5-1/2NS 1,000 ML IV SCH (10:45)
--- NOTE | 2017-04-04 10:50 | NUR ---
IVF CHANGED AND ADMINISTERED VANCOMYCIN. PT TOLERATED WELL. O2 SAT IN THE MID TO LOW 80%. SUCTIONED PT. NO CHANGE. CALLED R/T TO COME ASSESS PT.
--- NOTE | 2017-04-04 11:10 | NUR ---
R/T HERE. INCREASE FIO2 60% WILL BE BACK IN AN HOUR TO REASSESS PT. O2 SAT AT 100% AT THIS TIME.
--- NOTE | 2017-04-04 11:20 | NUR ---
PT'S VANCO INFUSING. NOTED THAT VANCO TROUGH WAS DRAWN, WHILE VANCO IS INFUSING, IS PENDING NOW. OK TO CANCEL THE TROUGH PER SIDDHARTHA MICHAEL. SHE WILL ORDER ANOTHER VANCO TROUGH TOMORROW MORNING. LAB NOTIFIED.
[2017-04-04 12:00] VITALS: BP 132/62
--- NOTE | 2017-04-04 12:03 | NUR ---
LAB CALLED WITH CRITICAL FOR VANCO TROUGH 29.3 HIGH. CALLED [facility] PHARMACIST. OK TO DISREGARD D/T INACCURATE READING D/T VANCO WAS INFUSING AT THE TIME OF DRAW. WILL ORDER A NEW VANCO TROUGH TOMORROW AM.
--- NOTE | 2017-04-04 12:10 | NUR ---
DR NEUMANN, BOARD CATCHER CAME TO SEE PT.
[2017-04-04] MEDS: NACL 0.9% IRR 250 ML BOTTLE IR SCH (13:08)
[2017-04-04] MEDS: HYDRAGUARD CREAM TP SCH (13:09)
[2017-04-04 13:35] LABS: PROTHROMBIN TIME 11.5 secs (10.8-13.4)
--- NOTE | 2017-04-04 13:36 | NUR ---
CM NOTE CONCURRENT REVIEW FAXED TO [facility] [phone] ZACH BAUMANN PH# [phone]. LATEST MICROBIOLOGY RESULTS AND WOUND CARE NOTES FAXED [place] [facility] [place] [phone] ATTN: CHIP PH# [phone].
--- NOTE | 2017-04-04 14:20 | NUR ---
DR. Arnaldo SINGH HERE WITH OR NURSES. WILL BE PROCEDURE AT BEDSIDE. NEW GTUBE SITE ON R UPPER STOMACH. PT TOLERATED WELL. NEW ORDERS: D/C NG TUBE. GTUBE-LOW INTERMITTENT SUCTIONING. PICC LINE FOR TPN UNTIL OLD STOMA/FISTULA IS HEALED. GET CONSENT SIGNED FOR PICC LINE. D/C IDOFORM. NO MORE PACKING OLD GTUBE SITE. JUST GAUZE W/ TAPE.
[2017-04-04] MEDS ORDERED: fentaNYL 0.05 MG/ML VIAL ONE (14:22)
[2017-04-04] MEDS ORDERED: MIDAZOLAM 2 MG/2 ML VIAL ONE (14:22)
[2017-04-04] MEDS: FERRIC GLUCONATE 125 MG in NACL 0.9% 100 ML IV SCH (15:05)
--- NOTE | 2017-04-04 15:30 | NUR ---
DAUGHTER HERE. PT REFUSED BLUE PHONE. REQUESTED MONGOLIAN SPEAKING NURSE FROM [facility]. RN TRANSLATED CONSENT FOR PICC LINE. ANSWERED ALL QUESTIONS. DAUGHTER SIGNED THE CONSENT. IN CHART.
[2017-04-04] MEDS ORDERED: MIDAZOLAM 2 MG/2 ML VIAL IVP ONE (15:40)
[2017-04-04] MEDS ORDERED: fentaNYL 0.05 MG/ML VIAL IVP ONE (15:40)
--- NOTE | 2017-04-04 15:41 | NUR ---
04/04/17 RD FOLLOW UP COMPLETED PLEASE REFER TO NUTRITION PROGRESS NOTE UNDER CARE ACTIVITY FOR ESTIMATED NUTRITION NEEDS. 1. WHEN MEDICALLY APPROPRIATE BEGIN TPN PER PHARMACIST/DOCTOR RECOMMENDATIONS. -WHEN PLACED, RD TO FOLLOW UP WITH TPN ORDER FOR ADEQUACY 2. WHEN MEDICALLY FEASIBLE BEGIN NUTRITION SUPPORT THROUGH GTUBE -RECOMMEND DIABETISOURCE AT 10 ML/HR AND ADVANCE 10 ML Q6H TOLERATED TO GOAL OF 65 ML/HR -AT GOAL, THIS WILL PROVIDE 1560 ML TOTAL VOLUME, 1872 KCAL, 94 GM PROTEIN, [address] TO FOLLOW UP 2-3 DAYS; HIGH NUTRITION RISK DARSHAN MCCARTY RD
[2017-04-04 16:00] VITALS: BP 121/66
--- NOTE | 2017-04-04 18:20 | NUR ---
R/T CHANGED FIO2 SETTING BACK TO 28% INSTEAD OF 60%. O2 SAT STEADY AT 98%. PT TOLERATING WELL. WILL CONTINUE TO MONITOR PT.
--- NOTE | 2017-04-04 19:15 | NUR ---
ENDORSED PT TO THE SIGNAL CONSTRUCTOR NURSE AT BEDSIDE FOR CONTINUITY OF CARE. PT IN STABLE CONDITION.
--- NOTE | 2017-04-04 19:20 | NUR ---
RECEIVED PT IN STABLE CONDITION FROM AM NURSE. AWAKE BUT NON VERBAL. ON TRACH TO VENT. O2 SAT 97%. NO RESPIRATORY DISTRESS NOTED. BEDREST. WITH IVF INFUSING WELL ON THE LT HAND AND ALSO AT THE RT FA. CLEAR AND PATENT. NEW GT CONNECTED TO INTERMITTENT SUCTION. DRAINING GREENISH FLUIDS. OLD GT SITE WITH DRESSING. HILTON CATHETER TO GRAVITY. SUCTIONED MOUTH WITH THIN SALIVA. HAS BLE SCD MACHINE ON. FREQUENT ROUNDS NEEDED. BED ON LOW POSITION. ON CONTACT ISOLATION . WILL CONTINUE TO MONITOR.
[2017-04-04 19:45] VITALS: BP 120/74
--- NOTE | 2017-04-04 21:10 | NUR ---
PICC LINE NURSE HERE FOR PICC LINE INSERTION. WILL ORDER US GUIDE VASCULAR .
--- NOTE | 2017-04-04 21:42 | NUR ---
PICC LINE INSERTION DONE ON THE RT UPPER ARM, DOUBLE LUMEN. XR JUST FINISHED FOR VERIFICATION OF PLACEMENT.
--- NOTE | 2017-04-04 21:47 | NUR ---
BLOOD SUGAR WAS CHECKED RESULT 134. NO INSULIN COVERAGE NEEDED. IVF STILL INFUSING.
--- NOTE | 2017-04-04 22:00 | NUR ---
REPOSITIONED PT FOR COMFORT. TURNED TO SIDE. O2 SAT REMAINS @ 98%- 99%. STABLE WITH NO DISTRESS NOTED.
[2017-04-05 00:10] VITALS: BP 125/66
--- NOTE | 2017-04-05 00:30 | NUR ---
PT TURNED ON HER BACK. NO DISTRESS NOTED. WILL CONTINUE TO MONITOR.
--- NOTE | 2017-04-05 02:00 | NUR ---
PT ASLEEP WITH NO DISCOMFORT NOR DISTRESS NOTED. WILL CONTINUE TO MONITOR.
[2017-04-05 04:00] VITALS: BP 130/70
[2017-04-05] MEDS: PIPER/TAZO 3.375GM/D5W PREMIX 50 ML IV SCH ×3 (04:42→21:09)
[2017-04-05] MEDS: BLOOD GLUCOSE MONITORING 1 DEV DEV FS SCH ×4 (06:06→21:20)
[2017-04-05] MEDS: INSULIN LISPRO SLIDING SCALE 100 UNITS/ML VIAL SUBQ PRN ×2 (06:06→21:33)
--- NOTE | 2017-04-05 06:06 | NUR ---
BLOOD SUGAR CHECKED THIS AM RESULT 163. NO INSULIN COVERAGE NEEDED.
--- NOTE | 2017-04-05 06:30 | NUR ---
NO OUTPUT ON THE GT IN INTERMITTENT SUCTION.
--- NOTE | 2017-04-05 07:04 | NUR ---
DR. HDZ HERE AND SEEN PT.
--- NOTE | 2017-04-05 07:28 | NUR ---
ENDORSED PT IN STABLE CONDITION TO AM NURSE.
--- NOTE | 2017-04-05 07:30 | NUR ---
RECEIVED REPORT FROM NIRU GARCIA AT [facility]. PT IS APHASIC, NO S/S OF ACUTE DISTRESS. FLACC-0. IV SITE PATENT AND INTACT. PICC LINE NOTED TO RIGHT UPPER ARM. HILTON PATENT. G-TUBE NOTED. SACRAL REDNESS NOTED. CALL LIGHT WITHIN REACH. SAFETY MEASURES ENSURED. WILL CONTINUE TO MONITOR.
[2017-04-05 08:00] VITALS: BP 137/74
[2017-04-05] MEDS: LACTOBACILLUS RHAMNOSUS GG 1 EACH CAP GT SCH (09:00)
[2017-04-05] MEDS: SENNA 8.6 MG TAB PO SCH (09:00)
[2017-04-05] MEDS: POTASSIUM CHLORIDE 20% 40 MEQ/15 ML UDC GT SCH (09:00)
[2017-04-05] MEDS: LEVOTHYROXINE 0.075 MG TAB GT SCH (09:00)
[2017-04-05] MEDS: levETIRAcetam 100 MG/ML ORASYR GT SCH ×2 (09:00→21:00)
[2017-04-05] MEDS: MULTIVITAMIN/MINERALS 1 TAB GT SCH (09:00)
[2017-04-05] MEDS: MUPIROCIN 2% OINT 22 GM TUBE TP SCH (09:22)
[2017-04-05] MEDS: CHLORHEXADINE GLUC 2% CLOTH TP SCH (09:22)
--- NOTE | 2017-04-05 09:24 | NUR ---
AM MEDICATIONS FOR GT HELD PT IS NPO AND ON SUCTION. NO S/S OF ACUTE DISTRESS. WILL CONTINUE TO MONITOR.
[2017-04-05] MEDS: POTASSIUM CHL 20 MEQ/D5-1/2NS 1,000 ML IV SCH (11:14)
[2017-04-05] MEDS ORDERED: TPN PER PHARMACY MC PRN (11:30)
[2017-04-05 11:54] LABS: CARBON DIOXIDE 22.8 mmol/L (21-32); CHLORIDE 113 mmol/L (98-107); CREATININE 0.8 mg/dL (0.6-1.3); GLUCOSE 128 mg/dL (74-106); SODIUM SERUM 147 mmol/L (136-145); UREA NITROGEN, BLOOD 5 mg/dL (7-18)
[2017-04-05 11:56] LABS: MAGNESIUM 1.4 mg/dL (1.8-2.4); PHOSPHORUS 2.1 mg/dL (2.5-4.9); POTASSIUM 2.8 mmol/L (3.5-5.1)
[2017-04-05 12:00] VITALS: BP 132/77
[2017-04-05] MEDS: NACL 0.9% IRR 250 ML BOTTLE IR SCH (12:06)
[2017-04-05] MEDS: HYDRAGUARD CREAM TP SCH (12:06)
[2017-04-05] MEDS: VANCOMYCIN 1GM/DEXT 5% PREMIX 200 ML IV SCH (12:06)
--- NOTE | 2017-04-05 12:42 | NUR ---
PT RESTING IN BED. NO S/S OF ACUTE DISTRESS. FLACC-0. CALL LIGHT WITHIN REACH. SAFETY MEASURES ENSURED. WILL CONTINUE TO MONITOR.
[2017-04-05] MEDS ORDERED: KCL 20 MEQ/WATER INJ PREMIX 100 ML IV SCH (13:00)
--- NOTE | 2017-04-05 13:21 | NUR ---
review faxed to [facility] at [phone].
[2017-04-05] MEDS: FERRIC GLUCONATE 125 MG in NACL 0.9% 100 ML IV SCH (14:03)
--- NOTE | 2017-04-05 14:57 | NUR ---
PT RESTING IN BED. NO S/S OF ACUTE DISTRESS. FLACC-0. WILL CONTINUE TO MONITOR.
[2017-04-05] MEDS ORDERED: MAG SULF 2000 MG/WATER PREMIX 50 ML IV SCH (15:00)
[2017-04-05 16:00] VITALS: BP 125/72
--- NOTE | 2017-04-05 17:57 | NUR ---
DR. FLORIAN IN TO SEE PT
--- NOTE | 2017-04-05 19:16 | NUR ---
ENDORSED PLAN OF CARE TO NIGHT RN. PT REMAINS STABLE.
--- NOTE | 2017-04-05 19:20 | NUR ---
RECEIVED PT IN STABLE CONDITION FROM AM NURSE. PT AWAKE, BUT APHASIC. WITH TRACH TO VENT, O2 SAT 98%. NO ACUTE RESPIRATORY DISTRESS NOTED. ON TEL MONITOR-SB. BEDREST. WITH IVF INFUSING WELL ON THE RT UPPER ARM PICC LINE X2 LUMEN. CLEAR AND PATENT. ALSO STILL WITH RT FA IV ACCESS AND LT HAND HL. SKIN WITH SOME REDNESS ON SACRAL AREA. HAS GT CONNECTED TO INTERMITTENT SUCTION, WITH GREENISH DRAINAGE. STOMA WITH DRESSING DRY AND CLEAN. HILTON CATHETER TO GRAVITY. BED ON LOW POSITION . CONTINUOUS PULSE OXIMETER ON. FREQUENT ROUNDS NEEDED. WILL CONTINUE TO MONITOR.
[2017-04-05 19:59] VITALS: BP 130/63
[2017-04-05] MEDS ORDERED: MULTIVITAMIN-12 10 ML in DEXTROSE 50% 480 ML, AMINO ACIDS 8.5% 480 ML IV SCH ×3 (20:00)
--- NOTE | 2017-04-05 21:33 | NUR ---
BLOOD SUGAR WAS CHECKED RESULT 162. INSULIN COVERAGE SUBQ GIVEN. WILL DO BS CHECK Q6HRS AFTER WITH THE TPN INFUSING.
--- NOTE | 2017-04-05 22:00 | NUR ---
REPOSITIONED PT FOR COMFORT. PT IS CLEAN AD DRY.
--- NOTE | 2017-04-05 23:00 | NUR ---
RT AUBREE CAME AND SUCTIONED PT. OBTAINED A CREAMY SECRETIONS. PT O2 SAT REMAINS STABLE.
[2017-04-06] VITALS: BP 110/52
[2017-04-06] MEDS: BLOOD GLUCOSE MONITORING 1 DEV DEV MC SCH ×2 (00:25→05:54)
[2017-04-06] MEDS: INSULIN LISPRO SLIDING SCALE 100 UNITS/ML VIAL SUBQ PRN (00:26)
--- NOTE | 2017-04-06 02:00 | NUR ---
MADE ROUNDS. PT NEED SUCTIONING, OBTAINED WHITISH TO CREAMY SECRETIONS. NO DISTRESS NOTED.
--- NOTE | 2017-04-06 02:49 | NUR ---
HR ON TELE MONITOR IS 39. CHECKED ON PT. PT IS ASLEEP. NOT ON ANY RESPIRATORY DISTRESS. VITAL SIGNS TAKEN TEMP -98.5 BP 102/62 RESP 14 HR 44 WITH O2 SAT 100%. WILL CONTINUE TO MONITOR.
[2017-04-06 03:30] VITALS: BP 102/62
--- NOTE | 2017-04-06 04:00 | NUR ---
HAS BEEN REPOSITIONED FOR COMFORT. O2 SAT REMAINS STABLE @99%-100%. WILL CONTINUE TO MONITOR.
[2017-04-06] MEDS: PIPER/TAZO 3.375GM/D5W PREMIX 50 ML IV SCH (04:57)
--- NOTE | 2017-04-06 05:56 | NUR ---
BLOOD SUGAR WAS CHECKED THIS AM RESULT 113. NO INSULIN NEEDED.
--- NOTE | 2017-04-06 06:59 | NUR ---
PATIENT AWAKE AND QUIET. VENT SETTINGS DOCUMENTED. BREATH SOUNDS CLEAR BILATERALLY. SMALL THIN CLEAR SECRETIONS. PATIENT APPEARS COMFORTABLE. NO SOB OR RESPIRATORY DISTRESS NOTED. ALARMS ARE SET AND AUDIBLE. CONTINUOUS PULSE OX MONITORING IN PLACE. VENT PLUGGED INTO RED OUTLET. AMBU BAG AT BEDSIDE. WILL CONTINUE TO MONITOR. - WILLIE PATHAK
[2017-04-06] MEDS ORDERED: LORazepam 2 MG/ML VIAL IVP PRN (07:15)
[2017-04-06] MEDS ORDERED: HYDROcodone/APAP 5/325 MG 1 TAB TAB GT PRN ×2 (07:15)
[2017-04-06] MEDS ORDERED: VANCOMYCIN PER PHARMACY MC PRN (07:15)
--- NOTE | 2017-04-06 07:20 | NUR ---
DR. HDZ HERE. MADE HIM AWARE OF THE LOW HR -39 EARLIER THIS AM WITH NO DISTRESS NOTED.
--- NOTE | 2017-04-06 07:28 | NUR ---
ENDORSED PT IN STABLE CONDITION TO AM NURSE.
--- NOTE | 2017-04-06 07:29 | NUR ---
RECEIVED REPORT FROM COMMERCIAL ELECTRICIAN NURSE. PATIENT IN STABLE CONDITION, NO DISTRESS NOTED. PATIENT IS LYING IN BED. AWAKE, ALERT, NON-VERBAL. NO PAIN NOTED USING FLAAC SCALE. SKIN COLOR APPROPRIATE TO ETHNICITY, WARM TO TOUCH. IS ON VENTILATOR: FIO2 28%, O2:40L/MIN, AC:12, TV:500, PEP:5. RESPIRATIONS EVEN, BILATERAL CHEST RISE. ON TELE MONITOR, SINUS BRADIACARDIA. HILTON CATHETER IN PLACE, PATENT, DRAINING CLEAR YELLOW URINE. HAS LEFT UPPER ABD OLD GTUBE WOUND THAT IS HEALING. HAS NEW GTUBE PLACEMENT ON RIGHT ABD THAT IS ON INTERMITTENT SUCTION, NO GTUBE FEEDING AT THIS TIME. PICC DOUBLE LUMEN ON LEFT UPPER ARM INTACT, PATENT, AND INFUSING TPN @ 40ML/HR. SUCTIONED PATIENT, PATIENT TOLERATED WELL. REVIEWED PLAN OF CARE WITH PATIENT. SAFETY MEASURES IN PLACE, FALL PREVENTIONS IN PLACE PER PROTOCOL, CONTACT PRECAUTIONS IN PLACE, HAS LEFT MITTEN ON TO PREVENT PATIENT FROM PULLING TUBES, CALL LIGHT WITHIN REACH, PATIENT'S ROOM IN FRONT OF NURSE'S STATION. WILL CONTINUE TO MONITOR.
[2017-04-06 08:00] VITALS: BP 135/67
--- NOTE | 2017-04-06 09:14 | NUR ---
CM NOTE FAXED CONCURRENT REVIEW TO [facility] [phone] PH# IBIS [phone]. NOTIFIED OF ORDER FOR DISCHARGE TODAY AND FAXED [place] INFO [place] [facility] [place] [phone] ATTN: CHIP PH# [phone]
[2017-04-06] MEDS: LACTOBACILLUS RHAMNOSUS GG 1 EACH CAP GT SCH (09:57)
[2017-04-06] MEDS: levETIRAcetam 100 MG/ML ORASYR GT SCH (09:57)
[2017-04-06] MEDS: LEVOTHYROXINE 0.075 MG TAB GT SCH (09:57)
[2017-04-06] MEDS: POTASSIUM CHLORIDE 20% 40 MEQ/15 ML UDC GT SCH (09:58)
[2017-04-06] MEDS: SENNA 8.6 MG TAB PO SCH (09:58)
--- NOTE | 2017-04-06 10:00 | NUR ---
PATIENT LYING IN BED. NO DISTRESS NOTED. RESPIRATIONS EVEN, ON VENTILATOR VIA TRACH. NO PAIN NOTED USING FLAAC. CONDITION UNCHANGED. TPN INFUSING, MEDICATIONS DUE GIVEN. PERFORMED TRACH SUCTIONING. PATIENT TOLERATED WELL. HELPED ACCOUNT RESOLUTION EXPERT CLEAN PATIENT. SAFETY MEASURES IN PLACE, SEIZURE PRECAUTION IN PLACE, CALL LIGHT WITHIN REACH. GTUBE SITE INTACT, PATENT. WILL CONTINUE TO MONITOR.
[2017-04-06] MEDS: MUPIROCIN 2% OINT 22 GM TUBE TP SCH (10:05)
[2017-04-06 10:31] LABS: ANION GAP 14.1 (8-16); ASPARTATE AMINOTRANSFERASE 22 U/L (15-37); CARBON DIOXIDE 22.9 mmol/L (21-32); CHLORIDE 108 mmol/L (98-107); CREATININE 0.7 mg/dL (0.6-1.3); GLUCOSE 145 mg/dL (74-106); MAGNESIUM 1.8 mg/dL (1.8-2.4); PHOSPHORUS 2.4 mg/dL (2.5-4.9); SODIUM SERUM 142 mmol/L (136-145); TOTAL BILIRUBIN 0.5 mg/dL (0.0-1.0); UREA NITROGEN, BLOOD 6 mg/dL (7-18)
--- NOTE | 2017-04-06 10:59 | NUR ---
CM NOTE PER [facility] PH# [phone], PATIENT CAN GO TO 8 B ANYTIME, ACCEPTING DR. Kalyn HDZ. PER [facility] ZACH BAUMANN PH# [phone], [facility] AUTH# [id number], [facility] TRANSP[facility] AUTH# [id number]. CHARGE NURSE STACIE GAGE. Addendum: 04/06/17 at 1118 by Laura Tellez CM NUMBER TO CALL FOR REPORT AT [facility] PH# [phone]. MARIA GUADALUPE GAGE.
[2017-04-06] MEDS ORDERED: VANCOMYCIN 1GM/DEXT 5% PREMIX 200 ML IV SCH (11:00)
[2017-04-06] MEDS ORDERED: DEXTROSE 10% 1,000 ML IV SCH (11:05)
--- NOTE | 2017-04-06 11:15 | NUR ---
Patient will be discharge back to [facility] room 8. pick up attendant by 1230 pm. [facility]. auth # [id number]
[2017-04-06] MEDS ORDERED: DEXTROSE 10% 1,000 ML IV ONE (12:02)
--- NOTE | 2017-04-06 12:02 | NUR ---
CALLED DR. HDZ REGARDING LAB RESULT, K-3.0, HE SAID HE WILL ORDER WHEN PATIENT IS IN [facility]. [facility] IS HERE TO INSURANCE SPECIALIST PATIENT, PER [facility] THEY DON'T HAVE RN WITH THEM SO THEY CAN'T TRANSFER PATIENT WITH IV FLUIDS RUNNING. NOTIFIED PHARMACY AND SPOKE TO MEDIA, SHE SAID IT'S OK TO TRANSFER LONG MD IS AWARE. NOTIFIED DR. HDZ AND MADE AWARE. REPORTED TO [facility] AND SPOKE TO MIKEY ENCINAS RN AND MADE AWARE.
--- NOTE | 2017-04-06 12:15 | NUR ---
CALLED [facility], AND GAVE REPORT TO MIKEY ENCINAS RN REGARDING PATIENT STAY AT HOSPITAL. [facility] TRANSPORT ALREADY HERE TO TRANSPORT PATIENT TO [facility]. [facility] CANNOT TRANSPORT PATIENT WITH ANY IV'S RUNNING. STOPPED TPN INFUSION AND PERFORMED HEP LOCKED RIGHT FA IV AND RIGHT UPPER PICC DOUBLE LUMEN. D5 1000 ML GIVEN TO TRANSPORT FOR RN TO CONNECT TO PATIENT ONCE PATIENT IS IN [facility]. ALL BELONGINGS WITH PATIENT. PATIENT DISCHARGED IN STABLE CONDITION VIA [facility] WITH [facility] WITH FAMILY MEMBER AT HER SIDE.
== END 2017-04-06 12:15 | disposition home or self-care (01) | DRG 720 ==
LOC: MED 13:33 → MIC 16:40 → UNDOADMIN 16:40 → MTU 04-02 13:38
PROVIDERS: ADMIT Family Medicine; ATTEND Family Medicine
PROC: 5A1955Z Respiratory Ventilation, Greater than 96 Consecutive Hours (ICD-10-PCS; principal; 2017-03-30)
PROC: 30233N1 Transfusion of Nonautologous Red Blood Cells into Peripheral Vein, Percutaneous Approach (ICD-10-PCS; 2017-04-01)
PROC: 0DH63UZ Insertion of Feeding Device into Stomach, Percutaneous Approach (ICD-10-PCS; 2017-04-04)
PROC: 02HV33Z Insertion of Infusion Device into Superior Vena Cava, Percutaneous Approach (ICD-10-PCS; 2017-04-04)
PROC: B548ZZA Ultrasonography of Superior Vena Cava, Guidance (ICD-10-PCS; 2017-04-04)
PROC: 3E0G76Z Introduction of Nutritional Substance into Upper GI, Via Natural or Artificial Opening (ICD-10-PCS; 2017-04-05)
DX: A41.9 Sepsis, unspecified organism (principal); R65.21 Severe sepsis with septic shock; J18.9 Pneumonia, unspecified organism; Z99.11 Dependence on respirator [ventilator] status; K31.6 Fistula of stomach and duodenum; G93.40 Encephalopathy, unspecified; J96.10 Chronic respiratory failure, unspecified whether with hypoxia or hypercapnia; F03.90 Unspecified dementia, unspecified severity, without behavioral disturbance, psychotic disturbance, mood disturbance, and anxiety; K27.4 Chronic or unspecified peptic ulcer, site unspecified, with hemorrhage; K56.7 Ileus, unspecified; Z66 Do not resuscitate; D63.8 Anemia in other chronic diseases classified elsewhere; B96.4 Proteus (mirabilis) (morganii) as the cause of diseases classified elsewhere; B96.89 Other specified bacterial agents as the cause of diseases classified elsewhere; K94.23 Gastrostomy malfunction; M81.0 Age-related osteoporosis without current pathological fracture; N39.0 Urinary tract infection, site not specified; I10 Essential (primary) hypertension; G40.909 Epilepsy, unspecified, not intractable, without status epilepticus; R14.0 Abdominal distension (gaseous); D64.9 Anemia, unspecified; E11.9 Type 2 diabetes mellitus without complications; L03.311 Cellulitis of abdominal wall; Y95 Nosocomial condition; E03.9 Hypothyroidism, unspecified; E86.0 Dehydration; Z86.73 Personal history of transient ischemic attack (TIA), and cerebral infarction without residual deficits; Z74.01 Bed confinement status; Y83.3 Surgical operation with formation of external stoma as the cause of abnormal reaction of the patient, or of later complication, without mention of misadventure at the time of the procedure; Y92.89 Other specified places as the place of occurrence of the external cause; Z79.84 Long term (current) use of oral hypoglycemic drugs
CPT/HCPCS: 36415; 51702; 71010; 74000; 76700; 80048; 80053; 80202; 81001; 82272; 82948; 83605; 83735; 84100; 84478; 85025; 85610; 85730; 86886; 86900; 86901; 86920; 87040; 87070; 87077; 87081; 87086; 87186; 87205; 93005; 94003; 94640; 96365; 99285; A9153; C1751; J1815; J1940; J2001; J2250; J2543; J2916; J3010; J3370; J3475; J3480; J7030; J7060; J7613; J7644; P9016; Q0092

== ENCOUNTER 2017-05-05 14:00 | Inpatient (IN) | payer OTHER, MEDICARE ==
[~2017-05-05] VITALS: Ht 149.9 cm; Wt 64.4 kg
[2017-05-05] VITALS (29 sets, daily range): BP systolic 65–132; BP diastolic 36–71
[~2017-05-05 14:00] MED LIST: BISA-213 RC; CAPT25TA10 GT; CRAN450T4 GT; DOCU-299 GT; GLIP5TAB4 GT; KEP500L GT; LACT1CAP72 GT; LANO1OIN26 OP; MIRABULK GT; MULT-1328 GT; POTA10TE30 GT; PROSTAT SUGAR FREE GT; SIME80CT70 GT; SYN.075 GT; VITD1000 GT
--- NOTE | 2017-05-05 14:00 | NUR ---
1355 - Patient was BIBA and taken to bed 01 via gurney per EMS. RT at bedside.
--- NOTE | 2017-05-05 14:02 | NUR ---
86 YO FEMALE BIB EMS FROM [facility] [place] AND HIGH WHITE COUNT.PT ON TRACT WITH VENT . RESPONE TO PAIN STIMULI, NOT OPEN HER EYE. LUNGS CLEAR BL; PATIENT POSITIONED FOR COMFORT; HOB ELEVATED; BEDRAILS UP X2; BED DOWN. TIFFANIE REYNAGA MADE AWARE OF PT STATUS. Addendum: 05/05/17 at 1631 by MED1 [facility] VENT SET [id number]%, VT 500, R12, FLOW 40.
[2017-05-05] MEDS ORDERED: NACL 0.9% 1,000 ML IV ONE ×3 (14:05→17:10)
--- NOTE | 2017-05-05 14:18 | NUR ---
Note bebe in EDM - 05/05/17 at 1421 by [facility] Patient will be admitted to care of DR MUÑOZ. Admited to TELE. Will go to [id number]. Belongings list completed. Report to FAUZIA LUEVANO.
[2017-05-05 14:43] LABS: HEMATOCRIT 33.4 % (36-48); HEMOGLOBIN 10.9 g/dL (12.0-16.0); MEAN CORPUSCULAR HEMOGLOBIN 27 pg (27-31); MEAN CORPUSCULAR HGB CONC 33 g/dL (33-37); MEAN CORPUSCULAR VOLUME 83 fL (80-94); PLATELET COUNT (AUTO) 306 K/uL (140-450); RED BLOOD CELL COUNT(AUTO) 4.03 MIL/uL (4.20-5.40); RED CELL DISTRIBUTION WIDTH 18.3 % (11.6-13.7); WHITE BLOOD COUNT (AUTO) 25.1 K/uL (4.8-10.8)
[2017-05-05 15:00] LABS: PROTHROMBIN TIME 10.4 secs (10.8-13.4)
[2017-05-05 15:01] LABS: LYMPHOCYTES % (MANUAL) 4 % (20-46); MONOCYTES % (MANUAL) 3 % (5-12)
[2017-05-05 15:02] LABS: ALBUMIN 2.6 g/dL (3.4-5.0); ANION GAP 15.8 (8-16); ASPARTATE AMINOTRANSFERASE 34 U/L (15-37); CHLORIDE 95 mmol/L (98-107); CREATININE 1.7 mg/dL (0.6-1.3); GLUCOSE 142 mg/dL (74-106); POTASSIUM 3.8 mmol/L (3.5-5.1); SODIUM SERUM 133 mmol/L (136-145); TOTAL BILIRUBIN 0.5 mg/dL (0.0-1.0); UREA NITROGEN, BLOOD 54 mg/dL (7-18)
[2017-05-05] MEDS ORDERED: ACETAMINOPHEN 650 MG SUPP RC ONE (15:15)
[2017-05-05] MEDS ORDERED: PIPERACILLIN/TAZOBACTAM 3.375 GM in DEXTROSE 5% 50 ML IV ONE (15:20)
[2017-05-05] MEDS ORDERED: LEVOFLOXACIN 500 MG/D5W PREMIX 100 ML IV ONE (15:20)
[2017-05-05 15:32] LABS: APPEARANCE,URINE CLEAR (CLEAR); BILIRUBIN,URINE NEGATIVE (NEGATIVE); BLOOD, URINE 2+ (NEGATIVE); COLOR,URINE YELLOW (YELLOW); LEUKOCYTE ESTERASE ,URINE 3+ (NEGATIVE); NITRITE, URINE POSITIVE (NEGATIVE); UGLUCOSE NEGATIVE (NEGATIVE)
[2017-05-05] MEDS ORDERED: PIPERACILLIN/TAZOBACTAM 3.375 GM VIAL IV ONE (15:36)
[2017-05-05] MEDS ORDERED: DOPamine 400 MG/D5W PREMIX 250 ML IV ONE (15:40)
[2017-05-05 15:41] LABS: RBC,URINE 3-10 (FEW) /HPF (0-5); WBC,URINE 60-80 /HPF (0-5)
--- NOTE | 2017-05-05 16:00 | NUR ---
DAUGHTER AT BEDSIDE. DAUGHTER STATED PT ACTING NEUROLOGICAL AT BASE LINE.
--- NOTE | 2017-05-05 16:32 | NUR ---
Dr. Calle at bedside to evaluate patient.
[2017-05-05] MEDS ORDERED: ONDANSETRON 4 MG/2 ML VIAL IVP PRN (16:40)
[2017-05-05] MEDS ORDERED: ACETAMINOPHEN 325 MG TAB PO PRN (16:40)
[2017-05-05] MEDS ORDERED: HYDROcodone/APAP 5/325 MG 1 TAB TAB PO PRN (16:40)
[2017-05-05] MEDS ORDERED: MORPHINE SULFATE 2 MG/ML SYR IVP PRN (16:40)
[2017-05-05] MEDS ORDERED: DEXTROSE 50% 50 ML SYR IVP PRN (17:00)
--- NOTE | 2017-05-05 17:45 | NUR ---
ADMITTED FROM ER THIS 86 YR OLD FEMALE PER [facility]. BY ER NURSES DUE TO FEVER. UNABLE TO OBTAIN INFO FROM PT. NON VERBAL (TRACH TO VENT). RESPONDS ONLY TO PAINFUL STIMULI. IVS 0.9 NS INFUSING AT 100 ML/HR AND DOPAMINE DRIP ON RT FA IV SITE. INCONTINENT OF LARGE AMT URINE. PERINEAL CARE DONE. UNABLE TO CHECK PUPILS. PT CLOSES THE EYES TIGHTLY WHEN ATTEMPTED TO CHECK HER PUPILS. TRACH TO VENT TV 500, FI02 35%,AC 12/MIN, PEEP 5. NO RESP. DISTRESS NOTED.
--- NOTE | 2017-05-05 17:51 | NUR ---
Patient will be admitted to care of DR DUENAS . Admited to ICU. Will go to room5. Belongings list completed. Report to FAUZIA WILSON.
[2017-05-05] MEDS: ALBUTEROL 0.083% 2.5 MG/3 ML NEBU IH SCH (19:00)
--- NOTE | 2017-05-05 19:00 | NUR ---
REPORT GIVEN TO FAUZIA CAGE.
--- NOTE | 2017-05-05 19:30 | NUR ---
RECEIVED REPORT FROM PASTORA. PT ON BED WITH CLOSED EYES, NON VERBAL, TRACH TO VENT WITH SETTING A/C MODE RATE 12, FIO2 35%, VT 500, PEEP 5. RESPONSIVE TO LIGHT PAIN. PERIPHERAL LINES ON RIGHT FOREARM 22G WITH NS 100ML/HR, DOPAMINE DRIP AND LEFT WRIST 20G NOTED. NO ACUTE DISTRESS NOTED. PT HAS OLD G TUBE SITE ON LEFT UPPER QUADRANT AND NEW G TUBE SITE AT RIGHT UPPER QUADRANT. BILATERAL LUNG SOUND CLEAR AND ACTIVE BOWEL SOUND FROM ALL 4QUADS. WILL CONTINUE TO MONITOR.
[2017-05-05] MEDS: NACL 0.9% 1,000 ML IV SCH (20:00)
[2017-05-05] MEDS: BLOOD GLUCOSE MONITORING 1 DEV DEV FS SCH (20:25)
--- NOTE | 2017-05-05 20:30 | NUR ---
INSERTED HILTON CATH 16FR, CLEAR YELLOW URINE DRAINING. NO BLEEDING NOTED.
[2017-05-05] MEDS: INSULIN LISPRO SLIDING SCALE 100 UNITS/ML VIAL SUBQ PRN (20:42)
[2017-05-05] MEDS: SIMETHICONE 80 MG TAB.CHEW GT SCH (20:43)
[2017-05-05] MEDS: DOCUSATE SODIUM 100 MG GELCAP PO SCH (20:43)
[2017-05-05] MEDS: BISACODYL 10 MG SUPP RC SCH (20:43)
[2017-05-05] MEDS: ARTIFICIAL TEARS OPHTH OINT 3.5 GM TUBE OP SCH (21:00)
--- NOTE | 2017-05-05 21:30 | NUR ---
HOLD ZOSYN 2.25GM AT THIS TIME D/T PT RECEIVED ZOSYN 3.375GM AT ER AT 1546. NEXT DOSE SCHEDULE AT 0000.
[2017-05-05] MEDS ORDERED: PIPERACILLIN/TAZOBACTAM 2.25 GM VIAL IV ONE (21:31)
--- NOTE | 2017-05-05 22:30 | NUR ---
G TUBE FEEDING STARTED DIABETIC SOURCE 50ML/HR, H2O FLUSH 150ML Q6HR. NO ACUTE DISTRESS NOTED.
[2017-05-05] MEDS ORDERED: levETIRAcetam 100 MG/ML ORASYR ONE (22:33)
[2017-05-05] MEDS: levETIRAcetam 100 MG/ML ORASYR GT SCH (22:38)
[2017-05-05] MEDS: PIPERACILLIN/TAZOBACTAM 2.25 GM in DEXTROSE 5% 50 ML IV SCH (23:53)
[2017-05-06] VITALS (107 sets, daily range): BP systolic 63–142; BP diastolic 41–100
--- NOTE | 2017-05-06 00:30 | NUR ---
GIVEN IV ABX, PT TOLERATED WELL. NO ACUTE RESPIRATORY DISTRESS NOTED. PROVIDED ORAL CARE. CONTINUE TO MONITOR.
[2017-05-06] MEDS: ALBUTEROL 0.083% 2.5 MG/3 ML NEBU IH SCH ×4 (01:22→18:49)
--- NOTE | 2017-05-06 02:10 | NUR ---
REMOVED PERIPHERAL LINE ON LEFT WRIST, MINIMAL BLEEDING NOTED, AND INSERTED NEW PERIPHERAL IV LINE ON LEFT FOREARM GAUGE 20 WITH GOOD BLOOD RETURN NOTED. PT IN ASLEEP WITH CALM, NO ACUTE DISTRESS NOTED. CONTINUE TO MONITOR.
[2017-05-06] MEDS: DOPamine 400 MG/D5W PREMIX 250 ML IV SCH ×3 (03:19→23:27)
--- NOTE | 2017-05-06 03:50 | NUR ---
PT IN ASLEEP WITH CALM, VS STABLE WITH DOPAMINE DRIP. NO ACUTE DISTRESS NOTED. CONTINUE TO MONITOR.
--- NOTE | 2017-05-06 05:00 | NUR ---
PT IS IN ASLEEP, RESPONSIVE TO LIGHT PAIN. NO ACUTE DISTRESS NOTED. VS IS STABLE WITH DOPAMINE DRIP. CONTINUE TO MONITOR.
[2017-05-06] MEDS: PIPERACILLIN/TAZOBACTAM 2.25 GM in DEXTROSE 5% 50 ML IV SCH (05:21)
[2017-05-06 06:09] LABS: HEMATOCRIT 36.1 % (36-48); HEMOGLOBIN 11.5 g/dL (12.0-16.0); MEAN CORPUSCULAR HEMOGLOBIN 27 pg (27-31); MEAN CORPUSCULAR HGB CONC 32 g/dL (33-37); MEAN CORPUSCULAR VOLUME 84 fL (80-94); PLATELET COUNT (AUTO) 341 K/uL (140-450); RED BLOOD CELL COUNT(AUTO) 4.33 MIL/uL (4.20-5.40); RED CELL DISTRIBUTION WIDTH 18.4 % (11.6-13.7); WHITE BLOOD COUNT (AUTO) 23.5 K/uL (4.8-10.8)
--- NOTE | 2017-05-06 06:20 | NUR ---
GIVEN IV ABX, TOLERATED WELL. NO ACUTE DISTRESS NOTED. VS STABLE WITH DOPAMINE DRIP. CONTINUE TO MONITOR.
--- NOTE | 2017-05-06 06:25 | NUR ---
PATIENT HAS BEEN SCREENED AND CATEGORIZED HIGH NUTRITION RISK. PATIENT WILL BE SEEN WITHIN 1-2 DAYS OF ADMISSION. 05/05/17-05/06/17 MESFIN MILTON MS, RDN
[2017-05-06 06:43] LABS: EOSINOPHILS % (MANUAL) 1 % (0-4); LYMPHOCYTES % (MANUAL) 3 % (20-46); MONOCYTES % (MANUAL) 3 % (5-12)
[2017-05-06 07:02] LABS: ALBUMIN 2.5 g/dL (3.4-5.0); ANION GAP 13.5 (8-16); ASPARTATE AMINOTRANSFERASE 22 U/L (15-37); CARBON DIOXIDE 25.5 mmol/L (21-32); CHLORIDE 108 mmol/L (98-107); CREATININE 1.3 mg/dL (0.6-1.3); GLUCOSE 298 mg/dL (74-106); MAGNESIUM 2.5 mg/dL (1.8-2.4); PHOSPHORUS 2.4 mg/dL (2.5-4.9); SODIUM SERUM 144 mmol/L (136-145); TOTAL BILIRUBIN 0.3 mg/dL (0.0-1.0); UREA NITROGEN, BLOOD 38 mg/dL (7-18)
--- NOTE | 2017-05-06 07:20 | NUR ---
REPORT GIVEN TO MORNING NURSE LIBRADO. PT'S VS STABLE.
--- NOTE | 2017-05-06 07:25 | NUR ---
RECEIVED TRACH PT WITH SHILEY 6 DCT ON VENT. SETTINGS AC 12, VT 500, PEEP 5 AND FIO2 30%. PT SUCTIONED AND OBTAINED SMALL AMOUNT OF THICK SECRETIONS, AIRWAY IS PATENT AND TRACH IS SECURE. PT IS NOT SOB AND NOT IN RESPIRATORY DISTRESS AT THIS TIME. VENT IS PLUGGED INTO RED OUTLET WITH ALARMS ON AND FUNCTIONING. WILL CONTINUE TO MONITOR.
--- NOTE | 2017-05-06 07:30 | NUR ---
Patient needing suctioning early this morning, and during oral care patient has large amount of emesis. The patient has soft dark tarry stool, and given complete bath, and linens changed. Mendez Ramirez RN
[2017-05-06] MEDS ORDERED: POTASSIUM CHLORIDE 10 MEQ TABER PO SCH (09:00)
[2017-05-06] MEDS ORDERED: VITAMIN D 400 IU TAB GT SCH (09:00)
[2017-05-06] MEDS: DOCUSATE SODIUM 100 MG GELCAP PO SCH ×2 (09:00→20:40)
--- NOTE | 2017-05-06 10:01 | NUR ---
05/06/17 RD INITIAL ASSESSMENT COMPLETED PLEASE REFER TO NUTRITION ASSESSMENT UNDER CARE ACTIVITY FOR ESTIMATED NUTRITIONAL NEEDS. RD RECOMMENDATIONS: 1. WHEN MEDICALLY APPROPRIATE PER MD, RESUME ENTERAL FEEDING. 2. WHEN MEDICALLY APPROPRIATE PER MD, CONSIDER INCREASING ENTERAL FEEDING TO DIABETISOUCE AC AT 70 ML/HR TO PROVIDE 1680 ML, 2016 KCAL, 100.8 GM PROTEIN, 1374 ML FREE WATER. 2. WHEN MEDICALLY APPROPRIATE PER MD, CONSIDER INCREASING WATER FLUSH TO 200 ML Q6H. 3. CONSULT RDN PRN. 4. RD WILL F/U 2-3 DAYS; HIGH RISK. MESFIN MILTON, MS, RDN
--- NOTE | 2017-05-06 10:30 | NUR ---
Patient BS increased, unable to do reading earlier in the morning, and followed up now. Second RN covers insulin coverage per sliding scale per do. Mendez Ramirez RN
[2017-05-06] MEDS: BLOOD GLUCOSE MONITORING 1 DEV DEV FS SCH ×4 (10:33→23:50)
[2017-05-06] MEDS: INSULIN LISPRO SLIDING SCALE 100 UNITS/ML VIAL SUBQ PRN ×3 (10:33→23:53)
[2017-05-06] MEDS ORDERED: POTASSIUM CHLORIDE 20% 40 MEQ/15 ML UDC GT SCH (10:37)
[2017-05-06] MEDS ORDERED: KCL 20 MEQ/WATER INJ PREMIX 200 ML IV ONE (10:40)
--- NOTE | 2017-05-06 10:40 | NUR ---
CALLED DR. DUNEAS NOTIFIED OF PT'S K+3.0, VOMITING AND UPDATED ON PT'S CONDITION. GAVE ORDERS. KEPT NPO EXCEPT MEDS FOR NOW.
[2017-05-06] MEDS: ENOXAPARIN 30 MG/0.3 ML SYR SUBQ SCH (10:42)
[2017-05-06] MEDS ORDERED: METOCLOPRAMIDE 10 MG/2 ML INJ VIAL IVP SCH (10:43)
[2017-05-06] MEDS: METOCLOPRAMIDE 10 MG/2 ML INJ VIAL IVP SCH ×3 (10:45→20:39)
[2017-05-06] MEDS: LEVOTHYROXINE 0.075 MG TAB GT SCH (10:48)
[2017-05-06] MEDS: MULTIVITAMIN 1 TAB PO SCH (10:49)
[2017-05-06] MEDS: LACTOBACILLUS RHAMNOSUS GG 1 EACH CAP GT SCH (10:49)
[2017-05-06] MEDS: SIMETHICONE 80 MG TAB.CHEW GT SCH ×2 (10:50→20:40)
[2017-05-06] MEDS: glipiZIDE 5 MG TAB GT SCH (10:51)
[2017-05-06] MEDS: ARTIFICIAL TEARS OPHTH OINT 3.5 GM TUBE OP SCH ×2 (11:01→21:35)
[2017-05-06] MEDS: levETIRAcetam 100 MG/ML ORASYR GT SCH ×2 (11:02→20:39)
[2017-05-06] MEDS: CHOLECALCIFEROL 1,000 IU TAB PO SCH (11:02)
[2017-05-06] MEDS: ASPIRIN 81 MG TAB.CHEW PO SCH (11:03)
[2017-05-06] MEDS ORDERED: COMMUNICATION ORDER MC ONE (11:20)
[2017-05-06] MEDS ORDERED: POTASSIUM CHLORIDE 40 MEQ, LIDOCAINE 1% 25 MG in NACL 0.9% 250 ML IV SCH (11:30)
--- NOTE | 2017-05-06 11:30 | NUR ---
Patient GT to gravity, and I did hold meds till the charge nurse called the MD for orders due to the patient having vomited earlier. MD updated and orders written. Patient on vent to trach, and settings remain the same. Patient needs frequent suctioning today. Mendez Ramirez RN
--- NOTE | 2017-05-06 12:01 | NUR ---
PT SUCTIONED OBTAINED PALE YELLOW SECRETIONS AIRWAY IS PATENT AND TRACH REMAINS SECURE. PT IS NOT IN ANY DISTRESS AT THIS TIME .WILL CONTINUE TO MONITOR.
[2017-05-06] MEDS: PIPER/TAZO 2.25GM/D5W PREMIX 50 ML IV SCH ×3 (12:33→23:59)
[2017-05-06] MEDS: NACL 0.9% 1,000 ML IV SCH (13:51)
--- NOTE | 2017-05-06 14:13 | NUR ---
PT SUCTIONED OBTAINED SMALL AMOUNT OF THICK SECRETIONS. AIRWAY IS PATENT. NO CHANGES MADE TO VENT AT THIS TIME. WILL CONTINUE TO MONITOR.
--- NOTE | 2017-05-06 16:00 | NUR ---
Patient resting quietly in bed, she has family visiting, and I gave privacy for family to visit. Patient SBP is increased to 140, and dopamine drip decreased from 12 mcg/kg/min to 10 mcg/kg/min. Patient has mittens on to protect from pulling at GT site. Mendez Ramirez RN
--- NOTE | 2017-05-06 17:33 | NUR ---
PT REMAINS ON DOCUMENTED SETTINGS NO CHANGES AT THIS TIME. TRACH IS SECURE WITH A PATENT AIRWAY. VENT ALARMS REMAIN ON AND FUNCTIONING. PT IS NOT IN RESPIRATORY DISTRESS OR SOB AT THIS TIME.
[2017-05-06] MEDS: LEVOFLOXACIN 250 MG/D5 PREMIX 50 ML IV SCH (17:52)
--- NOTE | 2017-05-06 18:00 | NUR ---
Patient BS 259, and Humolog 6 units given per sliding scale per do. Patient remains on dopamine drip @ 10mcg/kg/min. SBP is labile, some readings 130's, then decreases to 90s. Patient GT to gravity with yellowish contents. 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 Mendez Ramirez RN
--- NOTE | 2017-05-06 19:30 | NUR ---
RECEIVED REPORT FROM LIBRADO. PT ON BED WITH CLOSED EYES, NON VERBAL, TRACH TO VENT WITH SETTING A/C MODE RATE 12, FIO2 30%, VT 500, PEEP 5. RESPONSIVE TO LIGHT PAIN. PERIPHERAL LINES ON RIGHT FOREARM 22G WITH NS 40ML/HR, RIGHT UPPER FOREARM 18G WITH DOPAMINE 10MCG/KG/MIN AND LEFT WRIST 20G NOTED. NO ACUTE DISTRESS NOTED. PT HAS OLD G TUBE SITE ON LEFT UPPER QUADRANT AND NEW G TUBE TO GRAVITY YELLOW DRAINAGE FROM THE SITE AT RIGHT UPPER QUADRANT. TUBE FEEDING IS ON HOLD. BILATERAL RHONCHI LUNGS SOUND AND ACTIVE BOWEL SOUND FROM ALL 4QUADS. VS IS STABLE AT THIS TIME. WILL CONTINUE TO MONITOR.
[2017-05-06] MEDS: BISACODYL 10 MG SUPP RC SCH (20:40)
--- NOTE | 2017-05-06 20:56 | NUR ---
DR. DUENAS WAS HERE AT 2039, FAUZIA/FAUZIA GAVE UPDATES ON PATIENT'S CONDITION, DR. DUENAS INSTRUCTED TO RESUME GT FEEDING IN AM. Addendum: 05/06/17 at 2110 by Kala Still RN DR DOHERTY GAVE ORDER ALSO TO CHANGE DSS CAPSULE TO LIQUID.
--- NOTE | 2017-05-06 22:30 | NUR ---
PT CLOSED EYES, RESPONSIVE TO LIGHT STIMULI. VS IS STABLE WITH DOPAMINE DRIP. NO ACUTE DISTRESS NOTED. CONTINUE TO MONITOR.
[2017-05-07] VITALS (107 sets, daily range): BP systolic 67–139; BP diastolic 37–78
--- NOTE | 2017-05-07 00:30 | NUR ---
PT CLOSED EYES, NON VERBAL, UNABLE TO FOLLOW COMMANDS. DOPAMINE TITRATED DOWN TO 8MCG/KG/MIN, 19.86ML/HR AT @2345. PT'S BP IS IN NORMAL. BS CHECKED 186, GIVEN 2 UNITS OF INSULIN LISPRO. GIVEN IV ABX, TOLERATED WELL. NO ACUTE DISTRESS NOTED. CONTINUE TO MONITOR.
[2017-05-07] MEDS: ALBUTEROL 0.083% 2.5 MG/3 ML NEBU IH SCH ×4 (01:21→18:41)
--- NOTE | 2017-05-07 02:30 | NUR ---
PT IN ASLEEP, RESPONSIVE TO LIGHT PAIN. DOPAMINE DRIP TITRATED DOWN TO 6MCG/KG/MIN AT 0200, TOLERATED WELL. VS STABLE AND WITHIN NORMAL. NO ACUTE DISTRESS NOTED. WILL CONTINUE TO MONITOR.
--- NOTE | 2017-05-07 03:30 | NUR ---
PT IN ASLEEP, RESPONSIVE TO LIGHT PAIN. NO ACUTE DISTRESS NOTED. DOPAMINE TITRATED DOWN TO 5MCG/KG/MIN. TOLERATED WELL. CONTINUE TO MONITOR.
[2017-05-07] MEDS: METOCLOPRAMIDE 10 MG/2 ML INJ VIAL IVP SCH ×3 (04:23→20:23)
[2017-05-07 04:47] LABS: BASOPHILS # (AUTO) 0.1 K/uL (0.00-0.22); BASOPHILS % (AUTO) 0.9 % (0.0-2.0); EOSINOPHILS # (AUTO) 0.2 K/uL (0-0.4); EOSINOPHILS % (AUTO) 1.3 % (0.0-4.0); HEMATOCRIT 30.7 % (36-48); LYMPHOCYTES # (AUTO) 1.7 K/uL (2.5-16.5); LYMPHOCYTES % (AUTO) 12.6 % (20.5-51.1); MEAN CORPUSCULAR HEMOGLOBIN 27 pg (27-31); MEAN CORPUSCULAR HGB CONC 33 g/dL (33-37); MEAN CORPUSCULAR VOLUME 84 fL (80-94); MONOCYTES # (AUTO) 0.5 K/uL (0.8-1.0); MONOCYTES % (AUTO) 3.9 % (1.7-9.3); NEUTROPHILS # (AUTO) 11.4 K/uL (1.8-7.7); NEUTROPHILS % (AUTO) 81.3 % (42.2-75.2); PLATELET COUNT (AUTO) 304 K/uL (140-450); RED BLOOD CELL COUNT(AUTO) 3.68 MIL/uL (4.20-5.40); RED CELL DISTRIBUTION WIDTH 19.2 % (11.6-13.7)
[2017-05-07 05:18] LABS: ANION GAP 13.3 (8-16); CHLORIDE 113 mmol/L (98-107); GLUCOSE 207 mg/dL (74-106); POTASSIUM 3.3 mmol/L (3.5-5.1); SODIUM SERUM 148 mmol/L (136-145); UREA NITROGEN, BLOOD 21 mg/dL (7-18)
[2017-05-07] MEDS: PIPER/TAZO 2.25GM/D5W PREMIX 50 ML IV SCH ×4 (05:26→23:43)
[2017-05-07] MEDS: BLOOD GLUCOSE MONITORING 1 DEV DEV FS SCH ×4 (05:32→23:47)
[2017-05-07] MEDS: INSULIN LISPRO SLIDING SCALE 100 UNITS/ML VIAL SUBQ PRN ×4 (05:36→23:47)
--- NOTE | 2017-05-07 05:40 | NUR ---
PT IS IN ASLEEP, RESPONSIVE TO LIGHT PAIN. DOPAMINE DRIP TITRATED UP TO 6MCG/KG/MIN D/T PT'S SBP GOING DOWN. NO ACUTE DISTRESS NOTED. GIVEN IV ABX, TOLERATED WELL. WILL CONTINUE TO MONITOR.
--- NOTE | 2017-05-07 06:40 | NUR ---
PT IS IN ASLEEP, RESPONSIVE TO LIGHT PAIN. NO ACUTE DISTRESS NOTED. VS WITHIN NORMAL. WILL CONTINUE TO MONITOR.
[2017-05-07 06:41] LABS: WHITE BLOOD COUNT (AUTO) 13.9 K/uL (4.8-10.8)
--- NOTE | 2017-05-07 06:57 | NUR ---
RECEIVED TRACH PT WITH SHILEY 6 DCT ON VENT. SETTINGS AC 12, VT 500, PEEP 5 AND FIO2 30%. PT SUCTIONED AND OBTAINED SMALL AMOUNT OF THICK WHITE SECRETIONS, AIRWAY IS PATENT AND TRACH IS SECURE. PT IS NOT SOB AND NOT IN RESPIRATORY DISTRESS AT THIS TIME. VENT IS PLUGGED INTO RED OUTLET WITH ALARMS ON AND FUNCTIONING. WILL CONTINUE TO MONITOR.
--- NOTE | 2017-05-07 07:05 | NUR ---
REPORT GIVEN TO LIBRADO. PT VS STABLE.
--- NOTE | 2017-05-07 07:30 | NUR ---
Received report, and resumed care. Patient in bed with eyes closed during med administration. Patient remains NPO. Continues receiving IV antibiotics around the clock. Mendez Ramirez RN
[2017-05-07] MEDS ORDERED: POTASSIUM CHLORIDE 20% 40 MEQ/15 ML UDC GT SCH ×2 (08:05→13:10)
--- NOTE | 2017-05-07 09:00 | NUR ---
Patient receiving all her PO meds ths morning, and patient started on GT feeding Diabetiasource at 50 ml per hour. HOB elevated greater than 30 degrees, aspiration precautions. Mendez Ramirez RN
[2017-05-07] MEDS: LACTOBACILLUS RHAMNOSUS GG 1 EACH CAP GT SCH (09:32)
[2017-05-07] MEDS: MULTIVITAMIN 1 TAB PO SCH (09:33)
[2017-05-07] MEDS: DOCUSATE 100 MG/10 ML UDC GT SCH ×2 (09:33→20:31)
[2017-05-07] MEDS: CHOLECALCIFEROL 1,000 IU TAB PO SCH (09:34)
[2017-05-07] MEDS: ASPIRIN 81 MG TAB.CHEW PO SCH (09:34)
[2017-05-07] MEDS: LEVOTHYROXINE 0.075 MG TAB GT SCH (09:34)
[2017-05-07] MEDS: glipiZIDE 5 MG TAB GT SCH (09:35)
[2017-05-07] MEDS: levETIRAcetam 100 MG/ML ORASYR GT SCH ×2 (09:36→20:32)
[2017-05-07] MEDS: POLYETHYLENE GLYCOL 17 GM/PKT GT SCH (09:39)
[2017-05-07] MEDS: SIMETHICONE 80 MG TAB.CHEW GT SCH ×2 (09:39→20:33)
[2017-05-07] MEDS: POTASSIUM CHLORIDE 20% 40 MEQ/15 ML UDC GT SCH (09:42)
[2017-05-07] MEDS: ARTIFICIAL TEARS OPHTH OINT 3.5 GM TUBE OP SCH ×2 (09:43→20:32)
[2017-05-07] MEDS: ENOXAPARIN 30 MG/0.3 ML SYR SUBQ SCH (09:47)
[2017-05-07] MEDS: PANTOPRAZOLE 40 MG INJ VIAL IVP SCH (09:50)
--- NOTE | 2017-05-07 11:41 | NUR ---
PT IS ASLEEP IN BED AT THIS TIME. TOLERATING VENT SETTINGS WELL AT THIS TIME. PT NOT SOB AND NOT IN RESPIRATORY DISTRESS. WILL CONTINUE TO MONITOR.
--- NOTE | 2017-05-07 12:30 | NUR ---
Patient BS 233, and patient received Humalog insulin 4 units per sliding scale per do. Patient family, daughter at bedside, and I updated and gave family privacy to visit. Repositioned to comfort. Mendez Ramirez RN
--- NOTE | 2017-05-07 12:37 | NUR ---
ZACH NOTE INITIAL REVIEW FAXED TO [facility] [phone] OCT[place] PH# [phone] IBIS [phone] PER [facility]IP OF [facility] [place] PH# [phone], PATIENT IS FROM THEIR SUBACUTE UNIT AND IS ON A 7 DAY BED HOLD
--- NOTE | 2017-05-07 14:00 | NUR ---
Dr Calle visits patient, updated on present condition, and patient meds IV antibiotics to be changed, and orders written. Mendez Ramirez RN
[2017-05-07] MEDS ORDERED: MEROPENEM 1,000 MG in NACL 0.9% 100 ML IV SCH ×2 (14:43→21:00)
--- NOTE | 2017-05-07 16:29 | NUR ---
RECEIVED REPORT FROM Mendez Ramirez RN AND RESUMED CARE.
[2017-05-07] MEDS: NACL 0.9% 1,000 ML IV SCH ×2 (16:38→23:41)
[2017-05-07] MEDS: NITROFURANTOIN 100 MG CAP GT SCH (17:17)
--- NOTE | 2017-05-07 17:17 | NUR ---
PT REMAINS ON DOCUMENTED SETTINGS NO CHANGES MADE. PT NOT DEMONSTRATING ANY SIGNS/SYMPTOMS OF RESPIRATORY DISTRESS. VENT ALARMS REMAIN ON AND FUNCTIONING. TRACH REMAINS SECURE WITH A PATENT AIRWAY.
--- NOTE | 2017-05-07 18:00 | NUR ---
CLEANED PT, ORAL CARE, PT UNRESPONSIVE TO NAME STIMULI. NO S/S OF RESPIRATORY DISTRESS NOTED.
[2017-05-07] MEDS: LEVOFLOXACIN 250 MG/D5 PREMIX 50 ML IV SCH (18:09)
[2017-05-07] MEDS: DOPamine 400 MG/D5W PREMIX 250 ML IV SCH (18:16)
--- NOTE | 2017-05-07 18:50 | NUR ---
RECEIVED PT STABLE ON VENT SUPPORT AT DOCUMENTED SETTINGS, SXN'D SMALL AMOUNTS OF BROWN THICK SECRETIONS, HHN TX GIVEN, TOLERATED WELL, NO RESP DISTRESS OR SOB NOTED AT THIS TIME, SHILEY 6 CUFFED TRACH SECURED/MIDLINE/PATENT, ALARMS SET AND AUDIBLE, AMBU BAG AT BEDSIDE, VENT PLUGGED INTO RED OUTLET, WILL CONT TO MONITOR.
--- NOTE | 2017-05-07 19:10 | NUR ---
REPORT GIVEN TO LIGHTING TECHNICIAN RN.
--- NOTE | 2017-05-07 19:15 | NUR ---
RECEIVED REPORT FROM FAUZIA FLOREZ. VS STABLE. SINUS RHYTHM ON MONITOR. PT AFEBRILE. NONVERBAL. OPENS EYES OCASSIONALLY, NON-PURPOSEFUL. TRACH TO VENT. SETTINGS AC 12, FIO2 30, TV 500, AND PEEP 5. LUNG SOUNDS CLEAR. ACTIVE BOWEL SOUNDS FROM ALL QUADRANT. GTUBE ON RIGHT UPPER QUADRANT OF ABDOMEN TO FEEDING DIABETISOURCE AT 50ML/HR WITH H2O FLUSH AT 150ML Q6H. NOTED WITH 90ML RESIDUAL. OLD GTUBE SITE ON LEFT UPPER QUADRANT DRAINING CLEAR, YELLOW SCANT LIQUID. S1+S2 HEARD WITHOUT ANY ABNORMAL HEART SOUND. IV SITES TO RIGHT FOREARM 22G, RIGHT HAND 20G, AND L FOREARM 20G. IV LINES ARE PATENT AND ASYMPTOMATIC. PT ON DOPAMINE DRIP AT 5MCG/KG/MIN. HILTON CATHETER IN PLACE. DRAINING CLEAR, YELLOW URINE. PULSES PALPABLE IN ALL EXTREMITIES. BED AT LOW POSITION. CALL LIGHT WITHIN REACH. HOB AT 30 DEGREES. ALL SAFETY PRECAUTIONS IN PLACE. WILL CONTINUE TO MONITOR PT.
[2017-05-07] MEDS: MEROPENEM 1,000 MG in NACL 0.9% 100 ML IV SCH (20:23)
--- NOTE | 2017-05-07 20:30 | NUR ---
SCHEDULED MEDICATIONS ADMINISTERED. PATIENT TOLERATED WELL. NO SIGNS OF DISTRESS NOTED. CALL LIGHT WITHIN REACH. ALL SAFETY PRECAUTION IN PLACE. WILL CONTINUE TO MONITOR PT.
[2017-05-07] MEDS: BISACODYL 10 MG SUPP RC SCH (20:31)
--- NOTE | 2017-05-07 21:40 | NUR ---
DOPAMINE DRIP DECREASED. VS CURRENTLY STABLE AT THIS TIME. NO SIGNS OF DISTRESS NOTED. PT EYES ARE CLOSED. ALL PERIPHERAL IV SITES PATENT AND ASYMPTOMATIC. WILL CONTINUE TO MONITOR PT.
--- NOTE | 2017-05-07 23:50 | NUR ---
SCHEDULED MEDICATIONS ADMINISTERED. PT TOLERATING IV ANTIBIOTIC WELL. NO ADVERSE SIDE EFFECT NOTED AT THIS TIME. IV LINES PATENT AND ASYMPTOMATIC. WILL CONTINUE TO MONITOR. NO SIGNS OF DISTRESS NOTED. VS STABLE AT THIS TIME. ALL SAFETY PRECAUTIONS IN PLACE.
[2017-05-08] VITALS (107 sets, daily range): BP systolic 75–141; BP diastolic 24–76
[2017-05-08] MEDS: ALBUTEROL 0.083% 2.5 MG/3 ML NEBU IH SCH ×4 (01:03→18:57)
--- NOTE | 2017-05-08 01:51 | NUR ---
CONTINUING WITH DOPAMINE DRIP. NO ACUTE DISTRESS NOTED. WILL CONTINUE TO MONITOR.
[2017-05-08] MEDS: MEROPENEM 1,000 MG in NACL 0.9% 100 ML IV SCH ×3 (04:26→20:21)
[2017-05-08] MEDS: METOCLOPRAMIDE 10 MG/2 ML INJ VIAL IVP SCH ×3 (04:26→20:19)
[2017-05-08 04:49] LABS: BASOPHILS # (AUTO) 0.1 K/uL (0.00-0.22); BASOPHILS % (AUTO) 0.9 % (0.0-2.0); EOSINOPHILS # (AUTO) 0.4 K/uL (0-0.4); EOSINOPHILS % (AUTO) 4.1 % (0.0-4.0); HEMATOCRIT 29.9 % (36-48); HEMOGLOBIN 9.6 g/dL (12.0-16.0); LYMPHOCYTES # (AUTO) 1.9 K/uL (2.5-16.5); LYMPHOCYTES % (AUTO) 18.2 % (20.5-51.1); MEAN CORPUSCULAR HEMOGLOBIN 27 pg (27-31); MEAN CORPUSCULAR HGB CONC 32 g/dL (33-37); MEAN CORPUSCULAR VOLUME 84 fL (80-94); MONOCYTES # (AUTO) 0.5 K/uL (0.8-1.0); MONOCYTES % (AUTO) 4.9 % (1.7-9.3); NEUTROPHILS # (AUTO) 7.8 K/uL (1.8-7.7); NEUTROPHILS % (AUTO) 71.9 % (42.2-75.2); PLATELET COUNT (AUTO) 306 K/uL (140-450); RED BLOOD CELL COUNT(AUTO) 3.56 MIL/uL (4.20-5.40); RED CELL DISTRIBUTION WIDTH 19.8 % (11.6-13.7); WHITE BLOOD COUNT (AUTO) 10.7 K/uL (4.8-10.8)
[2017-05-08 05:02] LABS: ANION GAP 11.4 (8-16); CARBON DIOXIDE 25.7 mmol/L (21-32); CHLORIDE 114 mmol/L (98-107); GLUCOSE 216 mg/dL (74-106); POTASSIUM 4.1 mmol/L (3.5-5.1); SODIUM SERUM 147 mmol/L (136-145); UREA NITROGEN, BLOOD 19 mg/dL (7-18)
--- NOTE | 2017-05-08 05:30 | NUR ---
BED BATH PROVIDED, LINENS CHANGED. PT HAD 1 SMALL BM THAT IS PASTE-LIKE IN TEXTURE AND DARK GREEN IN COLOR. HILTON CARE PROVIDED. TOLERATED BEING TURNED AND REPOSITIONED FAIRLY. NO SIGNS OF DISTRESS NOTED. ALL SAFETY PRECAUTIONS ARE IN PLACE. HOB AT 30 DEGREES. CALL LIGHT WITHIN REACH. WILL CONTINUE TO MONITOR.
[2017-05-08] MEDS: INSULIN LISPRO SLIDING SCALE 100 UNITS/ML VIAL SUBQ PRN ×4 (05:56→23:50)
[2017-05-08] MEDS: PIPER/TAZO 2.25GM/D5W PREMIX 50 ML IV SCH ×2 (05:56→12:09)
[2017-05-08] MEDS: BLOOD GLUCOSE MONITORING 1 DEV DEV FS SCH ×4 (05:58→23:46)
--- NOTE | 2017-05-08 06:05 | NUR ---
MEDICATIONS ADMINISTERED. PT HILTON CATHETER EMPTIED. NO CHANGE IN VITALS. NO CHANGE IN CONDITION AT THIS TIME. WILL CONTINUE TO MONITOR PT.
--- NOTE | 2017-05-08 06:40 | NUR ---
RECEIVED PT ON [place] ON A/C12 VT500 PEEP5 FIO2 30 ALARMS ARE ON AND FUNCTIONAL BMV HOB PTS TRACH SHILEY DCT 6 IS SECURE I\L SX SCANT YELLOW PT IN HF ASLEEP HHN GIVEN I\L WITH 2.5MG ALBUTEROL NO APPARENT DISTRESS VENT PLUGGED INTO RED OUTLETCUFF PRESSURE IS 28 CM H20
--- NOTE | 2017-05-08 07:15 | NUR ---
REPORT GIVEN TO FAUZIA LOTT FOR CONTINUITY OF CARE. VS STABLE AT THIS TIME
--- NOTE | 2017-05-08 07:30 | NUR ---
RECEIVED REPORT FROM WIDE AREA NETWORK ENGINEER RN. PT IS NONVERBAL, EYES CLOSED, DOES NOT FOLLOW COMMANDS. FLACC 0. AFEBRILE. SINUS RHYTHM ON MONITOR. TRACH TO VENT: AC 12, FIO2 30%, VT 500, PEEP 5. BILATERAL LUNGS CLEAR UPON AUSCULTATION. G-TUBE IN PLACE, RECEIVING DIABETISOURCE AT 50 ML/HR WITH H2O FLUSH AT 150 ML Q6H. 40 ML RESIDUALS NOTED. BOWEL SOUNDS PRESENT X 4 QUADRANTS. PERIPHERAL IVS G22 TO RIGHT FOREARM AND G20 TO RIGHT HAND PATENT AND INTACT, RECEIVING NS AT 40 ML/HR AND DOPAMINE DRIP AT 4 MCG/KG/MIN. VS STABLE. HILTON CATH IN PLACE DRAINING URINE TO GRAVITY DRAINAGE BAG. SKIN WARM TO TOUCH. HOB 30 DEGREES. BED IN LOW POSITION AND CALL LIGHT WITHIN REACH. WILL CONTINUE TO MONITOR.
[2017-05-08] MEDS: NITROFURANTOIN 100 MG CAP GT SCH ×2 (07:53→17:11)
--- NOTE | 2017-05-08 08:42 | NUR ---
VENT CHECK BS CLEAR AIRWAY IS PATENT
[2017-05-08] MEDS: ASPIRIN 81 MG TAB.CHEW PO SCH (09:08)
[2017-05-08] MEDS: DOCUSATE 100 MG/10 ML UDC GT SCH ×2 (09:08→20:19)
[2017-05-08] MEDS: LEVOTHYROXINE 0.075 MG TAB GT SCH (09:08)
[2017-05-08] MEDS: PANTOPRAZOLE 40 MG INJ VIAL IVP SCH (09:08)
[2017-05-08] MEDS: LACTOBACILLUS RHAMNOSUS GG 1 EACH CAP GT SCH (09:08)
[2017-05-08] MEDS: glipiZIDE 5 MG TAB GT SCH (09:09)
[2017-05-08] MEDS: MULTIVITAMIN 1 TAB PO SCH (09:09)
[2017-05-08] MEDS: SIMETHICONE 80 MG TAB.CHEW GT SCH ×2 (09:09→20:19)
[2017-05-08] MEDS: ARTIFICIAL TEARS OPHTH OINT 3.5 GM TUBE OP SCH ×2 (09:09→20:39)
[2017-05-08] MEDS: POTASSIUM CHLORIDE 20% 40 MEQ/15 ML UDC GT SCH (09:10)
[2017-05-08] MEDS: levETIRAcetam 100 MG/ML ORASYR GT SCH ×2 (09:10→20:20)
[2017-05-08] MEDS: ENOXAPARIN 30 MG/0.3 ML SYR SUBQ SCH (09:11)
[2017-05-08] MEDS: CHOLECALCIFEROL 1,000 IU TAB PO SCH (09:12)
--- NOTE | 2017-05-08 09:47 | NUR ---
MEDICATIONS ADMINISTERED. PT TOLERATED WELL.
--- NOTE | 2017-05-08 10:49 | NUR ---
VENT CHECK BS CLEAR I\L LAVAGE AND SX SCANT CLEAR
--- NOTE | 2017-05-08 11:30 | NUR ---
DAUGHTER AT BEDSIDE AND WAS UPDATED ON PT.
--- NOTE | 2017-05-08 11:37 | NUR ---
CM NOTE CONCURRENT REVIEW FAXED TO [facility] [phone] [place] PH# [phone] IBIS [phone] FAXED MICROBIOLOGY RESULTS TO [facility] [place] [phone] ATTN: CHIP PH# [phone]
--- NOTE | 2017-05-08 12:10 | NUR ---
PAGED DR. NEUMANN, ON-CALL FOR DR. MURILLO, TO REPORT GASTRIC CULTURE RESULT. AWAITING CALL BACK.
--- NOTE | 2017-05-08 13:26 | NUR ---
VENT CHECK BS CLEAR I\L LAVAGE AND SX SCANT CLEAR HHN GIVEN I\L WITH 2.5MG ALBUTEROL
--- NOTE | 2017-05-08 13:30 | NUR ---
PT IS RESTING COMFORTABLY. NO SOB OR OTHER SIGNS OF ACUTE DISTRESS. VSS. FLACC 0. SAFETY PRECAUTIONS IN PLACE. WILL CONTINUE TO MONITOR.
--- NOTE | 2017-05-08 15:09 | NUR ---
PT'S SON AT BEDSIDE AND WAS UPDATED ON PT. PT IS STABLE. NO SIGNS OF ACUTE DISTRESS AT THIS TIME.
--- NOTE | 2017-05-08 15:26 | NUR ---
VENT CHECK BS CLEAR AIRWAY IS PATENT VISITOR BEDSIDE
--- NOTE | 2017-05-08 16:46 | NUR ---
CONTINUING WITH DOPAMINE DRIP. NO ACUTE DISTRESS NOTED AT THIS TIME. VISITOR AT BEDSIDE. WILL CONTINUE TO MONITOR.
--- NOTE | 2017-05-08 17:00 | NUR ---
CURRENT BP 104/59. DR. DUENAS MADE AWARE THAT BP AT 16:45 WAS 86/50. PER DR. DUENAS, KEEP CURRENT DOPAMINE DOSE. PT STABLE AND RESTING COMFORTABLY. NO S/SX OF ACUTE DISTRESS AT THIS TIME.
--- NOTE | 2017-05-08 17:00 | NUR ---
DR. DUENAS IN TO SEE PT. WILL FOLLOW UP WITH NEW ORDERS.
--- NOTE | 2017-05-08 17:19 | NUR ---
VENT CHECK BS RHONCI I\L LAVAGE AND SX MOD YELLOW
--- NOTE | 2017-05-08 18:28 | NUR ---
NO CHANGE OF CONDITION AT THIS TIME. VS STABLE. FLACC 0. NO ACUTE DISTRESS NOTED. SAFETY PRECAUTIONS IN PLACE. WILL CONTINUE TO MONITOR.
--- NOTE | 2017-05-08 19:17 | NUR ---
REPORT GIVEN TO BLACKJACK SUPERVISOR NURSES FOR CONTINUITY OF CARE. PT IS IN STABLE CONDITION.
--- NOTE | 2017-05-08 19:20 | NUR ---
RECEIVED REPORT FROM KAYLIE. FAUZIA. PT AWAKE, OPENS EYES, NON VERBAL, UNABLE TO FOLLOW COMMANDS. TRACH TO VENT WITH VENT SETTING A/C RATED 16, FIO2 28%, VT 550, PEEP 5. CENTRAL LINE ON LEFT IJ X3 LUMENS. ALL PATENT AND ASYMPTOMATIC.BILATERAL CLEAR LUNG SOUND. POSITIVE BOWEL SOUND FROM Addendum: 05/08/17 at 1938 by Jordin Lynch RN CONTINUE TO CHART FROM PREVIOUS CHARTING ALL 4 QUARDS. G TUBE CONNECTED TO COLLECTION BAG VIA GRAVITY, GREENISH OLIVE COLOR DRAINING. LARGE ROUND HERNIA NOTED ON THE RIGHT UPPER ABDOMEN. HILTON CATH IN PLACE, CLEAR YELLOW URINE DRAINING NOTED. PEDAL PULSE PALPATED NOTED. CALL LIGHT WITHIN THE REACH, HOB ELEVATED TO 30 DEGREE, BED IN LOW POSITION. WILL CONTINUE TO MONITOR. Addendum: 05/08/17 at 1958 by Jordin Lynch RN DISREGARD WRONG PATIENT.
--- NOTE | 2017-05-08 19:30 | NUR ---
RECEIVED REPORT FROM KAYLIE.RN. PT ON BED WITH CLOSED EYES, NON VERBAL,RESPONSIVE TO LIGHT PAIN. TRACH TO VENT WITH SETTING A/C MODE RATE 12, FIO2 30%, VT 500, PEEP 5. PERIPHERAL LINES ON RIGHT FOREARM 22G, RIGHT UPPER FOREARM 18G WITH DOPAMINE 3MCG/KG/MIN. NO ACUTE DISTRESS NOTED. PT HAS OLD G TUBE SITE ON LEFT UPPER QUADRANT, MINIMAL AMOUNT OF CLEAR YELLOW GASTRIC DRAINAGE FROM OLD S TUBE STOMA AND NEW G TUBE SITE TO FEEDING. BILATERAL CLEAR LUNGS SOUND AND ACTIVE BOWEL SOUND FROM ALL 4QUADS.HILTON CATH IN PLACE DRAINING CLEAR YELLOW URINE NOTED. BILATERAL PEDAL PULSE PALPATED. HOB ELEVATED, BED IN LOW POSITION, CALL LIGHT WITHIN REACH. CONTINUE TO MONITOR.
[2017-05-08] MEDS: BISACODYL 10 MG SUPP RC SCH (20:19)
--- NOTE | 2017-05-08 21:00 | NUR ---
GIVEN SCHEDULED MEDICATIONS ORDERED. DECREASED DOPAMINE DRIP TO 2MCG/KG/MIN, 4.77ML/HR AT 2034, TOLERATED WELL. VS STABLE AT THIS TIME. NO ACUTE DISTRESS NOTED.
--- NOTE | 2017-05-08 22:40 | NUR ---
PT CLOSED EYES, RESPONSIVE TO LIGHT PAIN. VS IS STABLE WITH DOPAMINE DRIP. NO ACUTE DISTRESS NOTED. CONTINUE TO MONITOR.
--- NOTE | 2017-05-08 23:25 | NUR ---
INCREASED DOPAMINE DRIP TO 3MCG/KG/MIN D/T BP 87/51. WILL CONTINUE TO MONITOR.
[2017-05-09] VITALS (95 sets, daily range): BP systolic 89–151; BP diastolic 46–85
--- NOTE | 2017-05-09 00:30 | NUR ---
BS CHECKED, 156 NOTED, GIVEN 2 UNITS OF INSULIN LISPRO. NO ACUTE DISTRESS NOTED. WILL CONTINUE TO MONITOR.
[2017-05-09] MEDS: ALBUTEROL 0.083% 2.5 MG/3 ML NEBU IH SCH ×4 (01:12→19:24)
--- NOTE | 2017-05-09 02:30 | NUR ---
PT IS IN ASLEEP, RESPONSIVE TO LIGHT PAIN. NO ACUTE DISTRESS. SINUS BRADYCARDIA IN THE CABLE SPLICER ASSISTANT. WILL CONTINUE TO MONITOR.
[2017-05-09] MEDS: DOPamine 400 MG/D5W PREMIX 250 ML IV SCH (02:48)
[2017-05-09] MEDS: NACL 0.9% 1,000 ML IV SCH (02:50)
--- NOTE | 2017-05-09 04:00 | NUR ---
PT IN ASLEEP, RESPONSIVE TO LIGHT PAIN. PROVIDED ORAL CARE. CONTINUING DOPAMINE DRIP. NO ACUTE DISTRESS NOTED. WILL CONTINUE TO MONITOR.
[2017-05-09] MEDS: METOCLOPRAMIDE 10 MG/2 ML INJ VIAL IVP SCH ×3 (04:09→20:55)
[2017-05-09] MEDS: MEROPENEM 1,000 MG in NACL 0.9% 100 ML IV SCH ×3 (04:10→20:57)
[2017-05-09 04:45] LABS: BASOPHILS # (AUTO) 0.2 K/uL (0.00-0.22); EOSINOPHILS # (AUTO) 0.6 K/uL (0-0.4); EOSINOPHILS % (AUTO) 6.7 % (0.0-4.0); HEMATOCRIT 29.7 % (36-48); HEMOGLOBIN 9.3 g/dL (12.0-16.0); LYMPHOCYTES # (AUTO) 2.2 K/uL (2.5-16.5); LYMPHOCYTES % (AUTO) 22.7 % (20.5-51.1); MEAN CORPUSCULAR HEMOGLOBIN 26 pg (27-31); MEAN CORPUSCULAR HGB CONC 31 g/dL (33-37); MEAN CORPUSCULAR VOLUME 84 fL (80-94); MONOCYTES # (AUTO) 0.5 K/uL (0.8-1.0); MONOCYTES % (AUTO) 5.5 % (1.7-9.3); NEUTROPHILS # (AUTO) 6.2 K/uL (1.8-7.7); NEUTROPHILS % (AUTO) 63.1 % (42.2-75.2); PLATELET COUNT (AUTO) 301 K/uL (140-450); RED BLOOD CELL COUNT(AUTO) 3.53 MIL/uL (4.20-5.40); RED CELL DISTRIBUTION WIDTH 19.5 % (11.6-13.7); WHITE BLOOD COUNT (AUTO) 9.7 K/uL (4.8-10.8)
[2017-05-09 05:18] LABS: ANION GAP 9.5 (8-16); CARBON DIOXIDE 27.2 mmol/L (21-32); CHLORIDE 111 mmol/L (98-107); CREATININE 0.9 mg/dL (0.6-1.3); GLUCOSE 200 mg/dL (74-106); POTASSIUM 3.7 mmol/L (3.5-5.1); SODIUM SERUM 144 mmol/L (136-145); UREA NITROGEN, BLOOD 19 mg/dL (7-18)
--- NOTE | 2017-05-09 05:30 | NUR ---
ADMINISTERED MEDICATION ORDERED, TOLERATED WELL. NO ACUTE DISTRESS.
[2017-05-09] MEDS: BLOOD GLUCOSE MONITORING 1 DEV DEV FS SCH ×3 (06:00→18:09)
--- NOTE | 2017-05-09 06:00 | NUR ---
BS CHECKED 186, GIVEN INSULIN LISPRO 2UNITS. NO ACUTE DISTRESS NOTED.
[2017-05-09] MEDS: INSULIN LISPRO SLIDING SCALE 100 UNITS/ML VIAL SUBQ PRN ×3 (06:01→18:02)
--- NOTE | 2017-05-09 06:56 | NUR ---
RCV'D PT TRACHED WITH SHILEY 6 AND ON VENTILATOR WITH SETTINGS AC 12,500,30%,+5. TRACH IS IN PLACE AND SECURED. VENT IS CONNECTED TO RED OUTLET ALARMS ARE AUDIBLE. AMBU BAG AT BEDSIDE. HHN TX GIVEN. NO SOB OR DISTRESS NOTED. WILL CONTINUE TO MONITOR.
--- NOTE | 2017-05-09 07:25 | NUR ---
PT ON DOPAMIN DRIP AT 3 MCG/KG/MIN. WILL CONTINUE TO MONITOR.
--- NOTE | 2017-05-09 07:25 | NUR ---
GIVEN REPORT TO ASHLEY.FAUZIA, DONAVON.
--- NOTE | 2017-05-09 07:25 | NUR ---
RECEIVED REPORT FROM NOC SHIFT RN. PT SLEEPING IN BED. NO ACUTE DISTRESS. SB ON MONITOR. PT ON TRACH TO VENT WITH SETTING AC/VCFIO2 30% TV 500 RR 20 PEEP 5. LUNGS SOUND CLEAR ON AUSCULTATION. SKIN DRY AND WARM TO TOUCH. PERIPHERAL LINE ON LRIGHT AND LEFT ARM. RT FOREARM 22 G, RT HAND 20G, LEFT HAND 20G. NS RUNNING AT 40 ML/HR. GTUGE TO TUBE FEEDING DIABETISOURCE VIA FEEDING PUMP. ABDOMEN ROUND, SOFT AND NON-TENDER. BOWEL SOUND PRESENT ON ALL FOUR QUADRANTS. FOLEYS CATH IN PLACE. CALL LIGHT WITHIN REACH. BED IN LOW POSITION LOCKED. WILL CONTINUE TO MONITOR.
[2017-05-09] MEDS: NITROFURANTOIN 100 MG CAP GT SCH ×2 (08:24→17:32)
[2017-05-09] MEDS: LACTOBACILLUS RHAMNOSUS GG 1 EACH CAP GT SCH (08:24)
[2017-05-09] MEDS: MULTIVITAMIN 1 TAB PO SCH (08:24)
[2017-05-09] MEDS: glipiZIDE 5 MG TAB GT SCH (08:25)
[2017-05-09] MEDS: LEVOTHYROXINE 0.075 MG TAB GT SCH (08:25)
[2017-05-09] MEDS: SIMETHICONE 80 MG TAB.CHEW GT SCH ×2 (08:25→20:55)
[2017-05-09] MEDS: CHOLECALCIFEROL 1,000 IU TAB PO SCH (08:25)
[2017-05-09] MEDS: ASPIRIN 81 MG TAB.CHEW PO SCH (08:25)
[2017-05-09] MEDS: ARTIFICIAL TEARS OPHTH OINT 3.5 GM TUBE OP SCH ×2 (08:26→20:56)
[2017-05-09] MEDS: PANTOPRAZOLE 40 MG INJ VIAL IVP SCH (08:27)
[2017-05-09] MEDS: POLYETHYLENE GLYCOL 17 GM/PKT GT SCH (08:28)
[2017-05-09] MEDS: POTASSIUM CHLORIDE 20% 40 MEQ/15 ML UDC GT SCH (08:28)
[2017-05-09] MEDS: DOCUSATE 100 MG/10 ML UDC GT SCH ×2 (08:28→20:55)
[2017-05-09] MEDS: ENOXAPARIN 30 MG/0.3 ML SYR SUBQ SCH (08:29)
[2017-05-09] MEDS: levETIRAcetam 100 MG/ML ORASYR GT SCH ×2 (08:29→20:55)
--- NOTE | 2017-05-09 09:00 | NUR ---
loft worker pile driving attempted to contact Patient's Grand-daughter Angi Garcia at . No response and vp digital marketing social media and crm left her a Voice mail MSG. to call back
--- NOTE | 2017-05-09 10:44 | NUR ---
PT RESTING IN BED COMFORTABLY. NO CHANGE IN LOC. CONTINUE ON DOPAMIN DRIP. PT KEPT CLEAN AND DRY. WILL CONTINUE TO MONITOR.
--- NOTE | 2017-05-09 11:11 | NUR ---
CM NOTE CONCURRENT REVIEW FAXED TO [facility] [phone] OCT[place] PH# [phone] IBIS [phone] FAXED LATEST MICROBIOLOGY RESULTS TO [facility] [place] [phone] ATTN: CHIP PH# [phone]
--- NOTE | 2017-05-09 12:11 | NUR ---
Senior Data Warehouse Developer Contact ICU unit, spoke to FAUZIA Wren to request for MD to place a call Via (language line) to Patient's daughter Laura Singer at . RN took information and will relate to MD Patient's daughter request.
--- NOTE | 2017-05-09 12:23 | NUR ---
REASON FOR EVALUATION: LOW ADALGISA SCORE 12 COMPLETE SKIN ASSESSMENT DONE ON THIS 86 Y/O FEMALE PATIENT FROM [facility] TO [facility], WITH INITIAL DIAGNOSIS OF FEVER. PAST MEDICAL AND SURGICAL HISTORY INCLUDE SEIZURE, DEMENTIA, CHRONIC RESPIRATORY FAILURE AND ON VENTILATOR AND HYPOTENSION. ALL ABOVE INFORMATION WAS OBTAINED FROM THE ADMISSION H&P. LABS ARE WBC 9.7, H/H 9.3/29.7, GLUCOSE 200, ALBUMIN 2.5. CURRENT MEDS INCLUDE MEROPENEM, NITROFURANTOIN, PANTOPRAZOLE, LEVOTHYROXINE AND LEVETIRACETAM . PATIENT IS ON TRACH TO VENT. FC 16 FR PATENT AND INTACT TO CLEAR YELLOW URINE IN MODERATE AMOUNT. SKIN WARM TO TOUCH WNL, NO EDEMA BLE, NO HAIR GROWTH AND BILATERAL PEDAL PULSES PRESENT AND NORMAL. RUQ G TUBE PATENT AND INTACT TO DIABETISOURCE ORDERED. INCONTINENT OF BOWEL, NEEDS MAX ASSISTANCE IN TURNING. INITIAL PLAN OF CARE AND PRESSURE PREVENTIVE MEASURES DISCUSSED WITH PRIMARY RN. INTEGUMENTARY: TRACHEOSTOMY STOMA SITE , CLEAN, RACHAEL-STOMA SKIN INTACT RUQ ABDOMEN GT SITE ,DRY AND CLEAN, SKIN INTACT, NO IRRITATION LUQ OLD GT SITE, 1X1.5 CM OPEN STOMA, ARCHAEL-SKIN CLEAN WITH SMALL AMOUNT POSSIBLE STOMACH CONTENT/FLUIDS SEEPING OUT BILATERAL HEELS - BLANCHABLE REDNESS BLE DRYNESS RECOMMENDATIONS: -OLD GT SITE KEEP AREA DRY AND CLEAN AND REPORT TO MD IF ANY SKIN BREAKS NOTICE, ALLOW OPEN AREA TO CLOSE BY ITSELF -CLEANSE BLE, HEELS AND SACRALCOCCYX WITH SOAP AND WATER, PAT DRY , APPLY HYDRAGUARD BIDWC PREVENTION MEASUREMENT -APPLY MOISTURIZER TO DRY SKIN -TURN AND REPOSITION PATIENT Q2H -OFFLOAD BILATERAL HEELS BY PLACING PILLOWS UNDER CALVES AT ALL TIMES, UNLESS OTHERWISE CONTRAINDICATED -KEEP SKIN CLEAN AND DRY AT ALL TIMES. -PRESSURE REDISTRIBUTION SURFACE THERAPY. -CONTINUE TO FOLLOW DIETITIAN RECOMMENDATIONS RECOMMENDATIONS DISCUSSED WITH PRIMARY RN. WILL FOLLOW UP PATIENT Q 7-10 DAYS AND PRN. PLEASE CONTACT WOUND CARE NURSE FOR ANY QUESTIONS AND CHANGES IN SKIN CONDITION.
[2017-05-09] MEDS ORDERED: HYDRAGUARD CREAM TP PRN (12:50)
--- NOTE | 2017-05-09 13:26 | NUR ---
05/09/17 RD RECOMMENDATIONS: WHEN MEDICALLY APPROPRIATE PER MD, CONSIDER INCREASING ENTERAL FEEDING TO DIABETISOUCE AC AT 70 ML/HR TO PROVIDE 1680 ML, 2016 KCAL, 100.8 GM PROTEIN, 1374 ML FREE WATER. WHEN MEDICALLY APPROPRIATE PER MD, CONSIDER INCREASING WATER FLUSH TO 200 ML Q6H. SPOKE WITH FRANCOIS CAGE REGARDING RECOMMENDATION FOR INCREASED TUBE FEED RATE AND INCREASED WATER, PROVIDED RN WITH PRINT-OUT OF RECOMMENDATION, RN STATED SHE WILL FOLLOW UP WITH MD RD WILL F/U 2-3 DAYS; HIGH RISK. GINGER CORREA RD
[2017-05-09] MEDS: HYDRAGUARD CREAM TP SCH (14:36)
--- NOTE | 2017-05-09 15:48 | NUR ---
PT RESTING IN BED. NO ACUTE DISTRESS NOTED. NO CHANGE IN LOC. ON CONTINUOUS MONITORING.
--- NOTE | 2017-05-09 17:14 | NUR ---
PT RESTING IN BED. SR ON MONITOR. NO ACUTE DISTRESS NOTED. WILL CONTINUE TO MONITOR.
--- NOTE | 2017-05-09 17:30 | NUR ---
TRACH CARE DONE. NO SOB OR DISTRESS NOTED. WILL CONTINUE TO MONITOR.
--- NOTE | 2017-05-09 18:09 | NUR ---
PT RESTING IN BED. NO CHANGE IN LOC. KEPT PT CLEAN AND DRY. WILL CONTINUE TO MONITOR.
[2017-05-09 18:48] LABS: EOSINOPHILS # (AUTO) 0.6 K/uL (0-0.4); HEMATOCRIT 31.8 % (36-48); MONOCYTES # (AUTO) 0.3 K/uL (0.8-1.0)
[2017-05-09 18:53] LABS: BASOPHILS # (AUTO) 0.2 K/uL (0.00-0.22); HEMOGLOBIN 10.3 g/dL (12.0-16.0); LYMPHOCYTES # (AUTO) 1.8 K/uL (2.5-16.5); MEAN CORPUSCULAR HEMOGLOBIN 27 pg (27-31); MEAN CORPUSCULAR HGB CONC 32 g/dL (33-37); MEAN CORPUSCULAR VOLUME 84 fL (80-94); NEUTROPHILS # (AUTO) 6.2 K/uL (1.8-7.7); PLATELET COUNT (AUTO) 294 K/uL (140-450); RED BLOOD CELL COUNT(AUTO) 3.78 MIL/uL (4.20-5.40); RED CELL DISTRIBUTION WIDTH 18.4 % (11.6-13.7); WHITE BLOOD COUNT (AUTO) 9.1 K/uL (4.8-10.8)
--- NOTE | 2017-05-09 19:16 | NUR ---
REPORT GIVEN TO NOC SHIFT RN FOR CONTINUITY OF CARE. PT ON STABLE CONDITION.
--- NOTE | 2017-05-09 19:25 | NUR ---
RECEIVED REPORT FROM [email or web address], [email or web address]. PT ON BED WITH CLOSED EYES, NON VERBAL, RESPONSIVE TO LIGHT PAIN. TRACH TO VENT WITH SETTING A/C MODE RATE 12, FIO2 30%, VT 500, PEEP 5. PERIPHERAL LINES ON RIGHT FOREARM 22G, RIGHT UPPER FOREARM 18G WITH DOPAMINE 2MCG/KG/MIN AND 20G LEFT HAND IN LOCKED. NO ACUTE DISTRESS NOTED. PT HAS OLD G TUBE SITE ON LEFT UPPER QUADRANT, MINIMAL AMOUNT OF CLEAR YELLOW GASTRIC DRAINAGE FROM OLD S TUBE STOMA AND NEW G TUBE SITE TO FEEDING. BILATERAL CLEAR LUNGS SOUND AND ACTIVE BOWEL SOUND FROM ALL 4QUADS.HILTON CATH IN PLACE DRAINING CLEAR YELLOW URINE NOTED. BILATERAL PEDAL PULSE PALPATED. HOB ELEVATED, BED IN LOW POSITION, CALL LIGHT WITHIN REACH. CONTINUE TO MONITOR.
--- NOTE | 2017-05-09 19:35 | NUR ---
RECEIVED PT ON THE SAME VENT SETTINGS, HHN IN LINE, BS ARE BILAT CLEAR, NO DISTRESS NOTED
--- NOTE | 2017-05-09 19:36 | NUR ---
RECEIVED PT ON THE SAME VENT SETTINGS. VENT CK DONE, PT HAVE EPISODES OF HR OVER 135, SX SMALL CLOUDY THIN, CHANGE HME AND DRESSING AND TRACH TIE.HOLD HHN DUE TO HR HIGH. Addendum: 05/10/17 at 0555 by Elizabeth Olmstead RT RECEIVED PT ON THE SAME VENT SETTINGS. VENT CK DONE, PT HAVE EPISODES OF HR OVER 135, SX SMALL CLOUDY THIN, CHANGE HME AND DRESSING AND TRACH TIE.HOLD HHN DUE TO HR HIGH.NOTES FOR PT JEWELL
[2017-05-09] MEDS: BISACODYL 10 MG SUPP RC SCH (20:55)
--- NOTE | 2017-05-09 21:00 | NUR ---
ADMINISTERED SCHEDULED MEDICATIONS ORDERED. TOLERATED WELL. NO ACUTE DISTRESS NOTED. WILL CONTINUE TO MONITOR.
--- NOTE | 2017-05-09 22:40 | NUR ---
PT IS IN ASLEEP, RESPONSIVE TO LIGHT PAIN. NO ACUTE DISTRESS NOTED. ON DOPAMINE DRIP, SBP ABOVE 90 NOTED. WILL CONTINUE TO MONITOR.
[2017-05-10] VITALS (60 sets, daily range): BP systolic 64–129; BP diastolic 34–87
--- NOTE | 2017-05-10 00:10 | NUR ---
BS CHECKED 186 NOTED, GIVEN 2 UNITS INSULIN LISPRO, TOLERATED WELL. NO ACUTE DISTRESS NOTED. SR ON MONITOR WITH DOPAMINE DRIP. WILL CONTINUE TO MONITOR.
[2017-05-10] MEDS: BLOOD GLUCOSE MONITORING 1 DEV DEV FS SCH ×4 (00:18→18:51)
[2017-05-10] MEDS: INSULIN LISPRO SLIDING SCALE 100 UNITS/ML VIAL SUBQ PRN ×2 (00:19→05:59)
[2017-05-10] MEDS: ALBUTEROL 0.083% 2.5 MG/3 ML NEBU IH SCH ×4 (01:07→19:20)
[2017-05-10] MEDS: HYDRAGUARD CREAM TP SCH ×2 (01:08→13:22)
--- NOTE | 2017-05-10 02:05 | NUR ---
PT ON DOPAMINE DRIP SBP ABOVE 90 NOTED. NO ACUTE DISTRESS NOTED. WILL CONTINUE TO MONITOR.
--- NOTE | 2017-05-10 04:00 | NUR ---
PROVIDED ORAL CARE, TOLERATED WELL. SMALL AMOUNT CLEAR SECRETION NOTED. NO ACUTE DISTRESS NOTED. WILL CONTINUE TO MONITOR.
[2017-05-10] MEDS: METOCLOPRAMIDE 10 MG/2 ML INJ VIAL IVP SCH ×3 (04:22→21:45)
[2017-05-10] MEDS: MEROPENEM 1,000 MG in NACL 0.9% 100 ML IV SCH ×3 (04:23→21:56)
--- NOTE | 2017-05-10 05:00 | NUR ---
ADMINISTERED SCHEDULED MEDS, TOLERATED WELL. NO ACUTE DISTRESS NOTED.
[2017-05-10] MEDS: NACL 0.9% 1,000 ML IV SCH (05:10)
--- NOTE | 2017-05-10 06:00 | NUR ---
BS CHECKED 151 NOTED. GIVEN 2 UNITS OF INSULIN LISPRO. SR ON THE DENTAL SERVICES DIRECTOR WITH DOPAMINE DRIP. WILL CONTINUE TO MONITOR.
--- NOTE | 2017-05-10 07:07 | NUR ---
RECIVED PT ON VENT WITH SETTINGS CHARTED BREATH SOUNDS PRESENT BILAT COARSE SXN PT WITH GREENISH SECS [facility] BAG AT BEDSIDE VENT PLUGGED INTO RED OUTLET
--- NOTE | 2017-05-10 07:10 | NUR ---
REPORT GIVEN TO JENIFFER. CAGE, DONAVON.
--- NOTE | 2017-05-10 07:10 | NUR ---
RECEIVED REPORT FROM NOC SHIFT RN. PT RESTING IN BED. NO ACUTE DISTRESS. SB ON MONITOR. PT ON TRACH TO VENT ON A/C VC MODE WITH SETTING FIO2 30% TV 500 RR 12 PEEP 5. PT DRY AND WARM TO TOUCH. LUNGS SOUND CLEAR ON AUSCULTATION. PERIPHERAL LINE ON RIGHT AND LEFT ARM. RIGHT FORE ARM 22 G, RIGHT HAND 20 G AND LEFT HAND 20 G. NS RUNNING AT 40 ML/HR. PT ON DOPAMIN DRIP AT 2 MCG/KG/MIN. PT ON GTUBE FEEDING DIABETISOURCE RUNNING AT 50 ML/HR. OLD GTUBE SITE ON LUQ WITH BAG COLLECTING SMALL AMOUNT OF DISCHARGE VIA OPENING. ABDOMEN SOFT, ROUND AND NON-TENDER. HYPOACTIVE BOWEL SOUND. HILTON'S CATH IN PLACE DRAINING CLEAR YELLOW URINE VIA GRAVITY. CALL LIGHT WITHIN REACH. BED IN LOW POSITION LOCKED. WILL CONTINUE TO MONITOR.
[2017-05-10] MEDS: NITROFURANTOIN 100 MG CAP GT SCH ×2 (08:25→17:22)
[2017-05-10] MEDS: DOCUSATE 100 MG/10 ML UDC GT SCH ×2 (08:25→21:44)
[2017-05-10] MEDS: SIMETHICONE 80 MG TAB.CHEW GT SCH ×2 (08:26→21:48)
[2017-05-10] MEDS: LACTOBACILLUS RHAMNOSUS GG 1 EACH CAP GT SCH (08:26)
[2017-05-10] MEDS: LEVOTHYROXINE 0.075 MG TAB GT SCH (08:26)
[2017-05-10] MEDS: CHOLECALCIFEROL 1,000 IU TAB PO SCH (08:27)
[2017-05-10] MEDS: PANTOPRAZOLE 40 MG INJ VIAL IVP SCH (08:27)
[2017-05-10] MEDS: ENOXAPARIN 30 MG/0.3 ML SYR SUBQ SCH (08:28)
[2017-05-10] MEDS: ASPIRIN 81 MG TAB.CHEW PO SCH (08:29)
[2017-05-10] MEDS: POTASSIUM CHLORIDE 20% 40 MEQ/15 ML UDC GT SCH (08:29)
[2017-05-10] MEDS: MULTIVITAMIN 1 TAB PO SCH (08:29)
[2017-05-10] MEDS: glipiZIDE 5 MG TAB GT SCH (08:29)
[2017-05-10] MEDS: levETIRAcetam 100 MG/ML ORASYR GT SCH ×2 (08:30→21:43)
[2017-05-10] MEDS: ARTIFICIAL TEARS OPHTH OINT 3.5 GM TUBE OP SCH ×2 (08:32→21:47)
--- NOTE | 2017-05-10 08:49 | NUR ---
CM NOTE CONCURRENT REVIEW FAXED TO [facility] [phone] OCTOBER # [phone] IBIS [phone]
--- NOTE | 2017-05-10 10:28 | NUR ---
PT RESTING IN BED COMFORTABLY. SR ON MONITOR. NO CHANGE IN LOC. KEPT PT CLEAN AND DRY. WILL CONTINUE TO MONITOR.
--- NOTE | 2017-05-10 10:29 | NUR ---
PT RESTING IN BED COMFORTABLY. NO CHANGE IN LOC. BP 111/66. ON CONTINUOUS MONITORING FOR BP. KEPT PT CLEAN AND DRY. WILL CONTINUE TO MONITOR.
--- NOTE | 2017-05-10 11:45 | NUR ---
DR. DUENAS IN TO SEE PT. WILL FOLLOW UP ON ORDERS.
--- NOTE | 2017-05-10 13:30 | NUR ---
ADMINISTERED MEDICATION PER ORDER. PT TOLERATING WELL. NO CHANGE IN LOC. WILL CONTINUE MONITORING.
--- NOTE | 2017-05-10 14:01 | NUR ---
CM NOTE INITIAL REVIEW FAXED TO [facility] [phone], OCTOBER [phone] IBIS # [phone] Addendum: 05/11/17 at 1218 by Laura Tellez CM CORRECTION CONCURRENT REVIEW FAXED
[2017-05-10] MEDS ORDERED: PROBIOTIC SCREEN 1 EA MISC MC PRN (15:15)
--- NOTE | 2017-05-10 15:44 | NUR ---
PT RESTING IN BED COMFORTABLY. BP 103/55. PT ON CONTINUOUS MONITORING FOR BP. NO CHANGE IN LOC. WILL CONTINUE TO MONITOR.
--- NOTE | 2017-05-10 17:40 | NUR ---
CONTINUED TO MONITOR PT ON VENT WITH SETTINGS CHARTED BREATH SOUNDS PRESENT BILAT COARSE SXN PT WITH MOD AMT OFF WHITE SECS TRACH CARE DONE AMBU BAG AT BEDSIDE VENT PLUGGED INTO RED OUTLET
--- NOTE | 2017-05-10 17:45 | NUR ---
ADMINISTERED MEDICATION PER ORDERED. PT TOLERATING WELL. NO CHANGE IN LOC. WILL CONTINUE TO MONITOR.
--- NOTE | 2017-05-10 19:05 | NUR ---
received patietn awake but doesnt repond to simple questions, doesnt follow command, vital signs stable,
--- NOTE | 2017-05-10 19:28 | NUR ---
REPORT GIVEN TO NOC SHIFT RN FOR CONTINUITY OF CARE. PT ON STABLE CONDITION.
[2017-05-10] MEDS: BISACODYL 10 MG SUPP RC SCH (21:44)
[2017-05-11] VITALS (20 sets, daily range): BP systolic 95–137; BP diastolic 53–84
--- NOTE | 2017-05-11 | NUR ---
turned to sides, unable to cooperate, evelio upper, lower exremities weak
[2017-05-11] MEDS: BLOOD GLUCOSE MONITORING 1 DEV DEV FS SCH ×4 (00:38→17:39)
[2017-05-11] MEDS: ALBUTEROL 0.083% 2.5 MG/3 ML NEBU IH SCH ×3 (00:41→13:05)
[2017-05-11] MEDS: INSULIN LISPRO SLIDING SCALE 100 UNITS/ML VIAL SUBQ PRN ×3 (00:46→13:12)
[2017-05-11] MEDS: HYDRAGUARD CREAM TP SCH ×2 (03:05→13:14)
[2017-05-11] MEDS: MEROPENEM 1,000 MG in NACL 0.9% 100 ML IV SCH ×2 (05:00→13:13)
[2017-05-11] MEDS: METOCLOPRAMIDE 10 MG/2 ML INJ VIAL IVP SCH ×2 (05:01→13:13)
[2017-05-11 06:25] LABS: BASOPHILS # (AUTO) 0.3 K/uL (0.00-0.22); BASOPHILS % (AUTO) 2.5 % (0.0-2.0); EOSINOPHILS # (AUTO) 0.7 K/uL (0-0.4); HEMATOCRIT 29.9 % (36-48); HEMOGLOBIN 9.4 g/dL (12.0-16.0); LYMPHOCYTES # (AUTO) 2.4 K/uL (2.5-16.5); MEAN CORPUSCULAR HEMOGLOBIN 26 pg (27-31); MEAN CORPUSCULAR HGB CONC 31 g/dL (33-37); MEAN CORPUSCULAR VOLUME 83 fL (80-94); MONOCYTES # (AUTO) 0.5 K/uL (0.8-1.0); MONOCYTES % (AUTO) 4.4 % (1.7-9.3); NEUTROPHILS # (AUTO) 6.9 K/uL (1.8-7.7); NEUTROPHILS % (AUTO) 65.1 % (42.2-75.2); PLATELET COUNT (AUTO) 273 K/uL (140-450); RED BLOOD CELL COUNT(AUTO) 3.58 MIL/uL (4.20-5.40); RED CELL DISTRIBUTION WIDTH 18.8 % (11.6-13.7); WHITE BLOOD COUNT (AUTO) 10.8 K/uL (4.8-10.8)
[2017-05-11 06:52] LABS: ANION GAP 10.9 (8-16); CARBON DIOXIDE 25.8 mmol/L (21-32); CHLORIDE 106 mmol/L (98-107); CREATININE 0.6 mg/dL (0.6-1.3); GLUCOSE 157 mg/dL (74-106); POTASSIUM 3.7 mmol/L (3.5-5.1); SODIUM SERUM 139 mmol/L (136-145); UREA NITROGEN, BLOOD 17 mg/dL (7-18)
--- NOTE | 2017-05-11 07:00 | NUR ---
recived pt on vent with settings as charted breath sounds present bilatr tracxh secure sxn pt with min amt off white secsambu bag at bedside vent plugged into red outlet will continue to monitot pt on vent
--- NOTE | 2017-05-11 07:15 | NUR ---
RECEIVED PATIENT ON BED .INITIAL ASSESSMENT DONE TO PATIENT.ALL IV NO SIGNS OF INFILTRATION.TRACHE TO VENT WITH VENT SETTING FOLLOWS :FIO2=30 PERCENT,SK=929,PEEP=5,AC=12.PT NOT IN ANY CARDIORESPIRATORY DISTRESS..RASH NOTED ON RIGHT ARM AND RIGHT SIDE OF BACK.WILL MONITOR .WOUND RN WILL BE CONSULTED.HILTON TO GRAVITY.NSR ON THE MONITOR.GTUBE WITH DIABETISOURCE AT 70 ML/H AND 150 ML WATER FLUSH Q 6 HOURS.OLD GTUBE SITE AT LEFT UPPER QUADDRANT WITH COLOSTOMY BAG FOR DRAINAGE.CONTACT PRECAUTION MAINTAINED.
[2017-05-11] MEDS: levETIRAcetam 100 MG/ML ORASYR GT SCH (09:11)
[2017-05-11] MEDS: POTASSIUM CHLORIDE 20% 40 MEQ/15 ML UDC GT SCH (09:12)
[2017-05-11] MEDS: PANTOPRAZOLE 40 MG INJ VIAL IVP SCH (09:12)
[2017-05-11] MEDS: CHOLECALCIFEROL 1,000 IU TAB PO SCH (09:12)
[2017-05-11] MEDS: POLYETHYLENE GLYCOL 17 GM/PKT GT SCH (09:14)
[2017-05-11] MEDS: NITROFURANTOIN 100 MG CAP GT SCH ×2 (09:14→17:39)
[2017-05-11] MEDS: SIMETHICONE 80 MG TAB.CHEW GT SCH (09:14)
[2017-05-11] MEDS: DOCUSATE 100 MG/10 ML UDC GT SCH (09:14)
[2017-05-11] MEDS: LEVOTHYROXINE 0.075 MG TAB GT SCH (09:15)
[2017-05-11] MEDS: ASPIRIN 81 MG TAB.CHEW PO SCH (09:15)
[2017-05-11] MEDS: LACTOBACILLUS RHAMNOSUS GG 1 EACH CAP GT SCH (09:15)
[2017-05-11] MEDS: ARTIFICIAL TEARS OPHTH OINT 3.5 GM TUBE OP SCH (09:16)
[2017-05-11] MEDS: glipiZIDE 5 MG TAB GT SCH (09:17)
[2017-05-11] MEDS: MULTIVITAMIN 1 TAB PO SCH (09:18)
[2017-05-11] MEDS: ENOXAPARIN 30 MG/0.3 ML SYR SUBQ SCH (09:20)
--- NOTE | 2017-05-11 12:17 | NUR ---
CM NOTE CONCURRENT REVIEW FAXED TO [facility] [phone], OCTOBER [phone] IBIS PH# [phone]
--- NOTE | 2017-05-11 15:00 | NUR ---
DR DUENAS MADE AWARE OF RASHES AT BACK AND RIGHT UPPER POSTERIOR ARM.NO ORDERS.PER MD OK TO TRANSFER YO [facility] TODAY.
--- NOTE | 2017-05-11 16:25 | NUR ---
DAUGHTER LEANNE AWARE OF DISCHARGE
--- NOTE | 2017-05-11 16:26 | NUR ---
REPORT GIVEN TO STEPHANIE STAPLES.
--- NOTE | 2017-05-11 17:09 | NUR ---
CALLED [facility] AND ARRANGED FOR PT TRANSPORT BACK [place] [facility]. PT TO BE TRANSFERRED TO ROOM 8B UNDER DR. ROSA HDZ. PICKUP TIME AT APPROXIMATELY 1830.
--- NOTE | 2017-05-11 17:14 | NUR ---
CONTINUED TO MONITOR PT ON VENT WITH SETTINGS CHARTED BREATH SOUNDS PRESENT BILAT CLEAR TRACH SECURE TRACH CARE DONE SXN PT WITH MOD AMT CLEAR THICK SECS AMBU BAG AT BEDSIDE VENT PLUGGED NTO RED OUTLET
--- NOTE | 2017-05-11 18:40 | NUR ---
REPORT GIVEN TO JANET PUCKETT [facility].VS STABLE.YOBANI CRAIG .PT TOLERATED WELL.
--- NOTE | 2017-05-11 18:50 | NUR ---
[place] [facility].PT IS STABLE. VITAL SIGNS STABLE.
== END 2017-05-11 18:50 | disposition home or self-care (01) | DRG 720 ==
LOC: MED 14:00 → MIC 16:51
PROVIDERS: ADMIT Internal Medicine Pulmonary Disease; ATTEND Internal Medicine Pulmonary Disease
PROC: 5A1955Z Respiratory Ventilation, Greater than 96 Consecutive Hours (ICD-10-PCS; principal; 2017-05-05)
DX: A41.9 Sepsis, unspecified organism (principal); R65.21 Severe sepsis with septic shock; G93.41 Metabolic encephalopathy; Z99.11 Dependence on respirator [ventilator] status; J96.10 Chronic respiratory failure, unspecified whether with hypoxia or hypercapnia; Z93.0 Tracheostomy status; Z66 Do not resuscitate; N39.0 Urinary tract infection, site not specified; E11.9 Type 2 diabetes mellitus without complications; G40.909 Epilepsy, unspecified, not intractable, without status epilepticus; B96.20 Unspecified Escherichia coli [E. coli] as the cause of diseases classified elsewhere; D64.9 Anemia, unspecified; E03.9 Hypothyroidism, unspecified; F03.90 Unspecified dementia, unspecified severity, without behavioral disturbance, psychotic disturbance, mood disturbance, and anxiety; M81.0 Age-related osteoporosis without current pathological fracture; Z93.1 Gastrostomy status; Z86.73 Personal history of transient ischemic attack (TIA), and cerebral infarction without residual deficits
CPT/HCPCS: 36415; 36600; 71010; 80048; 80053; 81001; 82803; 82948; 83605; 83735; 83880; 84100; 84484; 85025; 85610; 85730; 87040; 87070; 87081; 87086; 87186; 87205; 93005; 94003; 94640; 96361; 96365; 96368; 99291; C1758; C9113; J1265; J1650; J1815; J1956; J2185; J2543; J2765; J7030; J7060; J7613; Q0092

== ENCOUNTER 2017-07-24 17:59 | Inpatient (IN) | payer OTHER, MEDICARE ==
[~2017-07-24] VITALS: Ht 157.5 cm; Wt 72.1 kg
[2017-07-24 18:12] VITALS: BP 72/30
--- NOTE | 2017-07-24 18:21 | NUR ---
PATIENT TO BED 10
[2017-07-24] MEDS ORDERED: VANCOMYCIN 1,000 MG in DEXTROSE 5% 250 ML IV ONE (18:25)
[2017-07-24] MEDS ORDERED: PIPERACILLIN/TAZOBACTAM 4.5 GM in DEXTROSE 5% 100 ML IV ONE (18:25)
[2017-07-24] MEDS ORDERED: DEXTROSE 50% 50 ML SYR IVP ONE ×2 (18:25→18:26)
[2017-07-24 18:30] VITALS: BP 69/33
--- NOTE | 2017-07-24 18:30 | NUR ---
87/F [facility] for evaluation of abnormal labs and low blood pressure. Pt is vent dependent. Arrived to ED in no respiratory distress. Arrived with IV line to right forearm with no IV fluids infusing. Pt awake and alert to painful stimuli, non verbal, non ambulatory. Lungs clear bilaterally. G-tube noted, active bowel sounds x4 quadrants. Brief in place. Pt placed on curtain drier, pulse oximetry and blood pressure monitoring.
[2017-07-24] MEDS ORDERED: NACL 0.9% 2,100 ML IV ONE (18:50)
--- NOTE | 2017-07-24 19:01 | NUR ---
HILTON INSERTED. URINE SAMPLE COLLECTED AND SENT TO LAB.
[2017-07-24] MEDS ORDERED: VANCOMYCIN 1,000 MG VIAL ONE (19:19)
[2017-07-24 19:20] LABS: BASOPHILS # (AUTO) 0.1 K/uL (0.00-0.22); BASOPHILS % (AUTO) 0.8 % (0.0-2.0); EOSINOPHILS # (AUTO) 0.5 K/uL (0-0.4); EOSINOPHILS % (AUTO) 5.5 % (0.0-4.0); LYMPHOCYTES # (AUTO) 1.2 K/uL (2.5-16.5); LYMPHOCYTES % (AUTO) 12.1 % (20.5-51.1); MEAN CORPUSCULAR HEMOGLOBIN 27 pg (27-31); MEAN CORPUSCULAR HGB CONC 31 g/dL (33-37); MEAN CORPUSCULAR VOLUME 85 fL (80-94); MONOCYTES # (AUTO) 0.6 K/uL (0.8-1.0); MONOCYTES % (AUTO) 5.8 % (1.7-9.3); NEUTROPHILS # (AUTO) 7.2 K/uL (1.8-7.7); NEUTROPHILS % (AUTO) 75.8 % (42.2-75.2); PLATELET COUNT (AUTO) 359 K/uL (140-450); RED BLOOD CELL COUNT(AUTO) 2.47 MIL/uL (4.20-5.40); RED CELL DISTRIBUTION WIDTH 16.8 % (11.6-13.7); WHITE BLOOD COUNT (AUTO) 9.6 K/uL (4.8-10.8)
[2017-07-24 19:20] LABS: APPEARANCE,URINE CLEAR (CLEAR); BILIRUBIN,URINE NEGATIVE (NEGATIVE); BLOOD, URINE TRACE-I (NEGATIVE); COLOR,URINE YELLOW (YELLOW); LEUKOCYTE ESTERASE ,URINE 3+ (NEGATIVE); NITRITE, URINE NEGATIVE (NEGATIVE); UGLUCOSE NEGATIVE (NEGATIVE)
[2017-07-24] MEDS ORDERED: PIPERACILLIN/TAZOBACTAM 2.25 GM VIAL IV ONE (19:25)
[2017-07-24 19:27] LABS: HEMOGLOBIN 6.6 g/dL (12.0-16.0)
[2017-07-24 19:28] LABS: RBC,URINE 0-5 (RARE) /HPF (0-5)
--- NOTE | 2017-07-24 19:45 | NUR ---
FAMILY AT BEDSIDE WITH PT
--- NOTE | 2017-07-24 19:46 | NUR ---
Patient being evaluated by physician at bedside.
[2017-07-24 19:53] LABS: PROTHROMBIN TIME 10.2 secs (10.8-13.4)
[2017-07-24 20:11] LABS: ALBUMIN 1.9 g/dL (3.4-5.0); ANION GAP 14.9 (8-16); ASPARTATE AMINOTRANSFERASE 37 U/L (15-37); CARBON DIOXIDE 23.7 mmol/L (21-32); CHLORIDE 103 mmol/L (98-107); CREATININE 1.8 mg/dL (0.6-1.3); GLUCOSE 169 mg/dL (74-106); LIPASE 137 U/L (73-393); POTASSIUM 4.6 mmol/L (3.5-5.1); SODIUM SERUM 137 mmol/L (136-145); TOTAL BILIRUBIN 0.3 mg/dL (0.0-1.0)
[2017-07-24 20:12] LABS: UREA NITROGEN, BLOOD 109 mg/dL (7-18)
--- NOTE | 2017-07-24 20:20 | NUR ---
PT SON, EFRAIN NIXON SIGNED CONSENT FOR BOTH CENTRAL LINE INSERTION AND BLOOD TRANSFUSION. EFRAIN IS PT SON
[2017-07-24 20:23] LABS: CREATINE KINASE MB 0.8 ng/mL (0-3.6)
[2017-07-24] MEDS ORDERED: NACL 0.9% 1,000 ML IV ONE (20:45)
[2017-07-24] MEDS ORDERED: NOREPINEPHRINE 4 MG in DEXTROSE 5% 250 ML IV ONE (20:45)
--- NOTE | 2017-07-24 20:57 | NUR ---
CENTRAL LINE BEING PLACED AT BEDSIDE BY DR TORIBIO
--- NOTE | 2017-07-24 20:58 | NUR ---
VENT SETTING: MODE: AC/VC FIO2 28 VT 500 12 RATE FLOW 40L/MIN PEEP 5 PMAX 40
[2017-07-24] MEDS ORDERED: NOREPINEPHRINE 4 MG/4 ML VIAL IV ONE (21:01)
--- NOTE | 2017-07-24 21:20 | NUR ---
CALLED XRAY FOR CENTRAL LINE PLACEMENT
[2017-07-24 21:38] VITALS: BP 110/52
--- NOTE | 2017-07-24 21:45 | NUR ---
XRAY AT BEDSIDE
--- NOTE | 2017-07-24 21:53 | NUR ---
PER DR TORIBIO CENTRAL IN PLACE WITH XRAY VERIFICATION; OK TO START MEDS
--- NOTE | 2017-07-24 22:04 | NUR ---
savita holbrook rn levophed, was not administered due to x-ray placement confirmation of central line by dr. vigil
--- NOTE | 2017-07-24 22:04 | NUR ---
Patient will be admitted to care of DR. HDZ. Admited to ICU BED 5. Will go to room 5. Belongings list completed. Report to NANCI CAGE. Bassam blood, just became ready, was not able to administer in the er.
--- NOTE | 2017-07-24 22:05 | NUR ---
TRANSFERRED PT TO ICU 5 WITH KOBY CAGE AND VIGNESH CAGE
--- NOTE | 2017-07-24 22:07 | NUR ---
PT ARRIVED IN THE UNIT VIA GURNEY. PT DROWSY, AND UNABLE TO COMMUNICATE NEEDS. FLACC 0. VS STABLE. AFEBRILE. S1+S2 HEARD. PULSES ARE PALPABLE IN EXTREMITIES. SINUS RHYTHM ON MONITOR. LUNG SOUNDS RHONCHI AND COARSE. PT HAS TRACHEOSTOMY IN PLACE. TRACH TO VENT WITH SETTINGS: AC12, FIO2 28, TV 500 AND PEEP 5. GTUBE IN PLACE. NO RESIDUAL NOTED. DRESSING CHANGED. PT HAS NEWLY INSERTED RIGHT IJ TRIPLE LUMEN CENTRAL LINE. PT HAS PERIPHERAL IV ON LEFT FOREARM 18G AND RIGHT FOREARM 22G. LINES ARE PATENT AND INTACT. HILTON CATHETER IN PLACE, DRAINING CLEAR AND YELLOW URINE. HOB KEPT AT 30 DEGREES. CALL LIGHT WITHIN REACH. ALL SAFETY PRECAUTIONS IN PLACE. WILL CONTINUE TO MONITOR PT.
[2017-07-24 22:17] VITALS: BP 92/51
--- NOTE | 2017-07-24 22:45 | NUR ---
CONTACTED DR. HDZ REGARDING ADMISSION ORDERS. SPOKE WITH DR. HDZ AND RECEIVED NEW ORDERS.
[2017-07-24] MEDS: NACL 0.9% 1,000 ML IV SCH (22:55)
[2017-07-24] MEDS ORDERED: ALBUTEROL SULFATE/IPRATROPIU 3 ML SOL IH PRN (22:55)
[2017-07-24] MEDS ORDERED: VANCOMYCIN PER PHARMACY MC PRN (22:55)
[2017-07-24 23:08] VITALS: BP 101/58
--- NOTE | 2017-07-24 23:50 | NUR ---
PT HAS ORDER FOR BLOOD TRANSFUSION. FIRST BAG STARTED. WILL MONITOR PT FOR REACTION. PER DR. HDZ, ADMINISTER ALL 3 UNITS OF BLOOD, AND THEN START PT ON NS PER ORDER.
[2017-07-25] VITALS (24 sets, daily range): BP systolic 100–145; BP diastolic 31–92
[2017-07-25] MEDS ORDERED: PIPER/TAZO 2.25GM/D5W PREMIX 50 ML IV SCH
[2017-07-25] MEDS ORDERED: DEXTROSE 50% 50 ML SYR IVP ONE ×2 (00:12→00:15)
--- NOTE | 2017-07-25 00:13 | NUR ---
CONTACTED DR. HDZ REGARDING PT'S BLOOD GLUCOSE. RECEIVED NEW ORDERS. WILL CONTINUE TO MONITOR PT.
[2017-07-25] MEDS ORDERED: DEXTROSE 50% 50 ML SYR IVP PRN (00:20)
--- NOTE | 2017-07-25 02:18 | NUR ---
NO SIGNS OF DISTRESS NOTED ON PT. VS STABLE AT THIS TIME. NO CHANGE IN CONDITION. ALL SAFETY PRECAUTIONS ARE IN PLACE. WILL CONTINUE TO MONITOR PT.
--- NOTE | 2017-07-25 03:02 | NUR ---
SECOND BAG OF BLOOD STARTED RUNNING. VS STABLE. AFEBRILE. WILL CONTINUE TO MONITOR FOR ANY REACTION. NO CHANGE IN PT CONDITION AT THIS TIME. BLOOD PRESSURE TRENDING UP. NO SIGNS OF DISTRESS NOTED ON PT. WILL CONTINUE TO MONITOR.
[2017-07-25] MEDS ORDERED: PIPERACILLIN/TAZOBACTAM 2.25 GM VIAL IV ONE (03:46)
[2017-07-25] MEDS: PIPER/TAZO 2.25GM/D5W PREMIX 50 ML IV SCH ×3 (04:47→20:21)
--- NOTE | 2017-07-25 05:08 | NUR ---
VS STABLE AT THIS TIME. NO CHANGE IN CONDITION. SECOND BAG OF BLOOD STILL INFUSING. NO REACTION NOTED. ALL SAFETY PRECAUTIONS ARE IN PLACE. WILL CONTINUE TO MONITOR PT.
[2017-07-25] MEDS: BLOOD GLUCOSE MONITORING 1 DEV DEV FS SCH ×4 (05:50→18:31)
--- NOTE | 2017-07-25 06:20 | NUR ---
CALLED DR. HDZ TO INFORM HIM THAT LABS ARE NOT DRAWN DUE TO BLOOD STILL INFUSING. PER DR. HDZ GIVE ALL 3 UNITS OF BLOOD AND THEN HAVE LABS TO BE DRAWN. DR HDZ WANTS [facility] CONSULT FOR PT.
--- NOTE | 2017-07-25 06:43 | NUR ---
CALLED [facility] TO CHECK WHO IS ON-CALL TODAY FOR CONSULTATION PER ORDER FROM DR. HDZ. ORDER FOR CONSULT WITH DR. DUENAS IN PLACE. EXCHANGE CANNOT TAKE MESSAGE TO PASS ON THE DOCTOR, NEED TO CALL BACK LATER. WILL ENDORSE TO THE NEXT SHIFT
--- NOTE | 2017-07-25 07:18 | NUR ---
REPORT GIVEN TO FAUZIA PARRISH FOR CONTINUITY OF CARE. PT IN STABLE CONDITION.
--- NOTE | 2017-07-25 07:20 | NUR ---
RECEIVED REPORT FROM NOC SHIFT RN. PT RESTING IN BED. NSR ON MONITOR. PT NONVERBAL, DOESNOT FOLLOW COMMANDS, NO SPONTANEOUS EYES OPENING. SKIN DRY AND WARM TO TOUCH. ON TRACH TO VENT AC 12 FIO2 28 TV 500 PEEP 5. RT IJ TRIPLE LUMEN NOTED. PT ON BLOOD TRANSFUSION. NO BT REACTION NOTED. PERIPHERAL LINE ON RIGHT FOREARM 22G AND LEFT FOREARM 18G NOTED. INTACT. LEFT HAND DEFORMITY NOTED. GTUBE ON RIGHT UPPER QUADRANT NOTED. RESIDUAL 0. ABDOMEN SOFT ROUND AND NON-TENDER. ACTIVE BOWEL SOUND PRESENT ON AUSCULTATION. FOLEYS CATH IN PLACE DRAINING YELLOW URINE VIA GRAVITY. KEPT HOB ELEVATED. BED IN LOW POSITION LOCKED. WILL CONTINUE TO MONITOR.
--- NOTE | 2017-07-25 08:10 | NUR ---
CALLED DR. DUENAS. NOTIFIED ABOUT CONSULTATION. WILL COME TO SEE KYLE RAWLS.
--- NOTE | 2017-07-25 08:16 | NUR ---
AT [address] HDZ. UPDATED PT CONDITION. WILL FOLLOW UP ON ORDER.
[2017-07-25] MEDS: PANTOPRAZOLE 40 MG INJ VIAL IVP SCH (08:50)
--- NOTE | 2017-07-25 08:51 | NUR ---
PATIENT HAS BEEN SCREENED AND CATEGORIZED HIGH NUTRITION RISK. PATIENT WILL BE SEEN WITHIN 1-2 DAYS OF ADMISSION. 07/24/17-07/25/[address]
[2017-07-25] MEDS ORDERED: DOCUSATE SODIUM 100 MG GELCAP PO SCH (09:00)
[2017-07-25] MEDS: NACL 0.9% 1,000 ML IV SCH ×2 (09:50→18:32)
[2017-07-25] MEDS ORDERED: DOCUSATE 100 MG/10 ML UDC GT SCH (10:00)
[2017-07-25] MEDS ORDERED: levETIRAcetam 100 MG/ML ORASYR GT SCH (10:02)
[2017-07-25] MEDS ORDERED: SIMETHICONE 80 MG TAB.CHEW GT SCH (10:03)
[2017-07-25] MEDS ORDERED: POLYETHYLENE GLYCOL 17 GM/PKT GT SCH (10:04)
[2017-07-25] MEDS ORDERED: LEVOTHYROXINE 0.075 MG TAB GT SCH (10:05)
--- NOTE | 2017-07-25 10:05 | NUR ---
AT BT COMPLETED. NO BT REACTION NOTED. T 98.7, HR 77 RR 18 BP 155/90. WILL CONTINUE TO MONITOR.
--- NOTE | 2017-07-25 10:31 | NUR ---
CALL LAB FOR CBC AFTER 2 HRS OF TRANSFUSION.
--- NOTE | 2017-07-25 10:35 | NUR ---
PT SEEN BY DR. DUENAS, UPDATED PT CONDITION. WILL FOLLOW UP ON ORDER.
--- NOTE | 2017-07-25 11:10 | NUR ---
PATIENT IS QUIET AND RESTING. FAMILY AT BEDSIDE. NO RESPIRATORY DISTRESS NOTED AT THIS TIME.
[2017-07-25] MEDS: INSULIN LISPRO SLIDING SCALE 100 UNITS/ML VIAL SUBQ PRN ×2 (12:01→18:30)
[2017-07-25] MEDS ORDERED: PROBIOTIC SCREEN 1 EA MISC MC PRN (12:10)
--- NOTE | 2017-07-25 12:17 | NUR ---
PT RESTING IN BED COMFORTABLY. NO RESPIRATORY DISTRESS NOTED. NO CHANGE IN LOC. HR 73 RR 15 SPO2 97% BP 127/69. ORAL CARE PROVIDED. KEPT PT CLEAN AND DRY. WILL CONTINUE TO MONITOR.
[2017-07-25 12:25] LABS: BASOPHILS # (AUTO) 0.1 K/uL (0.00-0.22); BASOPHILS % (AUTO) 0.6 % (0.0-2.0); EOSINOPHILS # (AUTO) 0.4 K/uL (0-0.4); EOSINOPHILS % (AUTO) 3.7 % (0.0-4.0); HEMATOCRIT 34.6 % (36-48); HEMOGLOBIN 11.3 g/dL (12.0-16.0); LYMPHOCYTES # (AUTO) 0.7 K/uL (2.5-16.5); LYMPHOCYTES % (AUTO) 6.9 % (20.5-51.1); MEAN CORPUSCULAR HEMOGLOBIN 28 pg (27-31); MEAN CORPUSCULAR HGB CONC 33 g/dL (33-37); MEAN CORPUSCULAR VOLUME 87 fL (80-94); MONOCYTES # (AUTO) 0.5 K/uL (0.8-1.0); MONOCYTES % (AUTO) 5.1 % (1.7-9.3); NEUTROPHILS # (AUTO) 8.6 K/uL (1.8-7.7); NEUTROPHILS % (AUTO) 83.7 % (42.2-75.2); PLATELET COUNT (AUTO) 309 K/uL (140-450); RED BLOOD CELL COUNT(AUTO) 3.98 MIL/uL (4.20-5.40); RED CELL DISTRIBUTION WIDTH 15.1 % (11.6-13.7); WHITE BLOOD COUNT (AUTO) 10.3 K/uL (4.8-10.8)
[2017-07-25 13:07] LABS: ANION GAP 14.6 (8-16); ASPARTATE AMINOTRANSFERASE 34 U/L (15-37); CARBON DIOXIDE 23.2 mmol/L (21-32); CHLORIDE 107 mmol/L (98-107); CREATININE 1.3 mg/dL (0.6-1.3); GLUCOSE 286 mg/dL (74-106); POTASSIUM 4.8 mmol/L (3.5-5.1); SODIUM SERUM 140 mmol/L (136-145); TOTAL BILIRUBIN 0.4 mg/dL (0.0-1.0)
--- NOTE | 2017-07-25 13:07 | NUR ---
07/25/2017 RD INITIAL ASSESSMENT COMPLETED PLEASE REFER TO NUTRITION ASSESSMENT UNDER CARE ACTIVITY FOR ESTIMATED NUTRITIONAL NEEDS. CURRENT TUBE FEEDING IS PROVIDING 1200 KCALS AND 72 GM P-RO/DAY TO MEET 88% EST KCAL AND PRO NEEDS PER DAY. CONSIDER: DIABETISOURCE AC @ 60 ML/HR, TO PROVIDE 1728 KCAL AND 86 GM PRO PER DAY TO MEET 105% EST KCAL AND 100% EST PRO NEEDS PER DAY RD TO FOLLOW-UP IN 2-3 DAYS PATIENT IS HIGH RISK. GINGER VAZQUEZ RD Addendum: 07/25/17 at [address] spoke with frederick mcknight regarding recommendation for increase of tube feeding rate. provided print copy of xi recommendation, rn will f/up with
[2017-07-25 13:14] LABS: UREA NITROGEN, BLOOD 69 mg/dL (7-18)
--- NOTE | 2017-07-25 17:11 | NUR ---
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 WAITING FOR CALL BACK.
--- NOTE | 2017-07-25 17:41 | NUR ---
PAGED DR. HDZ. AWAITING FOR CALL BACK.
--- NOTE | 2017-07-25 17:50 | NUR ---
RECEIVED CALL BACK FROM TSAI. LEON TO FOLLOW MRSA PROTOCOL.
--- NOTE | 2017-07-25 18:58 | NUR ---
PT RESTING IN BED. NO RESPIRATORY DISTRESS NOTED. NO CHANGE IN LOC. FAMILY AT BEDSIDE. WILL CONTINUE TO MONITOR.
--- NOTE | 2017-07-25 19:20 | NUR ---
RECEIVED REPORT FROM MORNING RNFRANCOIS. VS STABLE AT THIS TIME. PT AFEBRILE. NONVERBAL. TRACH TO VENT WITH SETTINGS: FIO2 28%, TV500, AC 12, AND PEEP 5. PT LUNG SOUNDS COARSE. S1+S2 HEARD. PULSES ARE PALPABLE ON EXTREMITIES. SINUS RHYTHM ON MONITOR. NO SIGNS OF DISTRESS NOTED. FLACC 0. GTUBE IN PLACE. DIABETISOURCE RUNNING AT 60ML/HR. NO RESIDUAL NOTED. BOWEL SOUNDS ACTIVE. HILTON CATHETER IN PLACE. CLEAR AND YELLOW URINE DRAINING. PT HAS PERIPHERAL IV ACCESS IN RIGHT FOREARM 22G. PT ALSO HAS RIGHT IJ TRIPLE LUMEN CENTRAL LINE. ALL LINES PATENT, INTACT AND ASYMPTOMATIC. CALL LIGHT WITHIN REACH. HOB AT 30 DEGREES. BED AT LOW POSSIBLE POSITION. ALL SAFETY PRECAUTIONS IN PLACE. WILL CONTINUE TO MONITOR PT.
--- NOTE | 2017-07-25 19:28 | NUR ---
RCV'D PT ON MECHANICAL VENTILATOR WITH SETTINGS AC 12,500,+5,28%. PT IS TRACHED WITH SHILEY 6. VENT IS CONNECTED TO RED OUTLET. ALARMS ARE AUDIBLE. AMBU BAG AT BEDSIDE. NO SOB OR DISTRESS NOTED. PT IS NOT ALERT/QUIET. SXN'D SML AMT OF THIN WHITE SECRETIONS. WILL CONTINUE TO MONITOR.
--- NOTE | 2017-07-25 19:28 | NUR ---
ENDORSED TO NOC SHIFT RN FOR CONTINUITY OF CARE. PT ON STABLE CONDITION.
[2017-07-25] MEDS: SIMETHICONE 80 MG TAB.CHEW GT SCH (20:19)
[2017-07-25] MEDS: levETIRAcetam 100 MG/ML ORASYR GT SCH (20:20)
[2017-07-25] MEDS: BISACODYL 10 MG SUPP RC SCH (20:20)
[2017-07-25] MEDS: DOCUSATE 100 MG/10 ML UDC GT SCH (20:20)
--- NOTE | 2017-07-25 20:30 | NUR ---
SCHEDULED MEDICATIONS ADMINISTERED. PT TOLERATED WELL. NO GT RESIDUAL. CENTRAL LINE PATENT AND ASYMPTOMATIC. VS STABLE. NO SIGNS OF DISTRESS NOTED. WILL CONTINUE TO MONITOR PT.
--- NOTE | 2017-07-25 21:20 | NUR ---
VENT CHECK DONE. HELPED TRANSFER PT FROM BED 5 TO 7 WITH NO INCIDENT. NO SOB OR DISTRESS NOTED. PT IS QUITE. VENT IS CONNECTED TO RED OUTLET. ALARMS ARE AUDIBLE. AMBU BAG AT BEDSIDE. NO SOB OR DISTRESS NOTED. WILL CONTINUE TO MONITOR.
--- NOTE | 2017-07-25 23:45 | NUR ---
NO CHANGE IN CONDITION. VS STABLE AT THIS TIME. SR ON MONITOR. WILL CONTINUE TO MONITOR PT.
[2017-07-26] VITALS (11 sets, daily range): BP systolic 106–181; BP diastolic 53–85
[2017-07-26] MEDS: BLOOD GLUCOSE MONITORING 1 DEV DEV FS SCH ×4 (00:38→17:29)
[2017-07-26] MEDS: INSULIN LISPRO SLIDING SCALE 100 UNITS/ML VIAL SUBQ PRN ×4 (00:40→17:33)
--- NOTE | 2017-07-26 01:58 | NUR ---
FLACC 0. PT DOES NOT APPEAR TO BE IN ANY DISTRESS. VS STABLE. ALL SAFETY PRECAUTIONS ARE IN PLACE. CALL LIGHT WITHIN REACH. WILL CONTINUE TO MONITOR PT.
[2017-07-26] MEDS: NACL 0.9% 1,000 ML IV SCH ×2 (04:00→14:14)
--- NOTE | 2017-07-26 04:05 | NUR ---
PT TURNED AND REPOSITIONED. VS STABLE. TOLERATED BED BATH WELL. PT NOTED TO BE COUGHING. PT STILL CONNECTED TO FEEDING. NO RESIDUAL NOTED AT THIS TIME. NO CHANGE IN CONDITION. HOB KEPT AT 30 DEGREES. ALL SAFETY PRECAUTIONS ARE IN PLACE. WILL CONTINUE TO MONITOR PT.
[2017-07-26 04:59] LABS: BASOPHILS # (AUTO) 0.1 K/uL (0.00-0.22); BASOPHILS % (AUTO) 0.9 % (0.0-2.0); EOSINOPHILS # (AUTO) 0.4 K/uL (0-0.4); EOSINOPHILS % (AUTO) 3.5 % (0.0-4.0); HEMATOCRIT 32.7 % (36-48); HEMOGLOBIN 10.5 g/dL (12.0-16.0); LYMPHOCYTES # (AUTO) 1.2 K/uL (2.5-16.5); LYMPHOCYTES % (AUTO) 11.4 % (20.5-51.1); MEAN CORPUSCULAR HEMOGLOBIN 28 pg (27-31); MEAN CORPUSCULAR HGB CONC 32 g/dL (33-37); MEAN CORPUSCULAR VOLUME 87 fL (80-94); MONOCYTES # (AUTO) 0.3 K/uL (0.8-1.0); MONOCYTES % (AUTO) 2.9 % (1.7-9.3); NEUTROPHILS # (AUTO) 8.9 K/uL (1.8-7.7); NEUTROPHILS % (AUTO) 81.3 % (42.2-75.2); PLATELET COUNT (AUTO) 293 K/uL (140-450); RED BLOOD CELL COUNT(AUTO) 3.78 MIL/uL (4.20-5.40); RED CELL DISTRIBUTION WIDTH 15.5 % (11.6-13.7); WHITE BLOOD COUNT (AUTO) 10.9 K/uL (4.8-10.8)
[2017-07-26] MEDS: PIPER/TAZO 2.25GM/D5W PREMIX 50 ML IV SCH ×3 (05:00→20:32)
[2017-07-26] MEDS: LEVOTHYROXINE 0.075 MG TAB GT SCH (06:20)
[2017-07-26 06:48] LABS: ALBUMIN 1.8 g/dL (3.4-5.0); ANION GAP 13.2 (8-16); ASPARTATE AMINOTRANSFERASE 24 U/L (15-37); CARBON DIOXIDE 22.8 mmol/L (21-32); CHLORIDE 110 mmol/L (98-107); GLUCOSE 232 mg/dL (74-106); SODIUM SERUM 142 mmol/L (136-145); TOTAL BILIRUBIN 0.4 mg/dL (0.0-1.0); UREA NITROGEN, BLOOD 50 mg/dL (7-18)
--- NOTE | 2017-07-26 07:05 | NUR ---
PT SEEN AND EXAMINED BY DR. HDZ. WILL FOLLOW UP ON ORDERS.
--- NOTE | 2017-07-26 07:20 | NUR ---
REPORT GIVEN TO FAUZIA LOTT FOR CONTINUITY OF CARE. PT IN STABLE CONDITION AT THIS TIME.
--- NOTE | 2017-07-26 07:21 | NUR ---
RECIVED PT ON VENT WITH SETTINGS CHARTED BREATH SOUNDS PRESENT BILAT SCATTERD RALES SXN PT WITH MIN AMT CLEAR SECS AMBU BAG AT BEDSIDE TRACH SECURE VENT PLUGGED INTO RED OUTLET WILL CONTINUE TO MONITOR PT ON VENT
--- NOTE | 2017-07-26 07:30 | NUR ---
RECEIVED REPORT FROM WINDOW SYSTEMS ADMINISTRATOR RN. PT RESTING IN BED, NONVERBAL, DOES NOT FOLLOW COMMANDS, NO SPONTANEOUS EYES OPENING NOTED. NSR ON MONITOR. S1 +S2 HEARD. ON TRACH TO VENT AC 12 FIO2 35% TV 500 PEEP 5. RT IJ TRIPLE LUMEN AND PERIPHERAL LINE ON RIGHT FOREARM 22G ASYMOTOMATIC, PATENT AND INTACT. GTUBE ON RIGHT UPPER QUADRANT, NO RESIDUALS. ABDOMEN SOFT ROUND AND NON-TENDER. ACTIVE BOWEL SOUND PRESENT. SKIN DRY AND WARM TO TOUCH. HILTON CATH IN PLACE DRAINING CLEAR YELLOW URINE TO GRAVITY DRAINAGE BAG. HOB ELEVATED. BED IN LOW POSITION, CALL LIGHT WITHIN REACH. WILL CONTINUE TO MONITOR.
--- NOTE | 2017-07-26 08:50 | NUR ---
PT TRANSFERRED TO TELEMETRY ROOM 122B. PT IS IN STABLE CONDITION. NO ACUTE DISTRESS NOTED AT THIS TIME. REPORT GIVEN TO FAUZIA LUEVANO AT BEDSIDE.
--- NOTE | 2017-07-26 08:51 | NUR ---
PT ARRIVED TO THE UNIT WITH ARMAMENT MECHANIC, 2 R/T. APPLIED TELE BOX. PT RESTING IN BED, NONVERBAL, DOES NOT FOLLOW COMMANDS, NO SPONTANEOUS EYES OPENING NOTED. NSR ON MONITOR. S1 +S2 HEARD. ON TRACH TO VENT AC 12 FIO2 35% TV 500 PEEP 5. RT IJ TRIPLE LUMEN AND PERIPHERAL LINE ON RIGHT FOREARM 22G. ASYMPTOMATIC, PATENT AND INTACT. GTUBE ON RIGHT UPPER QUADRANT, NO RESIDUAL. SL. ABDOMEN SOFT ROUND AND NON-TENDER. ACTIVE BOWEL SOUND PRESENT. SKIN DRY AND WARM TO TOUCH. HILTON CATH IN PLACE DRAINING 400ML CLEAR YELLOW URINE TO GRAVITY DRAINAGE BAG. HOB ELEVATED. BED IN LOW POSITION, CALL LIGHT WITHIN REACH. WILL CONTINUE TO MONITOR.
[2017-07-26] MEDS ORDERED: CHLORHEXADINE GLUC 2% CLOTH TP SCH ×4 (09:00→18:00)
[2017-07-26] MEDS ORDERED: MUPIROCIN 2% OINT 22 GM TUBE TP SCH ×3 (09:00→18:00)
[2017-07-26] MEDS: DOCUSATE 100 MG/10 ML UDC GT SCH ×2 (10:26→20:32)
[2017-07-26] MEDS: SIMETHICONE 80 MG TAB.CHEW GT SCH ×2 (10:27→20:36)
[2017-07-26] MEDS: PANTOPRAZOLE 40 MG INJ VIAL IVP SCH (10:28)
[2017-07-26] MEDS: levETIRAcetam 100 MG/ML ORASYR GT SCH ×2 (10:29→20:32)
[2017-07-26] MEDS: LACTOBACILLUS RHAMNOSUS GG 1 EACH CAP PO SCH (10:29)
--- NOTE | 2017-07-26 10:30 | NUR ---
ADMINISTERED MORNING MEDS VIA GTUBE. CHECKED GTUBE FOR PLACEMENT, PATENCY, RESIDUAL. TOTAL FLUIDS: 300ML. PT TOLERATED WELL. HUNG NEW IV BAG. WILL CONTINUE TO MONITOR PT.
--- NOTE | 2017-07-26 12:09 | NUR ---
CM NOTE INITIAL REVIEW FAXED TO [facility] [phone] IBIS # [phone]
--- NOTE | 2017-07-26 12:20 | NUR ---
PT RESTING COMFORTABLY. NO SIGNS OF DISTRESS. WILL CONTINUE TO MONITOR PT.
[2017-07-26] MEDS ORDERED: VANCOMYCIN 1GM/DEXT 5% PREMIX 200 ML IV SCH (14:00)
--- NOTE | 2017-07-26 14:15 | NUR ---
DECREASED FIO2 TO .30
--- NOTE | 2017-07-26 14:21 | NUR ---
ADMINISTERED VANCO. PT TOLERATING WELL. CHECKED ALL THE FLUIDS AND TUBES, MADE SURE ALL LABELS ARE IN PLACE. NOTED NO DISTRESS. PT'S NEEDS ALL MET. WAITING ON GTUBE FEEDING BAG FROM FNS.
--- NOTE | 2017-07-26 14:35 | NUR ---
GINGER HYDRAULIC REPAIRER STOPPED BY WITH DIABETISOURCE. ADMINISTERED. PT TOLERATING WELL. FEEDINML/HR, 200ML WATER FLUSH Q 6 HR. WILL CONTINUE TO MONITOR PT.
--- NOTE | 2017-07-26 17:33 | NUR ---
GAVE 4 UNITS OF HUMALOG FOR 213 BS. PT TOLERATED WELL. PT RESTING COMFORTABLY. NO SIGNS OF DISTRESS. WILL CONTINUE TO MONITOR PT.
--- NOTE | 2017-07-26 19:21 | NUR ---
ENDORSED PT TO THE AUDIT PRACTICE INTERN RN AT BEDSIDE FOR CONTINUITY OF CARE. PT IS IN STABLE CONDITION.
--- NOTE | 2017-07-26 19:25 | NUR ---
RECEIVED A REPORT FROM MORNING NURSE, FAUZIA LUEVANO. PT NONVERBAL AND UNABLE TO FOLLOW COMMANDS. PERRL. TRACH TO VENT AC12, FIO2 28, TV 500, PEEP 5. BILATERAL LUNG SOUNDS CLEAR UPPER BUT DIMINISHED LOWER LOBES. RR EVEN AND UNLABORED. RIGHT FA 22G AND RIJ CENTRAL LINE WITH TRIPLE LUMEN ALL PATENT AND ASYMPTOMATIC. BOWEL SOUNDS ACTIVE. GT TO TUBE FEEDING. ZERO RESIDUAL NOTED. AFEBRILE. ON TELEMETRY CARDIAC MONITORING AND SR NOTED. 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 HILTON CATHETER WITH CLEAR YELLOW URINE DRAINING. CAP REFILL WITHIN 3 SEC. FLACC 0. CALL LIGHT IN REACH. HOB ELEVATED 30 DEGREES. BED KEPT TO THE LOWEST POSITION. WILL CONTINUE TO MONITOR.
--- NOTE | 2017-07-26 19:38 | NUR ---
RECEIVED PT STABLE ON VENT SUPPORT AT DOCUMENTED SETTINGS, SUCTIONED SMALL AMOUNTS OF THICK CLEAR SECRETIONS, NO RESP DISTRESS OR SOB NOTED AT THIS TIME, SHILEY 6 TRACH SECURED/PATENT/MIDLINE, ALARMS SET AND AUDIBLE, AMBU BAG AT BEDSIDE, VENT PLUGGED INTO RED OUTLET, CONT PULSE OX ON, WILL CONT TO MONITOR.
--- NOTE | 2017-07-26 20:00 | NUR ---
REPOSITIONED. ORAL VAP CARE PROVIDED. FLACC 0. AFEBRILE. VS WITHOUT ACUTE DISTRESS NOTED. WILL CONTINUE TO MONITOR.
[2017-07-26] MEDS: BISACODYL 10 MG SUPP RC SCH (20:32)
[2017-07-27] MEDS: BLOOD GLUCOSE MONITORING 1 DEV DEV FS SCH ×3 (00:08→12:00)
[2017-07-27] MEDS: INSULIN LISPRO SLIDING SCALE 100 UNITS/ML VIAL SUBQ PRN ×3 (00:12→13:32)
--- NOTE | 2017-07-27 00:15 | NUR ---
REPOSITIONED. VAP ORAL CARE PROVIDED. QU=518. INSULIN COVERAGE ADMINISTERED PER SLIDING SCALE. FLACC 0. AFEBRILE. WILL CONTINUE TO MONITOR.
[2017-07-27 00:31] VITALS: BP 138/68
[2017-07-27] MEDS: NACL 0.9% 1,000 ML IV SCH ×2 (01:19→10:26)
--- NOTE | 2017-07-27 02:00 | NUR ---
REPOSITIONED AND SUCTIONED SMALL AMOUNT OF CLEAR SPUTUM THROUGH TRACH. NO CHANGE IN VENT SETTING. FLACC 0. WILL CONTINUE TO MONITOR.
[2017-07-27 04:00] VITALS: BP 135/59
--- NOTE | 2017-07-27 04:00 | NUR ---
REPOSITIONED AND ORAL VAP CARE PROVIDED. AFEBRILE. FLACC 0. VS WITHOUT ACUTE DISTRESS. NO CHANGE IN VENT SETTING. GT WITH ZERO RESIDUAL. HOB KEPT ELEVATED TO 30 DEGREES. RR EVEN AND UNLABORED. ALL SAFETY PRECAUTIONS ARE IN PLACE. WILL CONTINUE TO MONITOR.
[2017-07-27] MEDS: PIPER/TAZO 2.25GM/D5W PREMIX 50 ML IV SCH ×2 (04:19→13:19)
--- NOTE | 2017-07-27 06:00 | NUR ---
PROVIDED MORNING CARE, BED BATH, HILTON CATHETER CARE, ORAL CARE. TOLERATED WELL. VS WITHOUT ACUTE DISTRESS. WILL CONTINUE TO MONITOR.
[2017-07-27] MEDS: LEVOTHYROXINE 0.075 MG TAB GT SCH (06:06)
--- NOTE | 2017-07-27 06:20 | NUR ---
MORNING LAB DRAWN ORDERED.
[2017-07-27 07:04] LABS: ANION GAP 12.3 (8-16); CARBON DIOXIDE 24.2 mmol/L (21-32); CHLORIDE 108 mmol/L (98-107); CREATININE 0.9 mg/dL (0.6-1.3); GLUCOSE 234 mg/dL (74-106); POTASSIUM 3.5 mmol/L (3.5-5.1); SODIUM SERUM 141 mmol/L (136-145); UREA NITROGEN, BLOOD 30 mg/dL (7-18)
--- NOTE | 2017-07-27 07:21 | NUR ---
PT RECEIVED ON VENT SETTINGS FIO2 28% VT 500 RR 12 PEEP 5. VENT ON RED PLUG. AMBUBAG IN ROOM. PT DOESNT NEED SUCTIONING AT THIS TIME. PT HAS SHILEY 6 AND IS SECURED. VENT ALARMS ARE ON A FUNCTIONING.
--- NOTE | 2017-07-27 07:24 | NUR ---
REPORT GIVEN TO MORNING NURSEMARIA GUADALUPE RN FOR CONTINUITY OF CARE. VS STABLE. ALL SAFETY PRECAUTIONS ARE IN PLACE.
--- NOTE | 2017-07-27 07:25 | NUR ---
RECEIVED REPORT FROM BOX FOLDING MACHINE OPERATOR NURSE. PATIENT LYING DOWN IN BED SLEEPING, AROUSABLE BY SHAKING. RESPIRATIONS EVEN, TRACH TO VENTILATOR DEPENDENT. VENT SETTINGS: AC:12, FIO2:28%, TIDAL:500, PEEP:5. SKIN IS INTACT. APHASIC, NON-VERBAL. LUNGS CTA ON ALL LOBES. HILTON CATHETER IN PLACE DRAINING CLEAR, YELLOW URINE. IV SITE INTACT, PATENT, AND INFUSING IVF PER ORDERS. GTUBE IN PLACE WITH CONTINUOUS FEEDING RUNNING. GTUBE SITE INTACT, PATENT. ABDOMEN SOFT, NON-DISTENDED. REVIEWED PLAN OF CARE WITH PATIENT. PATIENT UNABLE TO COMPREHEND. SAFETY MEASURES IN PLACE, CALL LIGHT WITHIN REACH, SEIZURE PRECAUTIONS IN PLACE. WILL CONTINUE TO MONITOR. Addendum: 07/27/17 at 1034 by Quoc Parisi RN ABDOMEN SOFT, LARGE, ASCITES NOTED.
[2017-07-27 08:00] VITALS: BP 140/66
--- NOTE | 2017-07-27 08:40 | NUR ---
RESPIRATORY THERAPIST AT BEDSIDE. WILL CONTINUE TO MONITOR.
[2017-07-27] MEDS ORDERED: POLYETHYLENE GLYCOL 17 GM/PKT GT SCH (09:00)
[2017-07-27 09:39] LABS: HEMATOCRIT 31.2 % (36-48); HEMOGLOBIN 10.3 g/dL (12.0-16.0); MEAN CORPUSCULAR HEMOGLOBIN 28 pg (27-31); MEAN CORPUSCULAR HGB CONC 33 g/dL (33-37); MEAN CORPUSCULAR VOLUME 87 fL (80-94); RED BLOOD CELL COUNT(AUTO) 3.61 MIL/uL (4.20-5.40); WHITE BLOOD COUNT (AUTO) 9.8 K/uL (4.8-10.8)
[2017-07-27 09:40] LABS: BASOPHILS % (AUTO) 0.6 % (0.0-2.0); EOSINOPHILS # (AUTO) 0.5 K/uL (0-0.4); LYMPHOCYTES # (AUTO) 1.3 K/uL (2.5-16.5); LYMPHOCYTES % (AUTO) 13.4 % (20.5-51.1); MONOCYTES # (AUTO) 0.6 K/uL (0.8-1.0); MONOCYTES % (AUTO) 6.3 % (1.7-9.3); NEUTROPHILS # (AUTO) 7.3 K/uL (1.8-7.7); NEUTROPHILS % (AUTO) 74.7 % (42.2-75.2); PLATELET COUNT (AUTO) 263 K/uL (140-450); RED CELL DISTRIBUTION WIDTH 16.3 % (11.6-13.7)
[2017-07-27 09:41] LABS: BASOPHILS # (AUTO) 0.1 K/uL (0.00-0.22)
[2017-07-27] MEDS: DOCUSATE 100 MG/10 ML UDC GT SCH (10:06)
[2017-07-27] MEDS: PANTOPRAZOLE 40 MG INJ VIAL IVP SCH (10:06)
[2017-07-27] MEDS: SIMETHICONE 80 MG TAB.CHEW GT SCH (10:06)
[2017-07-27] MEDS: LACTOBACILLUS RHAMNOSUS GG 1 EACH CAP PO SCH (10:06)
[2017-07-27] MEDS: levETIRAcetam 100 MG/ML ORASYR GT SCH (10:06)
--- NOTE | 2017-07-27 10:34 | NUR ---
PATIENT LYING IN BED SLEEPING, AROUSABLE BY VOICE AND SHAKING. ASSISTED CHEMICAL LAB TECHNICIAN IN CLEANING AND REPOSITIONING PATIENT. SCHEDULED MEDICATIONS DUE GIVEN. NEW FEEDING FORMULA BAG HANGED PER MD ORDERS. SAFETY MEASURES IN PLACE, CALL LIGHT WITHIN REACH, SEIZURE PRECAUTIONS IN PLACE, FALL PREVENTIONS IN PLACE. WILL CONTINUE TO MONITOR.
[2017-07-27 12:00] VITALS: BP 133/65
--- NOTE | 2017-07-27 12:24 | NUR ---
CM NOTE RECEIVED ORDER TO DISCHARGE BACK TO [facility]. [facility] ZACH BAUMANN AWARE PH# [phone]. PER CHIP OF [facility] PATIENT IS GOING TO [address] HDZ NUMBER TO CALL FOR REPORT [phone]. PER JESS OF [facility] PH# [phone], PATIENT WILL BE PICKED UP BY [facility] 1430 TIME TODAY GOING TO [facility]. MARIA GUADALUPE CAGE AWARE.
[2017-07-27] MEDS ORDERED: VANC1PLA7 IV (12:41)
[2017-07-27] MEDS ORDERED: PIPE50SO5 IV (12:42)
--- NOTE | 2017-07-27 13:45 | NUR ---
PATIENT LYING IN BED SLEEPING, AROUSABLE BY VOICE. NO DISTRESS NOTED. VENTILATOR SETTING UNCHANGED. CONDITION UNCHANGED. SCHEDULED MEDICATIONS DUE GIVEN. PATIENT TO BE TRANSFERRED BACK [place] [facility] [place] WITH [facility] TIME AT 1430. WILL CONTINUE TO MONITOR.
--- NOTE | 2017-07-27 14:06 | NUR ---
DISCHARGE INSTRUCTIONS PROVIDED TO PATIENT. PATIENT UNABLE TO COMPREHEND. HILTON CATHETER, RIGHT IJ TRIPLE LUMEN AND GTUBE TO REMAIN UPON TRANSFER TO [facility] DUE TO CONTINUED IV ANTIBIOTICS X 14 DAYS. ID BANDS REMOVED. ALL BELONGINGS WITH PATIENT. PATIENT CHANGED AND READY TO GO TO [facility]. AWAITING [facility] TRANSPORT TO ARRIVE AT 1430 FOR TRANSFER TO [facility]. WILL CONTINUE TO MONITOR.
--- NOTE | 2017-07-27 14:26 | NUR ---
CALLED [facility] AT [phone] TO GIVE REPORT FOR PATIENT TRANSFER. GAVE REPORT TO CAMDEN WHEELER RN. ANSWERED ALL OF CAMDEN WHEELER'S QUESTIONS REGARDING PATIENT TRANSFER AND STATUS. ID BANDS REMOVED. ALL BELONGINGS WITH PATIENT. AWAITING FOR [facility] TRANSPORT TO ARRIVE AT 1430 TO TAKE PATIENT BACK TO [facility].
--- NOTE | 2017-07-27 14:39 | NUR ---
[facility] TRANSPORT ON [facility] UNIT. GAVE REPORT TO TRANSPORTER AND ANSWERED ALL THEIR QUESTIONS REGARDING PATIENT. PATIENT DISCHARGED AT THIS TIME TO [facility] BY [facility]SPORT IN STABLE CONDITION.
--- NOTE | 2017-07-27 16:02 | NUR ---
CM NOTE DISCHARGE SUMMARY FAXED TO [facility] [phone] [facility] # [phone]
== END 2017-07-27 14:40 | disposition home or self-care (01) | DRG 720 ==
LOC: MED 17:59 → EDBEDREQSVC 20:17 → MIC 20:43 → MTU 07-26 08:50
PROVIDERS: ADMIT Family Medicine; ATTEND Family Medicine
PROC: 05HM33Z Insertion of Infusion Device into Right Internal Jugular Vein, Percutaneous Approach (ICD-10-PCS; principal; 2017-07-24)
PROC: 5A1945Z Respiratory Ventilation, 24-96 Consecutive Hours (ICD-10-PCS; 2017-07-24)
PROC: B543ZZA Ultrasonography of Right Jugular Veins, Guidance (ICD-10-PCS; 2017-07-24)
PROC: 30233N1 Transfusion of Nonautologous Red Blood Cells into Peripheral Vein, Percutaneous Approach (ICD-10-PCS; 2017-07-24)
DX: A41.9 Sepsis, unspecified organism (principal); J96.20 Acute and chronic respiratory failure, unspecified whether with hypoxia or hypercapnia; E43 Unspecified severe protein-calorie malnutrition; R65.21 Severe sepsis with septic shock; J18.9 Pneumonia, unspecified organism; N17.9 Acute kidney failure, unspecified; Z99.11 Dependence on respirator [ventilator] status; Z93.0 Tracheostomy status; F03.90 Unspecified dementia, unspecified severity, without behavioral disturbance, psychotic disturbance, mood disturbance, and anxiety; E11.649 Type 2 diabetes mellitus with hypoglycemia without coma; Z66 Do not resuscitate; K56.7 Ileus, unspecified; D64.9 Anemia, unspecified; N39.0 Urinary tract infection, site not specified; I10 Essential (primary) hypertension; G40.909 Epilepsy, unspecified, not intractable, without status epilepticus; E03.9 Hypothyroidism, unspecified; Z93.1 Gastrostomy status; Z79.899 Other long term (current) drug therapy; Z86.73 Personal history of transient ischemic attack (TIA), and cerebral infarction without residual deficits; Z68.29 Body mass index [BMI] 29.0-29.9, adult; Z74.01 Bed confinement status
CPT/HCPCS: 36415; 36600; 51702; 71045; 80048; 80053; 80202; 81001; 82140; 82550; 82553; 82803; 82948; 83605; 83690; 84484; 85025; 85610; 85730; 86886; 86900; 86901; 86920; 87040; 87070; 87081; 87086; 87186; 87205; 89220; 94002; 94003; 96374; 96375; 96376; 99291; C9113; J1642; J1815; J2543; J3370; J3490; J7030; J7060; P9016; Q0092

== ENCOUNTER 2017-10-03 07:55 | Inpatient (IN) | payer OTHER, MEDICARE ==
[~2017-10-03] VITALS: Ht 172.7 cm; Wt 69.4 kg
[2017-10-03] VITALS (14 sets, daily range): BP systolic 107–159; BP diastolic 59–86
[~2017-10-03 07:55] MED LIST changes: +PIPE50SO5 IV; +VANC1PLA7 IV
--- NOTE | 2017-10-03 07:59 | NUR ---
PT JONATHANA ALS TO BED 1
--- NOTE | 2017-10-03 08:00 | NUR ---
PATIENT BIBA FOR SEIZURE LASTING 20 MIN. PATIENT IS ON ISOLATION. PATIENT PRESENTS WITH TRACH AND VENT. HYPOTENSIVE, BRADYCARDIC. PATIENT HAS INDWELLING CATHETER FROM FACILITY. PITTING EDEMA PRESENT IN BILATERAL FEET, +1. LUNG SOUNDS WHEEZING IN UPPER LOBES UPON EXPIRATION. SKIN IS PINK/WARM/DRY; PATIENT POSITIONED FOR COMFORT; HOB ELEVATED; BEDRAILS UP X2; BED DOWN. ER MD MADE AWARE OF PT STATUS.
[2017-10-03] MEDS ORDERED: LORazepam 2 MG/ML VIAL IVP ONE ×2 (08:05→08:15)
[2017-10-03] MEDS ORDERED: NACL 0.9% 1,000 ML IV ONE ×2 (08:05→09:20)
[2017-10-03] MEDS ORDERED: LORazepam 2 MG/ML VIAL ONE (08:09)
--- NOTE | 2017-10-03 08:10 | NUR ---
SEIZURE STARTED AT 0809, DR. CHIU NOTIFIED. ORDERS RECEIVED.
--- NOTE | 2017-10-03 08:37 | NUR ---
xray by bedside
[2017-10-03 08:48] LABS: BASOPHILS # (AUTO) 0.1 K/uL (0.00-0.22); BASOPHILS % (AUTO) 1.1 % (0.0-2.0); EOSINOPHILS # (AUTO) 0.9 K/uL (0-0.4); EOSINOPHILS % (AUTO) 11.4 % (0.0-4.0); HEMATOCRIT 22.9 % (36-48); HEMOGLOBIN 7.4 g/dL (12.0-16.0); LYMPHOCYTES # (AUTO) 0.9 K/uL (2.5-16.5); LYMPHOCYTES % (AUTO) 12.1 % (20.5-51.1); MEAN CORPUSCULAR HEMOGLOBIN 28 pg (27-31); MEAN CORPUSCULAR HGB CONC 32 g/dL (33-37); MEAN CORPUSCULAR VOLUME 88.1 fL (80-94); MONOCYTES # (AUTO) 0.4 K/uL (0.8-1.0); MONOCYTES % (AUTO) 5.7 % (1.7-9.3); NEUTROPHILS # (AUTO) 5.4 K/uL (1.8-7.7); NEUTROPHILS % (AUTO) 69.7 % (42.2-75.2); PLATELET COUNT (AUTO) 228 K/uL (140-450); RED CELL DISTRIBUTION WIDTH 17.4 % (11.6-13.7); WHITE BLOOD COUNT (AUTO) 7.7 K/uL (4.8-10.8)
[2017-10-03 08:51] LABS: APPEARANCE,URINE HAZY (CLEAR); BILIRUBIN,URINE NEGATIVE (NEGATIVE); COLOR,URINE YELLOW (YELLOW); LEUKOCYTE ESTERASE ,URINE 3+ (NEGATIVE); NITRITE, URINE NEGATIVE (NEGATIVE); PH,URINE 5.5 (5.0-9.0); UGLUCOSE TRACE (NEGATIVE)
[2017-10-03 09:02] LABS: BLOOD, URINE 1+ (NEGATIVE); RBC,URINE 0-5 (RARE) /HPF (0-5); WBC,URINE 6-15 (FEW) /HPF (0-5)
--- NOTE | 2017-10-03 09:15 | NUR ---
no seizure like activity note at this time. patient is bradycardiac. er md duron notified. will continue to monitor.
[2017-10-03] MEDS ORDERED: PIPERACILLIN/TAZOBACTAM 3.375 GM in DEXTROSE 5% 50 ML IV ONE (09:20)
[2017-10-03] MEDS ORDERED: VANCOMYCIN 1,000 MG in DEXTROSE 5% 250 ML IV ONE (09:20)
[2017-10-03] MEDS ORDERED: PIPERACILLIN/TAZOBACTAM 3.375 GM VIAL IV ONE (09:28)
[2017-10-03] MEDS ORDERED: VANCOMYCIN 1,000 MG VIAL ONE (09:28)
[2017-10-03 09:59] LABS: ANION GAP 17.2 (8-16); ASPARTATE AMINOTRANSFERASE 28 U/L (15-37); CARBON DIOXIDE 20.3 mmol/L (21-32); CHLORIDE 117 mmol/L (98-107); CREATININE 2.1 mg/dL (0.6-1.3); GLUCOSE 101 mg/dL (74-106); POTASSIUM 3.5 mmol/L (3.5-5.1); SODIUM SERUM 151 mmol/L (136-145); TOTAL BILIRUBIN 0.2 mg/dL (0.0-1.0)
[2017-10-03 10:01] LABS: UREA NITROGEN, BLOOD 92 mg/dL (7-18)
[2017-10-03] MEDS ORDERED: NACL 0.9% 1,000 ML IV SCH (10:14)
--- NOTE | 2017-10-03 10:14 | NUR ---
PT CAME TO ER TRACHED WITH SHILEY 6 DCT. PT PLACED ON VENT WITH SAME SETTINGS AC 12,500,+5,60%. ABG DONE WITH NO INCIDENT. RESULTS GIVEN TO MD CHIU. NO NEW ORDERS. DECREASED FIO2 TO 40% SPO2 IS 96%. VENT IS CONNECTED TO RED OUTLET. ALARMS ARE AUDIBLE. AMBU BAG AT BEDSIDE. NO SOB OR DISTRESS NOTED. WILL CONTINUE TO MONITOR.
[2017-10-03] MEDS ORDERED: ONDANSETRON 4 MG/2 ML VIAL IVP PRN (10:15)
[2017-10-03] MEDS ORDERED: DEXTROSE 50% 50 ML SYR IVP PRN (10:15)
[2017-10-03] MEDS ORDERED: VANCOMYCIN PER PHARMACY MC PRN (10:15)
[2017-10-03] MEDS ORDERED: ALBUTEROL 0.083% 2.5 MG/3 ML NEBU IH PRN (10:15)
--- NOTE | 2017-10-03 11:05 | NUR ---
RECEIVED PT FROM ER VIA GURNEY. PT WAS UNRESPONSIVE TO STIMULI. PUPILS NONREACTIVE TO LIGHT. ON TRACH TO VENT AC 12 FIO2 40% TV 500 PEEP 5. LUNGS SOUND CLEAR ON AUSCULTATION. ABDOMEN SOFT, ROUND, DISTENDED, NON-TENDER. DR. HOGUE MADE AWARE. ACTIVE BOWEL SOUND PRESENT. GTUBE IN RIGHT UPPER QUADRANT. 0 RESIDUAL. PERIPHERAL LINE ON LEFT HAND 20 H, RIGHT FOREARM 22 G. INTACT. NS RUNNING AT 100 ML/HR. BLE EDEMATOUS. SKIN DISCOLORATION ALL OVER THE BODY. KEPT HOB ELEVATED. BED IN LOW POSITION LOCKED. WILL CONTINUE TO MONITOR.
--- NOTE | 2017-10-03 11:13 | NUR ---
PT TRANSFERRED FROM ER TO ICU WITH NO INCIDENT.
--- NOTE | 2017-10-03 11:30 | NUR ---
PT SEEN BY DR. HOGUE. WILL FOLLOW UP ON ORDER.
--- NOTE | 2017-10-03 11:30 | NUR ---
Patient will be admitted to care of DR. HOGUE. Admited to ICU. Will go to room 8. Belongings list completed. Report to FAUZIA PARRISH.
--- NOTE | 2017-10-03 11:57 | NUR ---
RECEIVED ON A [employer] R860 VENTILATOR PLUGGED INTO RED OUTLET TOLERATING WELL WITHOUT ADVERSE REACTIONS NOTED TO A RANDELL DCT #8 SECURED WITH A ERIKA TRACH TIE CUFF PRESSURE CHECKED NOTED AMBU BAG NOTED AT HOB BREATH SOUNDS CLEAR BILATERAL WITH GOOD CHEST RISE AND AERATION THROUGHOUT AIRWAY PATENT
[2017-10-03] MEDS: DEXT 5% / NACL 0.45% 1,000 ML IV SCH ×3 (12:08→23:24)
[2017-10-03] MEDS: BLOOD GLUCOSE MONITORING 1 DEV DEV FS SCH ×3 (12:13→21:17)
--- NOTE | 2017-10-03 12:24 | NUR ---
MRSA NARES SENT TO THE LAB.
--- NOTE | 2017-10-03 12:38 | NUR ---
DAUGHTER AT BED SIDE.
[2017-10-03] MEDS ORDERED: PIPERACILLIN/TAZOBACTAM 2.25 GM in DEXTROSE 5% 50 ML IV SCH (13:00)
[2017-10-03] MEDS: LORazepam 2 MG/ML VIAL IVP PRN (13:37)
--- NOTE | 2017-10-03 13:41 | NUR ---
PT WAS AGITATED. ATIVAN 2 MG IVP PER ORDER ADMINISTERED. FAMILY AT BEDSIDE.
--- NOTE | 2017-10-03 14:07 | NUR ---
PT SEEN BY DR. MURILLO. UPDATED PATIENT CONDITION AND MADE AWARE ABOUT EPISODES OF APNEA SAID CONTINUE WITH CURRENT PLAN OF CARE. WILL FOLLOW UP ON ORDER.
--- NOTE | 2017-10-03 14:21 | NUR ---
NO DISTRESS NOTED DEEP TRACHEAL SUCTION FOR SMALL THIN PALE WHITE SECRETIONS AIRWAY PATENT
--- NOTE | 2017-10-03 14:51 | NUR ---
PAGED AND RECEIVED CALL BACK FROM DR. HOGUE. MADE AWARE ABOUT HIGH BP 156/108 AND BS 61 AND PT TWITCHING FACE. WILL FOLLOW UP ON ORDER.
[2017-10-03] MEDS ORDERED: hydrALAZINE 20 MG/ML VIAL IVP PRN (14:55)
--- NOTE | 2017-10-03 15:30 | NUR ---
NO DISTRESS NOTED GOOD CHEST RISE DEEP TRACHEAL SUCTION FOR MODERATE THICK YELLOW SECRETIONS AIRWAY PATENT
--- NOTE | 2017-10-03 16:00 | NUR ---
DR. HERNANDEZ NOTIFIED ABOUT FLUCTUATING BP 44/38 TO 164/88 AND INCREASED BP 164/82 NOW. HOLD ANTIHYPERTENSIVE FOR NOW. MONITOR BP PER DR HERNANDEZ.
--- NOTE | 2017-10-03 16:39 | NUR ---
PT RESTING IN BED COMFORTABLY. NO ACUTE RESPIRATORY DISTRESS NOTED. NO CHANGE IN LOC. WILL CONTINUE TO MONITOR.
--- NOTE | 2017-10-03 17:10 | NUR ---
TRANSFERRED PATIENT TO RADIOLOGY FOR CT SCAN OF HEAD REMOVED PATIENT FROM VENTILATOR AND PLACED SUPPLEMENTAL OXYGEN E-TANK AT 15LPM VIA AMBU BAG TO INLINE SUCTION CATHETER/TRACH BAG DEPRESSION EVERY 6-8 SECONDS SATURATION 97% TOLERATED PROCEDURE WELL WITHOUT ADVERSE REACTIONS NOTED
--- NOTE | 2017-10-03 17:27 | NUR ---
PATIENT RETURNED FROM RADIOLOGY PLACED BACK ON SAME VENTILATOR SETTINGS
--- NOTE | 2017-10-03 17:44 | NUR ---
AT 1716 PT TAKEN TO RADIOLOGY FOR CT OF HEAD SAFELY ON STABLE CONDITION VS BP 138/83, P 82 SPO2 99%. RETURN BACK TO ICU AT 1730 SAFELY WITH STABLE CONDITION.
--- NOTE | 2017-10-03 17:47 | NUR ---
US TECH AT BEDSIDE FOR US KIDNEY.
[2017-10-03 18:54] LABS: ANION GAP 15.3 (8-16); CHLORIDE 115 mmol/L (98-107); CREATININE 2.1 mg/dL (0.6-1.3); GLUCOSE 132 mg/dL (74-106); POTASSIUM 3.3 mmol/L (3.5-5.1); SODIUM SERUM 149 mmol/L (136-145)
[2017-10-03 18:59] LABS: UREA NITROGEN, BLOOD 83 mg/dL (7-18)
--- NOTE | 2017-10-03 19:30 | NUR ---
RECEIVED REPORT FROM MORNING RN FOR CONTINUITY OF CARE. VS STABLE AT THIS TIME. PT AFEBRILE. OPES EYES SPONTANEOUSLY. TRACH TO VENT WITH SETTINGS FIO2 40%, TV 500, R12, AND PEEP 5. LUNG SOUNDS DIMINISHED. BREATHING LABORED AND RT AWARE. S1+S2 HEARD. PT SINUS RHYTHM. PULSES PALPATED IN ALL EXTREMITIES. GTUBE IN PLACE. CURRENTLY NPO AND NO RESIDUAL NOTED. BOWEL SOUNDS ACTIVE IN ALL QUADRANTS. ABDOMEN ROUND, SOFT AND SLIGHTLY DISTENDED. HILTON CATHETER IN PLACE. DRAINING YELLOW URINE. PT HAS PERIPHERAL IV ACCESS ON RIGHT FOREARM 24G AND LEFT HAND 20G. LINES ARE PATENT, INTACT AND ASYMPTOMATIC. PT HAS MULTIPLE DISCOLORATION ON EXTREMITIES. CALL LIGHT WITHIN REACH, ALL SAFETY PRECAUTIONS IN PLACE. BED AT LOW POSSIBLE POSITION. WILL CONTINUE TO MONITOR PT.
--- NOTE | 2017-10-03 19:45 | NUR ---
REPORT GIVEN TO NOC SHIFT RN FOR CONTINUITY OF CARE. PT ON STABLE CONDITION.
[2017-10-03] MEDS ORDERED: levETIRAcetam 100 MG/ML ORASYR GT SCH (21:00)
[2017-10-03] MEDS: PIPER/TAZO 2.25GM/D5W PREMIX 50 ML IV SCH (21:18)
[2017-10-03] MEDS: SIMETHICONE 80 MG TAB.CHEW GT SCH (21:18)
[2017-10-03] MEDS: DOCUSATE SODIUM 100 MG GELCAP PO SCH (21:18)
[2017-10-03] MEDS: levETIRAcetam 100 MG/ML ORASYR GT SCH (21:18)
[2017-10-03] MEDS: BISACODYL 10 MG SUPP RC SCH (21:19)
--- NOTE | 2017-10-03 21:40 | NUR ---
ASSESSED PATIENT WHO APPEARED TACHYPNIC AND SOB. GAVE INLINE HHN TX OF ALBUTEROL. LAVAGED AND SUCTIONED PATIENT 2 TIMES, RECEIVED SMALL, THICK AND THIN GU SECRETIONS. TX AND SUCTIONING APPEARED TO HAVE HELP WITH SOB. WILL CONTINUE TO MONITOR.
--- NOTE | 2017-10-03 22:05 | NUR ---
PAGED DR. HOGUE AND RECEIVED CALL BACK FROM DR. BRUNNER (ON-CALL), INFORMED REGARD LAB VALUES AND RECEIVED NEW ORDERS.
[2017-10-03] MEDS ORDERED: POTASSIUM CHLORIDE 20% 40 MEQ/15 ML UDC GT SCH (23:00)
[2017-10-04] VITALS (22 sets, daily range): BP systolic 89–138; BP diastolic 52–83
--- NOTE | 2017-10-04 01:25 | NUR ---
VS STABLE AT THIS TIME. PT DOES NOT APPEAR TO BE IN ANY SIGNS OF DISTRESS. BREATHING APPEARS TO BE IMPROVED, NO LONGER LABORED BREATHING. NO CHANGE IN CONDITION AT THIS TIME. WILL CONTINUE TO MONITOR PT.
--- NOTE | 2017-10-04 03:27 | NUR ---
VS STABLE AT THIS TIME. NO CHANGE IN CONDITION. PT SLEEPING AND DOES NOT APPEAR TO BE IN ANY DISTRESS. WILL CONTINUE TO MONITOR
[2017-10-04 05:06] LABS: BASOPHILS # (AUTO) 0.2 K/uL (0.00-0.22); BASOPHILS % (AUTO) 2.2 % (0.0-2.0); EOSINOPHILS % (AUTO) 10.7 % (0.0-4.0); HEMATOCRIT 23.7 % (36-48); HEMOGLOBIN 7.6 g/dL (12.0-16.0); LYMPHOCYTES # (AUTO) 1.2 K/uL (2.5-16.5); LYMPHOCYTES % (AUTO) 13.5 % (20.5-51.1); MEAN CORPUSCULAR HEMOGLOBIN 29 pg (27-31); MEAN CORPUSCULAR HGB CONC 32 g/dL (33-37); MEAN CORPUSCULAR VOLUME 88.8 fL (80-94); MONOCYTES # (AUTO) 0.5 K/uL (0.8-1.0); MONOCYTES % (AUTO) 5.7 % (1.7-9.3); NEUTROPHILS # (AUTO) 6.1 K/uL (1.8-7.7); NEUTROPHILS % (AUTO) 67.9 % (42.2-75.2); PLATELET COUNT (AUTO) 247 K/uL (140-450); RED BLOOD CELL COUNT(AUTO) 2.67 MIL/uL (4.20-5.40); RED CELL DISTRIBUTION WIDTH 17.7 % (11.6-13.7)
[2017-10-04] MEDS: PIPER/TAZO 2.25GM/D5W PREMIX 50 ML IV SCH ×3 (05:29→20:16)
--- NOTE | 2017-10-04 05:30 | NUR ---
MORNING CARE PROVIDED. PT TOLERATED BEING TURNED AND REPOSITIONED. NO CHANGE IN CONDITION AT THIS TIME. NO BM. WILL CONTINUE TO MONITOR PT.
[2017-10-04 05:57] LABS: ANION GAP 16.7 (8-16); CARBON DIOXIDE 19.4 mmol/L (21-32); CHLORIDE 118 mmol/L (98-107); CREATININE 2.1 mg/dL (0.6-1.3); GLUCOSE 153 mg/dL (74-106); POTASSIUM 4.1 mmol/L (3.5-5.1); SODIUM SERUM 150 mmol/L (136-145)
[2017-10-04 06:06] LABS: UREA NITROGEN, BLOOD 76 mg/dL (7-18)
[2017-10-04] MEDS: BLOOD GLUCOSE MONITORING 1 DEV DEV FS SCH ×4 (06:35→20:48)
--- NOTE | 2017-10-04 06:50 | NUR ---
CALLED PHARMACY AND SPOKE WITH EULALIA, REPORTED RANDOM VANCOMYCIN LEVEL.
--- NOTE | 2017-10-04 07:16 | NUR ---
REPORT GIVEN TO MORNING RN FOR CONTINUITY OF CARE. PT IN STABLE CONDITION AT THIS TIME.
--- NOTE | 2017-10-04 07:17 | NUR ---
RECEIVED REPORT FROM NIGHT RN FOR AT BEDSIDE, PT OPEN EYES ONLY, NO REACTION OF PUPILS NOTED, APHASIC, UNABLE TO FOLLOW COMMANDS, VSS, FLACC 0, TRACH TO VENT WITH SETTINGS FIO2 40%, TV 500, R12, AND PEEP 5. DIMINISHED LUNG SOUNDS ANSELMO, AND LABORED BREATHING NOTED. SR ON CUFF SETTER, PULSES PALPATED IN ALL EXTREMITIES, GTUBE IN PLACE, NPO EXCEPT MEDS, NO FEEDING ORDERED AT THIS TIME, ROUND AND DISTENDED ABDOMEN NOTED, WITH ACTIVE BOWEL SOUNDS, HILTON CATHETER IN PLACE, DRAINING CLEAR YELLOW URINE VIA GRAVITY. UNABLE TO MOVE ALL EXTREMITIES, PERIPHERAL IV ACCESS ON RIGHT FOREARM 24G AND LEFT HAND 20G, RUNNING D5 1/2 NS AT 100ML/HR. SKIN IS WARM AND DRY TO TOUCH, INTACT, MULTIPLE DISCOLORATION ON EXTREMITIES NOTED. ORAL CARE PROVIDED, POSITION CHANGED FOR OFF LOAD PRESSURE, HOB ELEVATED 30 DEGREES, SAFETY AND SEIZURE PRECAUTIONS IN PLACE, WILL CONTINUE TO MONITOR.
[2017-10-04] MEDS: LORazepam 2 MG/ML VIAL IVP PRN ×2 (07:22→14:36)
--- NOTE | 2017-10-04 07:22 | NUR ---
PT HAD A EPISODE OF SEIZURE WITH EYES TWITCHING, ATIVAN GIVEN, SYSTEMS DECREASED AT THIS TIME, VSS.
--- NOTE | 2017-10-04 07:31 | NUR ---
PT HAD ANOTHER EPISODE OF SEIZURE WITH EYES TWITCHING AT THIS TIME, PAGED DR. THORNTON.
[2017-10-04] MEDS: MULTIVITAMIN/MINERALS 1 TAB GT SCH (08:32)
[2017-10-04] MEDS: LACTOBACILLUS RHAMNOSUS GG 1 EACH CAP PO SCH (08:32)
[2017-10-04] MEDS: DOCUSATE SODIUM 100 MG GELCAP PO SCH ×2 (08:32→20:15)
[2017-10-04] MEDS: glipiZIDE 5 MG TAB GT SCH (08:33)
[2017-10-04] MEDS: CAPTOPRIL 25 MG TAB GT SCH (08:33)
[2017-10-04] MEDS: LEVOTHYROXINE 0.075 MG TAB GT SCH (08:33)
[2017-10-04] MEDS: levETIRAcetam 100 MG/ML ORASYR GT SCH ×2 (08:33→20:19)
[2017-10-04] MEDS: SIMETHICONE 80 MG TAB.CHEW GT SCH ×2 (08:33→20:15)
[2017-10-04] MEDS ORDERED: NON-FORMULARY ITEM (Multivitamin with Minerals (Multivitamins with Minerals) 1 TAB) GT SCH (09:00)
[2017-10-04] MEDS ORDERED: LACTOBACILLUS ACIDOPHILUS GT SCH (09:00)
--- NOTE | 2017-10-04 09:00 | NUR ---
SCHEDULED MEDICATION GIVEN VIA GT, 0 ML RESIDUAL AT THIS TIME, PT TOLERATED WELL.
--- NOTE | 2017-10-04 10:00 | NUR ---
NO CHANGE OF CONDITION AT THIS TIME, VSS, FLACC 0, POSITION CHANGED FOR OFF LOAD PRESSURE.
[2017-10-04] MEDS: INSULIN LISPRO SLIDING SCALE 100 UNITS/ML VIAL SUBQ PRN ×2 (11:25→20:48)
[2017-10-04] MEDS ORDERED: VANCOMYCIN 1GM/DEXT 5% PREMIX 200 ML IV SCH (12:00)
--- NOTE | 2017-10-04 12:00 | NUR ---
PT IS ASLEEP IN BED, FLACC 0, NO S/S OF DISTRESS, VSS, ORAL CARE PROVIDED, POSITION CHANGED FOR OFF LOAD PRESSURE.
--- NOTE | 2017-10-04 12:50 | NUR ---
DR. HERNANDEZ CAME IN TO SEE PT AT BEDSIDE, WILL FOLLOW UP WITH NEW ORDERS.
--- NOTE | 2017-10-04 13:00 | NUR ---
WOUND CARE EVALUATION DONE WITH FAUZIA CERDA AT BEDSIDE.
--- NOTE | 2017-10-04 13:30 | NUR ---
DR. HOGUE CAME IN TO SEE PT AT BEDSIDE, NEW ORDERS OBTAINED AND WILL FOLLOW UP.
--- NOTE | 2017-10-04 13:38 | NUR ---
PATIENT HAS BEEN SCREENED AND CATEGORIZED HIGH NUTRITION RISK. PATIENT WILL BE SEEN WITHIN 1-2 DAYS OF ADMISSION. 10/04/[address]
--- NOTE | 2017-10-04 13:45 | NUR ---
DR. MURILLO CAME IN TO SEE PT AT BEDSIDE, WILL FOLLOW UP WITH NEW ORDERS.
--- NOTE | 2017-10-04 13:59 | NUR ---
INITIAL REVIEW FAXED TO [facility] [phone]
[2017-10-04] MEDS ORDERED: MAG SULF 2000 MG/WATER PREMIX 50 ML IV SCH (14:00)
--- NOTE | 2017-10-04 14:35 | NUR ---
REASON FOR EVALUATION: LOW ADALGISA SCORE SKIN ASSESSMENT DONE ON THIS 87 Y/O FEMALE PATIENT ADMITTED TO [facility], WITH INITIAL DIAGNOSIS OF EPILEPTICUS. PAST MEDICAL AND SURGICAL HISTORY INCLUDE CVA, DM, SEIZURE AND HYPOTHYROIDISM. ALL ABOVE INFORMATION WAS OBTAINED FROM THE ADMISSION H&P. LABS ARE WBC 90., H/H 7.6/23.7, GLUCOSE 153, ALBUMIN 2.0. PATIENT IS ASLEEP, TRACH TO VENT. FC PATENT AND INTACT TO CLOUDY YELLOW URINE IN MODERATE AMOUNT. SKIN WARM TO TOUCH WNL, NO EDEMA BLE, FINE HAIR GROWTH AND BILATERAL PEDAL PULSES PRESENT. NEEDS MAX ASSISTANCE IN TURNING. INITIAL PLAN OF CARE AND PRESSURE PREVENTIVE MEASURES DISCUSSED WITH PRIMARY RN. INTEGUMENTARY: LEFT HAND +2 EDEMA, PERIPHERAL IV TO LEFT HAND, PRIMARY RN NOTIFY LEFT 2ND FINGER DEFORMITY TRACH RACHAEL-STOMA SKIN CLEAN AND INTACT. GT RACHAEL-STOMA SKIN CLEAN AND INTACT. 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 -OFFLOAD BILATERAL HEELS BY PLACING PILLOWS UNDER CALVES AT ALL TIMES, UNLESS OTHERWISE CONTRAINDICATED -KEEP SKIN CLEAN AND DRY AT ALL TIMES. -PRESSURE REDISTRIBUTION SURFACE THERAPY. -DIETITIAN CONSULT RECOMMENDATIONS DISCUSSED WITH PRIMARY RN. WILL FOLLOW UP PATIENT Q 7-10 DAYS AND PRN. PLEASE CONTACT WOUND CARE NURSE FOR ANY CONCERNS, QUESTIONS AND CHANGES IN SKIN CONDITION.
--- NOTE | 2017-10-04 14:37 | NUR ---
PT HAD AN EPISODE OF SEIZURE LAST 30SEC WITH EYES TWITCHING AND ROLLING TO LEFT SIDE, ATIVAN GIVEN, WILL CONTINUE TO MONITOR.
--- NOTE | 2017-10-04 14:52 | NUR ---
10/04/17 RD INITIAL ASSESSMENT COMPLETED PLEASE REFER TO NUTRITION ASSESSMENT UNDER CARE ACTIVITY FOR ESTIMATED NUTRITIONAL NEEDS. 1. CONTINUE NPO MEDICALLY APPROPRIATE 2. IF/WHEN MEDICALLY APPROPRIATE CONSIDER ENTERAL NUTRITION: DIABETISOURCE AT 65 ML/HR GOAL RATE WITH 100 ML H[address] TO FOLLOW-UP 2-3 DAYS, HIGH RISK DEANGELO CARDONA, RD
--- NOTE | 2017-10-04 15:24 | NUR ---
Security Control Assessor Note: I called and spoke with patient's daughter Laura Singer (Kazakh speaking), she stated she is patient's healthcare decision maker. She reported she has not talked to physician regarding hospice evaluation order. She stated she would like to meet with physician and discuss hospice evaluation order. She reported she would like to include other family members so they can make a decision together. I explained to her we will obtain physician's availability to meet with them (patient's family) tomorrow. She verbalized understanding. I informed charge nurse FAUZIA Wren Laura is patient's healthcare decision maker and that she would like to meet with physician regarding hospice evaluation order. FAUZIA Wren stated she would contact physician and call me back. FAUZIA Wren called me back and stated physician is available tomorrow between 10am-10:30am. I called Laura and provided her with physician's availability, she stated she will come with her family tomorrow at 10am to meet with physician. Addendum: 10/04/17 at 1544 by Vannessa Sawyer Dov was tearful when we discussed hospice evaluation order. I explained to her that although physician can make recommendations regarding patient's plan of care, she and her family have the right to decide what is best for patient. She verbalized understanding and thanked me for my assistance.
[2017-10-04] MEDS: DEXT 5% / NACL 0.45% 1,000 ML IV SCH ×2 (15:33→23:00)
--- NOTE | 2017-10-04 16:00 | NUR ---
PM CARE AND F/C CARE PROVIDED, NO S/S OF DISTRESS, ORAL CARE PROVIDED, POSITION CHANGED FOR OFF LOAD PRESSURE.
--- NOTE | 2017-10-04 18:00 | NUR ---
PT IS ASLEEP IN BED, NO S/S OF DISTRESS, PT'S FAMILY MEMBERS AT BEDSIDE, POSITION CHANGED FOR OFF LOAD PRESSURE.
--- NOTE | 2017-10-04 19:25 | NUR ---
REPORT GIVEN TO TYPE DISK QUALITY CONTROL SUPERVISOR RN AT BEDSIDE FOR CONTINUE OF CARE, PT IS IN STABLE CONDITION AT THIS TIME.
--- NOTE | 2017-10-04 19:30 | NUR ---
RECEIVED REPORT FORM MORNING RN FOR CONTINUITY OF CARE. VS STABLE AT THIS TIME. PT AFEBRILE. PT ASLEEP AT THIS TIME. TRACH TO VENT WITH SETTINGS: AC12, FIO2 30%, TV 500, AND PEEP 5. NO SIGNS OF RESPIRATORY DISTRESS NOTED. SINUS RHYTHM TO SINUS BRADYCARDIA ON MONITOR. PER MORNING SHIFT MD IS AWARE. PULSES ARE PALPABLE IN EXTREMITIES. ABDOMEN ROUND, SOFT AND SLIGHTLY DISTENDED. GTUBE IN PLACE. BOWEL SOUNDS ACTIVE IN ALL QUADRANTS. HILTON CATHETER IN PLACE AND DRAINING CLEAR, YELLOW URINE. PT HAS RIGHT FOREARM 24G PERIPHERAL IV ACCESS THAT IS PATENT, ASYMPTOMATIC AND INTACT, WELL LEFT HAND 20G PERIPHERAL IV ACCESS. ALL SAFETY PRECAUTIONS ARE IN PLACE. BED AT LOW POSSIBLE POSITION. WILL CONTINUE TO MONITOR PT.
[2017-10-04] MEDS: BISACODYL 10 MG SUPP RC SCH (20:15)
--- NOTE | 2017-10-04 21:56 | NUR ---
PT ASLEEP AT THIS TIME. APPEARS TO BE COMFORTABLE. DOES NOT APPEAR TO BE IN ANY DISTRESS OR IN ANY PAIN. FLACC 0. SINUS BRADYCARDIA ON MONITOR. WILL CONTINUE TO MONITOR PT.
[2017-10-05] VITALS (22 sets, daily range): BP systolic 88–152; BP diastolic 42–95
[2017-10-05] MEDS: Z-GUARD PASTE TP SCH ×2 (00:22→13:26)
--- NOTE | 2017-10-05 01:15 | NUR ---
VS STABLE AT THIS TIME. NO CHANGE IN CONDITION. PT SLEEPING CURRENTLY. FLACC 0. DOES NOT APPEAR TO BE IN ANY SIGNS OF DISTRESS AND DOES NOT APPEAR TO BE HAVING ANY DISCOMFORT. WILL CONTINUE TO MONITOR PT.
[2017-10-05] MEDS: DEXT 5% / NACL 0.45% 1,000 ML IV SCH ×2 (02:00→08:28)
[2017-10-05] MEDS: PIPER/TAZO 2.25GM/D5W PREMIX 50 ML IV SCH ×3 (04:02→21:21)
--- NOTE | 2017-10-05 04:45 | NUR ---
MORNING CARE PROVIDED TO PT. HR INCREASED AND CURRENTLY SINUS RHYTHM ON MONITOR. PT AWAKE, NO SEIZURE EPISODE NOTED. HILTON CATHETER CARE PROVIDED. NO BM AT THIS MOMENT. BED AT LOW POSSIBLE POSITION. ALL SAFETY PRECAUTIONS IN PLACE. WILL CONTINUE TO MONITOR PT.
--- NOTE | 2017-10-05 06:36 | NUR ---
PT HAD A SEIZURE EPISODE THAT LASTED FOR ABOUT 30 SECONDS. ATIVAN GIVEN ORDERED. VS STABLE AT THIS TIME. WILL CONTINUE TO MONITOR PT.
[2017-10-05 06:39] LABS: BASOPHILS # (AUTO) 0.2 K/uL (0.00-0.22); BASOPHILS % (AUTO) 2.7 % (0.0-2.0); EOSINOPHILS % (AUTO) 13.5 % (0.0-4.0); HEMATOCRIT 23.5 % (36-48); HEMOGLOBIN 7.4 g/dL (12.0-16.0); LYMPHOCYTES # (AUTO) 1.7 K/uL (2.5-16.5); LYMPHOCYTES % (AUTO) 22.5 % (20.5-51.1); MEAN CORPUSCULAR HEMOGLOBIN 28 pg (27-31); MEAN CORPUSCULAR HGB CONC 32 g/dL (33-37); MEAN CORPUSCULAR VOLUME 89.3 fL (80-94); MONOCYTES # (AUTO) 0.5 K/uL (0.8-1.0); MONOCYTES % (AUTO) 6.6 % (1.7-9.3); NEUTROPHILS # (AUTO) 4.2 K/uL (1.8-7.7); NEUTROPHILS % (AUTO) 54.7 % (42.2-75.2); PLATELET COUNT (AUTO) 240 K/uL (140-450); RED BLOOD CELL COUNT(AUTO) 2.63 MIL/uL (4.20-5.40); RED CELL DISTRIBUTION WIDTH 17.9 % (11.6-13.7); WHITE BLOOD COUNT (AUTO) 7.7 K/uL (4.8-10.8)
[2017-10-05] MEDS: BLOOD GLUCOSE MONITORING 1 DEV DEV FS SCH ×4 (06:44→21:20)
[2017-10-05] MEDS: LORazepam 2 MG/ML VIAL IVP PRN (06:45)
[2017-10-05] MEDS: INSULIN LISPRO SLIDING SCALE 100 UNITS/ML VIAL SUBQ PRN (06:45)
--- NOTE | 2017-10-05 07:15 | NUR ---
REPORT GIVEN TO MORNING RN FOR CONTINUITY OF CARE. PT IN STABLE CONDITION AT THIS TIME.
--- NOTE | 2017-10-05 07:16 | NUR ---
RECEIVED REPORT FROM NIGHT RN FOR AT BEDSIDE, PT OPEN EYES ONLY, NO REACTION OF PUPILS NOTED, APHASIC, UNABLE TO FOLLOW COMMANDS, VSS, FLACC 0, TRACH TO VENT WITH SETTINGS FIO2 30%, TV 500, R12, PEEP 5. DIMINISHED LUNG SOUNDS ANSELMO. SB ON SOIL FERTILITY SPECIALIST, PULSES PALPATED IN ALL EXTREMITIES, GTUBE IN PLACE, STILL ON NPO EXCEPT MEDS, NO FEEDING ORDERED AT THIS TIME, ROUND AND DISTENDED ABDOMEN NOTED, WITH ACTIVE BOWEL SOUNDS, HILTON CATHETER IN PLACE, DRAINING CLEAR YELLOW URINE VIA GRAVITY. UNABLE TO MOVE ALL EXTREMITIES, PERIPHERAL IV ACCESS ON RIGHT FOREARM 24G AND LEFT HAND 20G, RUNNING D5 1/2 NS AT 100ML/HR. SKIN IS WARM AND DRY TO TOUCH, INTACT, MULTIPLE DISCOLORATION ON EXTREMITIES NOTED. ORAL CARE PROVIDED, POSITION CHANGED FOR OFF LOAD PRESSURE, HOB ELEVATED 30 DEGREES, SAFETY AND SEIZURE PRECAUTIONS IN PLACE, WILL CONTINUE TO MONITOR.
--- NOTE | 2017-10-05 07:20 | NUR ---
DR. HUTSON CAME IN TO SEE PT AT BEDSIDE, NEW ORDER OBTAINED, WILL FOLLOW UP.
[2017-10-05] MEDS: SIMETHICONE 80 MG TAB.CHEW GT SCH ×2 (08:29→21:21)
[2017-10-05] MEDS: levETIRAcetam 100 MG/ML ORASYR GT SCH ×2 (08:29→21:21)
[2017-10-05] MEDS: DOCUSATE SODIUM 100 MG GELCAP PO SCH ×2 (08:29→21:22)
[2017-10-05] MEDS: VALPROATE SODIUM 750 MG in NACL 0.9% 100 ML IV SCH ×2 (08:29→17:04)
[2017-10-05] MEDS: LEVOTHYROXINE 0.075 MG TAB GT SCH (08:29)
[2017-10-05] MEDS: MULTIVITAMIN/MINERALS 1 TAB GT SCH (08:30)
[2017-10-05] MEDS: glipiZIDE 5 MG TAB GT SCH (08:30)
[2017-10-05] MEDS: CAPTOPRIL 25 MG TAB GT SCH (08:30)
[2017-10-05] MEDS: LACTOBACILLUS RHAMNOSUS GG 1 EACH CAP PO SCH (08:30)
[2017-10-05] MEDS ORDERED: POLYETHYLENE GLYCOL 17 GM/PKT GT SCH (09:00)
--- NOTE | 2017-10-05 09:00 | NUR ---
SCHEDULED MEDICATION GIVEN VIA GT, PT TOLERATED WELL.
--- NOTE | 2017-10-05 10:00 | NUR ---
NO S/S OF DISTRESS, VSS, FLACC 0, POSITION CHANGED FOR OFF LOAD PRESSURE.
--- NOTE | 2017-10-05 10:30 | NUR ---
DR. HOGUE ,[facility] HAVE MEETING WITH FAMILY[DAUGHTER LEANNE WALTERS] TO UPDATE PT CONDITION AND POSSIBLE PLACE PT.TO PALLITIVE CARE. PT CODE STATUS IS DNR AT THE TIME. THE FAMILY WANTED TO HAVE PT. CONTINUE WITH DNR CODE STATUS. IN NEXT 24-36 HOURS IF PT DOES NOT HAVE ANY SIEZURE PT WILL [facility].
[2017-10-05 11:18] LABS: CARBON DIOXIDE 19.6 mmol/L (21-32); CHLORIDE 113 mmol/L (98-107); CREATININE 2.1 mg/dL (0.6-1.3); GLUCOSE 170 mg/dL (74-106); POTASSIUM 3.6 mmol/L (3.5-5.1); SODIUM SERUM 145 mmol/L (136-145)
[2017-10-05 11:29] LABS: UREA NITROGEN, BLOOD 64 mg/dL (7-18)
--- NOTE | 2017-10-05 12:00 | NUR ---
PT IS ASLEEP IN BED, NO S/S OF DISTRESS, VSS, FLACC 0, ORAL CARE PROVIDED, POSITION CHANGED FOR OFF LOAD PRESSURE.
--- NOTE | 2017-10-05 12:33 | NUR ---
Social Service Note: and I met with patient's adult children, including patient's daughter Laura Singer (patient's healthcare decision maker) to discuss patient's current medical condition and to provide brief information on hospice. Patient's family was informed that if they decide to obtain additional information on hospice and sign hospice consents, patient would be taken off vent. explained patient's plan of care at this time, which is to continue to provide care and monitor patient, if patient does not have a seizure between 24-36 hours, she will be transfer back to [phone] once medically stable. However, if patient continues to have frequent seizures Dr Alvarez advised them to consider hospice as an option. added that they have the right decline hospice as an option. I told them they have the option of meeting with a relations liaison in order to obtain additional information on hospice, and not to feel pressured about signing consents. I encouraged them to speak together and make a decision as a family. They verbalized understanding. I provided them with my contact information.
--- NOTE | 2017-10-05 14:00 | NUR ---
NO S/S OF DISTRESS, VSS, FLACC 0, POSITION CHANGED FOR OFF LOAD PRESSURE.
--- NOTE | 2017-10-05 16:00 | NUR ---
PM CARE AND F/C CARE PROVIDED, ORAL CARE PROVIDED, POSITION CHANGED FOR OFF LOAD PRESSURE, PT TOLERATED WELL. VSS.
--- NOTE | 2017-10-05 18:00 | NUR ---
PT EYES OPEN, NO S/S OF DISTRESS, VSS, PT'S FAMILY AT BEDSIDE, POSITION CHANGED FOR OFF LOAD PRESSURE.
--- NOTE | 2017-10-05 19:15 | NUR ---
REPORT GIVEN TO ENGINEERING INSPECTION ASSISTANT NURSE AT BEDSIDE FOR CONTINUE OF CARE, PT IS IN STABLE CONDITION AT THIS TIME.
--- NOTE | 2017-10-05 19:20 | NUR ---
RECEIVED REPORT FROM MORNING RN. PT IN STABLE CONDITION AT THIS TIME. AFEBRILE. FLACC 0. LUNG SOUNDS DIMINISHED. TRACH TO VENT WITH SETTINGS: AC12, FIO2 30%, TV 500 AND PEEP 5. NO SIGNS OF RESPIRATORY DISTRESS NOTED. CHEST EXPANSION EQUAL BILATERALLY. S1+S2 HEARD. SINUS BRADYCARDIA ON MONITOR. GTUBE IN PLACE. ABDOMEN ROUND, SOFT AND NONDISTENDED. BOWEL SOUNDS ACTIVE IN ALL QUADRANTS. NO DRAINAGE NOTED ON GTUBE SITE. HILTON CATHETER IN PLACE AND DRAINING CLEAR, YELLOW URINE. PT HAS RIGHT FOREARM 24G AND LEFT HAND 20G PERIPHERAL IV ACCESS. LINES ARE ALL PATENT, INTACT, AND ASYMPTOMATIC. BED AT LOW POSSIBLE POSITION. ALL SAFETY PRECAUTIONS ARE IN PLACE. WILL CONTINUE TO MONITOR PT.
[2017-10-05] MEDS: BISACODYL 10 MG SUPP RC SCH (21:21)
--- NOTE | 2017-10-05 22:58 | NUR ---
VS STABLE AT THIS TIME. NO CHANGE IN CONDITION. PT ASLEEP AT THIS TIME. FLACC 0. DOES NOT APPEAR TO BE IN ANY DISTRESS OR APPEAR TO BE EXPERIENCING ANY DISCOMFORT. WILL CONTINUE TO MONITOR PT.
[2017-10-06] VITALS (20 sets, daily range): BP systolic 118–156; BP diastolic 56–96
[2017-10-06] MEDS: Z-GUARD PASTE TP SCH ×2 (01:00→13:33)
[2017-10-06] MEDS: VALPROATE SODIUM 750 MG in NACL 0.9% 100 ML IV SCH ×3 (01:15→16:25)
--- NOTE | 2017-10-06 02:38 | NUR ---
NO CHANGE IN CONDITION AT THIS TIME. SINUS RHYTHM ON MONITOR. FLACC 0. DOES NOT APPEAR TO BE IN ANY SIGNS OF DISTRESS. WILL CONTINUE TO MONITOR PT.
[2017-10-06] MEDS: PIPER/TAZO 2.25GM/D5W PREMIX 50 ML IV SCH ×2 (04:24→13:37)
--- NOTE | 2017-10-06 04:45 | NUR ---
MORNING CARE PROVIDED TO PT. TOLERATED BEING TURNED WELL. NO SIGNS OF RESPIRATORY DISTRESS NOTED. VS STABLE AT THIS TIME. NO CHANGE IN CONDITION CURRENTLY. ALL SAFETY PRECAUTIONS ARE IN PLACE. HILTON CATHETER CARE PROVIDED. WILL CONTINUE TO MONITOR PT.
[2017-10-06] MEDS: BLOOD GLUCOSE MONITORING 1 DEV DEV FS SCH ×3 (06:40→16:25)
[2017-10-06 06:46] LABS: ANION GAP 16.5 (8-16); CARBON DIOXIDE 18.8 mmol/L (21-32); CHLORIDE 114 mmol/L (98-107); CREATININE 2.1 mg/dL (0.6-1.3); GLUCOSE 135 mg/dL (74-106); POTASSIUM 3.3 mmol/L (3.5-5.1); SODIUM SERUM 146 mmol/L (136-145); UREA NITROGEN, BLOOD 50 mg/dL (7-18)
--- NOTE | 2017-10-06 07:05 | NUR ---
REPORT GIVEN TO MORNING RN FOR CONTINUITY OF CARE. PT IN STABLE CONDITION AT THIS TIME.
--- NOTE | 2017-10-06 07:10 | NUR ---
RECEIVED REPORT FROM NIGHT RN FOR AT BEDSIDE, PT OPEN EYES ONLY, NO REACTION OF PUPILS NOTED, APHASIC, UNABLE TO FOLLOW COMMANDS, VSS, FLACC 0, TRACH TO VENT WITH SETTINGS FIO2 30%, TV 500, R12, PEEP 5. DIMINISHED LUNG SOUNDS ANSELMO. SR ON TRUCK ENGINE TECHNICIAN, PULSES PALPATED IN ALL EXTREMITIES, GTUBE IN PLACE, STILL ON NPO EXCEPT MEDS, NO FEEDING ORDERED AT THIS TIME, ROUND SOFT ABDOMEN NOTED, WITH ACTIVE BOWEL SOUNDS, HILTON CATHETER IN PLACE, DRAINING CLEAR YELLOW URINE VIA GRAVITY. UNABLE TO MOVE ALL EXTREMITIES, PERIPHERAL IV ACCESS ON RIGHT FOREARM 24G AND LEFT HAND 20G, RUNNING D5 1/2 NS AT 100ML/HR. SKIN IS WARM AND DRY TO TOUCH, INTACT, MULTIPLE DISCOLORATION ON EXTREMITIES NOTED. ORAL CARE PROVIDED, POSITION CHANGED FOR OFF LOAD PRESSURE, HOB ELEVATED 30 DEGREES, SAFETY AND SEIZURE PRECAUTIONS IN PLACE, WILL CONTINUE TO MONITOR.
[2017-10-06] MEDS: LACTOBACILLUS RHAMNOSUS GG 1 EACH CAP PO SCH (08:32)
[2017-10-06] MEDS: glipiZIDE 5 MG TAB GT SCH (08:33)
[2017-10-06] MEDS: LEVOTHYROXINE 0.075 MG TAB GT SCH (08:33)
[2017-10-06] MEDS: DOCUSATE SODIUM 100 MG GELCAP PO SCH (08:33)
[2017-10-06] MEDS: MULTIVITAMIN/MINERALS 1 TAB GT SCH (08:33)
[2017-10-06] MEDS: CAPTOPRIL 25 MG TAB GT SCH (08:33)
[2017-10-06] MEDS: SIMETHICONE 80 MG TAB.CHEW GT SCH (08:33)
[2017-10-06] MEDS: levETIRAcetam 100 MG/ML ORASYR GT SCH (08:34)
--- NOTE | 2017-10-06 09:00 | NUR ---
SCHEDULED MEDICATION GIVEN VIA GTUBE, PT TOLERATED WELL.
[2017-10-06] MEDS ORDERED: POTASSIUM CHLORIDE 10 MEQ TABER PO SCH (09:15)
[2017-10-06] MEDS ORDERED: KCL 20 MEQ/WATER INJ PREMIX 200 ML IV ONE (09:25)
[2017-10-06] MEDS ORDERED: POTASSIUM CHLORIDE 20% 40 MEQ/15 ML UDC GT SCH (09:35)
[2017-10-06] MEDS: DEXT 5% / NACL 0.45% 1,000 ML IV SCH (09:45)
--- NOTE | 2017-10-06 10:00 | NUR ---
NO S/S OF DISTRESS, VSS, FLACC 0, POSITION CHANGED FOR OFF LOAD PRESSURE.
[2017-10-06] MEDS ORDERED: VANCOMYCIN 1GM/DEXT 5% PREMIX 200 ML IV SCH (12:00)
--- NOTE | 2017-10-06 12:00 | NUR ---
NO CHANGE OF CONDITION AT THIS TIME, VSS, FLACC 0, ORAL CARE PROVIDED, POSITION CHANGED FOR OFF LOAD PRESSURE.
[2017-10-06] MEDS ORDERED: LACT10CA PO (12:48)
[2017-10-06] MEDS ORDERED: PIPE50SO5 IV (12:48)
[2017-10-06] MEDS ORDERED: VALP-22 GT (12:49)
--- NOTE | 2017-10-06 13:00 | NUR ---
DR. HOGUE CAME IN TO SEE PT AT BEDSIDE, D/C ORDER OBTAINED, WILL CONTACT [facility] FOR A BED.
--- NOTE | 2017-10-06 14:00 | NUR ---
EXPLAINED PT CONDITION AND GOING TO D/C BACK TO [facility] TO PT'S DAUGHTER, PT'S DAUGHTER VERBALIZED UNDERSTANDING AND SIGNED CONSENT TO TRANSFER.
--- NOTE | 2017-10-06 15:18 | NUR ---
REPORT GIVEN TO OANH AMADO, AND INFORMED HER PT WILL BE PICKED UP AT 1900. PT WILL GO TO ROOM 8B, STRUCTURAL LAYOUT WORKER MADE AWARE.
--- NOTE | 2017-10-06 16:00 | NUR ---
PM CARE AND F/C CARE PROVIDED, ORAL CARE PROVIDED, POSITION CHANGED FOR OFF LOAD PRESSURE, TUBE FEEDING STARTED AND D5 1/2 NS D/C ORDERED AT THIS TIME.
--- NOTE | 2017-10-06 18:00 | NUR ---
NO S/S OF DISTRESS, VSS, FLACC 0, POSITION CHANGED FOR OFF LOAD PRESSURE.
--- NOTE | 2017-10-06 19:12 | NUR ---
REPORT GIVEN TO FAUZIA BALLESTEROS FOR CONTINUE OF CARE, PT IS IN STABLE CONDITION AT THIS TIME.
--- NOTE | 2017-10-06 19:53 | NUR ---
PATIENT DISCHARGED TO ICU AT 1950, TRANSPORTED BY [facility] [facility] [place]. PER PRASHANT VILLALOBOS/FAUZIA DAYSHIFT, REPORT ALREADY GIV[place] [facility] [place] AND [place]IENT'S FAMILY ALREADY AWARE OF THE TRANSFER. PATIENT DOES NOT HAVE ANY BELONGINGS. SR ON THE MONITOR, NO RESPIRATORY DISTRESS, FLACC 0, SKIN INTACT.
== END 2017-10-06 19:50 | disposition home or self-care (01) | DRG 720 ==
LOC: MED 07:55 → MIC 10:14
PROVIDERS: ADMIT Hospitalist; ATTEND Hospitalist
PROC: 5A1945Z Respiratory Ventilation, 24-96 Consecutive Hours (ICD-10-PCS; principal; 2017-10-03)
DX: A41.9 Sepsis, unspecified organism (principal); J96.21 Acute and chronic respiratory failure with hypoxia; J69.0 Pneumonitis due to inhalation of food and vomit; Z99.11 Dependence on respirator [ventilator] status; N17.9 Acute kidney failure, unspecified; Z93.0 Tracheostomy status; E44.0 Moderate protein-calorie malnutrition; E87.0 Hyperosmolality and hypernatremia; F03.90 Unspecified dementia, unspecified severity, without behavioral disturbance, psychotic disturbance, mood disturbance, and anxiety; N39.0 Urinary tract infection, site not specified; E86.0 Dehydration; Y95 Nosocomial condition; G40.901 Epilepsy, unspecified, not intractable, with status epilepticus; E87.1 Hypo-osmolality and hyponatremia; E03.9 Hypothyroidism, unspecified; R13.10 Dysphagia, unspecified; E86.1 Hypovolemia; E87.6 Hypokalemia; N20.0 Calculus of kidney; D63.8 Anemia in other chronic diseases classified elsewhere; N18.9 Chronic kidney disease, unspecified; E11.22 Type 2 diabetes mellitus with diabetic chronic kidney disease; Z93.1 Gastrostomy status; Z79.84 Long term (current) use of oral hypoglycemic drugs; Z79.899 Other long term (current) drug therapy; I69.30 Unspecified sequelae of cerebral infarction; Z68.23 Body mass index [BMI] 23.0-23.9, adult
CPT/HCPCS: 36415; 36600; 70450; 71045; 76770; 80048; 80053; 80173; 80202; 81001; 82803; 83540; 83605; 83735; 84300; 84484; 85025; 86886; 86900; 86901; 87040; 87081; 87086; 93005; 94002; 94003; 96361; 96365; 96375; 99291; J1644; J1815; J2060; J2543; J3370; J3475; J3490; J7030; J7060; J7613; Q0092

== ENCOUNTER 2017-11-08 11:15 | Inpatient (IN) | payer OTHER, MEDICARE ==
[2017-11-08] VITALS (12 sets, daily range): BP systolic 90–124; BP diastolic 41–70
[~2017-11-08] VITALS: Ht 152.4 cm; Wt 70.8 kg
[~2017-11-08 11:15] MED LIST changes: +LACT10CA PO; +VALP-22 GT; -VANC1PLA7 IV
--- NOTE | 2017-11-08 11:16 | NUR ---
PT BIBA ALS TO BED 10
--- NOTE | 2017-11-08 11:24 | NUR ---
rt by bedside
--- NOTE | 2017-11-08 11:24 | NUR ---
87f biba from [facility] with c/o high blood sugar. Per amr report, approximately 0800 today patient had a reading of bs=HIGH after being given 15 units of regular insulin. Patient to vent via tach collar. Patient at neuro baseline per report from [facility]. Patient with GT tube and de la paz. Patient is hypotensive and tachycardiac. ER md rosales aware of patient status. patient to cardiac, pulse, and blood monitoring. Will continue to monitor.
[2017-11-08] MEDS ORDERED: NACL 0.9% 2,000 ML IV SCH (11:31)
[2017-11-08] MEDS ORDERED: PIPERACILLIN/TAZOBACTAM 3.375 GM in DEXT 5% MINI-BAG PLUS 50 ML IV ONE (11:35)
--- NOTE | 2017-11-08 11:56 | NUR ---
xray by bedside
[2017-11-08 12:27] LABS: BASOPHILS # (AUTO) 0.1 K/uL (0.00-0.22); BASOPHILS % (AUTO) 0.6 % (0.0-2.0); EOSINOPHILS # (AUTO) 1.1 K/uL (0-0.4); EOSINOPHILS % (AUTO) 6.7 % (0.0-4.0); HEMATOCRIT 26.1 % (36-48); HEMOGLOBIN 8.2 g/dL (12.0-16.0); LYMPHOCYTES # (AUTO) 1.9 K/uL (2.5-16.5); LYMPHOCYTES % (AUTO) 11.9 % (20.5-51.1); MEAN CORPUSCULAR HEMOGLOBIN 29 pg (27-31); MEAN CORPUSCULAR HGB CONC 31 g/dL (33-37); MONOCYTES # (AUTO) 0.6 K/uL (0.8-1.0); MONOCYTES % (AUTO) 3.7 % (1.7-9.3); NEUTROPHILS % (AUTO) 77.1 % (42.2-75.2); PLATELET COUNT (AUTO) 314 K/uL (140-450); RED BLOOD CELL COUNT(AUTO) 2.81 MIL/uL (4.20-5.40); RED CELL DISTRIBUTION WIDTH 19.3 % (11.6-13.7); WHITE BLOOD COUNT (AUTO) 15.6 K/uL (4.8-10.8)
--- NOTE | 2017-11-08 12:39 | NUR ---
rt by bedside to draw abg. lab by bedside to draw second set of blood cultures.
[2017-11-08 12:46] LABS: ALBUMIN 1.7 g/dL (3.4-5.0); ANION GAP 20.2 (8-16); ASPARTATE AMINOTRANSFERASE 10 U/L (15-37); CARBON DIOXIDE 25.3 mmol/L (21-32); CHLORIDE 107 mmol/L (98-107); CREATININE 2.6 mg/dL (0.6-1.3); GLUCOSE 274 mg/dL (74-106); POTASSIUM 4.5 mmol/L (3.5-5.1); SODIUM SERUM 148 mmol/L (136-145); TOTAL BILIRUBIN 0.2 mg/dL (0.0-1.0)
[2017-11-08 12:49] LABS: UREA NITROGEN, BLOOD 142 mg/dL (7-18)
[2017-11-08 12:51] LABS: ACETONE, SERUM NEGATIVE (NEGATIVE)
--- NOTE | 2017-11-08 12:58 | NUR ---
PT FI02 DECREASED TO .[address] OLIVEIRA
[2017-11-08 12:59] LABS: MAGNESIUM 3.1 mg/dL (1.8-2.4)
[2017-11-08] MEDS ORDERED: PIPERACILLIN/TAZOBACTAM 3.375 GM VIAL IV ONE (13:02)
[2017-11-08 13:04] LABS: APPEARANCE,URINE CLOUDY (CLEAR); BILIRUBIN,URINE NEGATIVE (NEGATIVE); BLOOD, URINE 1+ (NEGATIVE); COLOR,URINE YELLOW (YELLOW); LEUKOCYTE ESTERASE ,URINE 3+ (NEGATIVE); NITRITE, URINE POSITIVE (NEGATIVE); PH,URINE 8.5 (5.0-9.0); UGLUCOSE 2+ (NEGATIVE)
[2017-11-08 13:21] LABS: RBC,URINE 3-10 (FEW) /HPF (0-5); TRIPLE PHOSPHATE CRYSTAL,UR 0-10 /HPF (None Seen); WBC,URINE 60-80 /HPF (0-5)
--- NOTE | 2017-11-08 13:24 | NUR ---
AWAITING ADMIT; PATIENT REMAINS IN SAME CONDITION WHEN ARRIVED. IV FLUIDS INFUSING W/O DIFFICULTY. WILL CONTINUE TO MONITOR.
[2017-11-08] MEDS ORDERED: ONDANSETRON 4 MG/2 ML VIAL IVP PRN (13:50)
[2017-11-08] MEDS ORDERED: LORazepam 2 MG/ML VIAL IVP PRN (13:50)
[2017-11-08] MEDS ORDERED: DEXTROSE 50% 50 ML SYR IVP PRN (13:50)
--- NOTE | 2017-11-08 14:12 | NUR ---
Awaiting admit packet to transfer patient; Admitting notified.
--- NOTE | 2017-11-08 14:51 | NUR ---
Patient will be admitted to [facility]. Admited to ICU. Will go to room ICU 3. Belongings list completed. Bedside Report to Jesica CAGE.
--- NOTE | 2017-11-08 15:00 | NUR ---
RECEIVED REPORT FROM COMMERCIAL PORTFOLIO MANAGER FOR CONTINUITY OF CARE. PATIENT OPENS EYES TO PAIN, UNABLE TO MAKE NEEDS KNOWN. SKIN IS WARM AND DRY AND INTACT, PATIENT HAS PERIPHERAL IV SITE TO RIGHT HAND, 24 GAUGE, ASYMPTOMATIC, PATENT. PATIENT HAS TRACH TO VENT, SETTINGS ARE AC 12, FIO2 28%, TV 500, PEEP 5. BREATHING IS EVEN AND UNLABORED, SR ON MONITOR. SHE HAS GTUBE TO LUQ, HILTON CATHETER IN PLACE TO YELLOW CLEAR URINE. HOB IS 30 DEGREES, CALL LIGHT WITHIN REACH, NO SIGNS OF DISTRESS NOTED. WILL CONTINUE TO MONITOR.
[2017-11-08] MEDS: NACL 0.9% 1,000 ML IV SCH (15:24)
[2017-11-08] MEDS ORDERED: LEVOFLOXACIN 750 MG/D5W PREMIX 150 ML IV SCH (15:30)
--- NOTE | 2017-11-08 16:02 | NUR ---
PT AIRWAY IS PATENT AN PT IS COMFORTABLE AND DOING WELL.
[2017-11-08] MEDS: BLOOD GLUCOSE MONITORING 1 DEV DEV FS SCH ×2 (16:30→21:09)
--- NOTE | 2017-11-08 16:35 | NUR ---
DR. DUENAS IN TO SEE AND EXAMINE PATIENT, UPDATED ON PATIENT'S CONDITION. WILL FOLLOW UP ON ANY ORDERS.
--- NOTE | 2017-11-08 19:04 | NUR ---
RECEIVED PT ON TRACH SHILEY 6 ON VENT AC/VC 12, VT 500, PEEP 5, FI02 28%. AIRWAY IS PATENT AND SECURED. SXN SMALL AMOUNT OF THIN WHITE SECRETIONS. NO SOB NOTED. VENT IS PLUGGED INTO RED OUTLET AND AMBUBAG IS IN ROOM. ALARMS ARE SET AND AUDIBLE. WILL CONTINUE TO MONITOR.
--- NOTE | 2017-11-08 19:13 | NUR ---
ENDORSED BEDSIDE REPORT TO SEPHORA OPERATIONS CONSULTANT RN FOR CONTINUITY OF CARE, PATIENT PRESENTS NO SIGNS OF ACUTE DISTRESS AT THIS TIME.
--- NOTE | 2017-11-08 19:20 | NUR ---
RECEIVED BEDSIDE REPORT FROM MORNING NURSE, PATIENT CLOSES HER EYES, SPONTANEOUSLY OPEN HER EYES, NON VERBAL, UNABLE TO MAKE NEEDS KNOWN. TRACT TO VENT WITH SETTING AC MODE FIO2 28%, TV 500, RATE 12, PEEP 5. NO ACUTE RESPIRATORY DISTRESS NOTED. BILATERAL LUNG SOUND DIMINISHED. PATIENT HAS G TUBE TO FEEDING GLUCERNA 50ML/HR WITH H2O FLUSH 200ML Q4HR. HILTON CATH IN PLACE DRAINING CLOUDY YELLOW URINE NOTED. PERIPHERAL LINE TO RIGHT HAND 24G INTACT AND PATENT, RUNNING NS 80ML/HR. SKIN IS INTACT, WARM TO TOUCH. HOB ELEVATED 30DEGREE. BED IN LOW POSITION. CALL LIGHT WITHIN REACH. WILL CONTINUE TO MONITOR.
--- NOTE | 2017-11-08 21:10 | NUR ---
CHECKED BS 166 NOTED, ADMINISTERED HUMOLOG 2 UNITS. ADMINISTERED SCHEDULED IV ABX ORDERED. NO ACUTE DISTRESS NOTED.
[2017-11-08] MEDS: PIPER/TAZO 3.375GM/D5W PREMIX 50 ML IV SCH (21:12)
[2017-11-08] MEDS: INSULIN LISPRO SLIDING SCALE 100 UNITS/ML VIAL SUBQ PRN (21:14)
--- NOTE | 2017-11-08 23:00 | NUR ---
PATIENT TOLERATED WELL WITH VENTILATOR, NO ACUTE DISTRESS NOTED. SR ON THE MONITOR. TOLERATED WELL TUBE FEEDING, NO RESIDUAL NOTED. FLACC 0 NOTED. WILL CONTINUE TO MONITOR.
[2017-11-09] VITALS (24 sets, daily range): BP systolic 73–113; BP diastolic 40–68
--- NOTE | 2017-11-09 01:00 | NUR ---
SR ON THE MONITOR. PATIENT TRACH TO VENT WITH FIO2 28%, O2 SAT 96%. NO ACUTE RESPIRATORY DISTRESS NOTED. NO S/S OF PAIN. FLACC 0. WILL CONTINUE TO MONITOR.
[2017-11-09] MEDS: NACL 0.9% 1,000 ML IV SCH ×3 (02:18→20:42)
--- NOTE | 2017-11-09 03:00 | NUR ---
TOLERATED WELL WITH VENT SETTING. NO COUGHING NOTED. SR ON THE MONITOR. FLACC 0.
--- NOTE | 2017-11-09 05:00 | NUR ---
PATIENT IN ASLEEP, AROUSABLE TO VOICE. TOLERATED WELL WITH VENTILATOR. G TUBE TO FEEDING, TOLERATED WELL, NO RESIDUAL NOTED. SR ON THE MONITOR. NO ACUTE DISTRESS NOTED. WILL CONTINUE TO MONITOR.
[2017-11-09] MEDS: PIPER/TAZO 3.375GM/D5W PREMIX 50 ML IV SCH ×3 (05:20→20:30)
--- NOTE | 2017-11-09 07:00 | NUR ---
RECIVED PT ON VENT WITH SETTINGS CHARTED BREATH SOUNDS PRESENT BILAT DIMINISHED SXN PT WITH MIN AMT THICK BROWNISH SECS TRACH SITE SECURE AMBU BAG AT BEDSIDE VENT PLUGGED INTO RED OUTLET WILL CONTINUE TO MONITOR PT ON VENT
[2017-11-09 07:06] LABS: BASOPHILS # (AUTO) 0.2 K/uL (0.00-0.22); BASOPHILS % (AUTO) 1.4 % (0.0-2.0); EOSINOPHILS # (AUTO) 0.9 K/uL (0-0.4); EOSINOPHILS % (AUTO) 7.2 % (0.0-4.0); LYMPHOCYTES # (AUTO) 1.1 K/uL (2.5-16.5); LYMPHOCYTES % (AUTO) 9.1 % (20.5-51.1); MEAN CORPUSCULAR HEMOGLOBIN 30 pg (27-31); MEAN CORPUSCULAR HGB CONC 32 g/dL (33-37); MEAN CORPUSCULAR VOLUME 93.6 fL (80-94); MONOCYTES # (AUTO) 0.6 K/uL (0.8-1.0); MONOCYTES % (AUTO) 5.4 % (1.7-9.3); NEUTROPHILS # (AUTO) 9.1 K/uL (1.8-7.7); NEUTROPHILS % (AUTO) 76.9 % (42.2-75.2); PLATELET COUNT (AUTO) 245 K/uL (140-450); RED BLOOD CELL COUNT(AUTO) 2.24 MIL/uL (4.20-5.40); RED CELL DISTRIBUTION WIDTH 20.2 % (11.6-13.7); WHITE BLOOD COUNT (AUTO) 11.9 K/uL (4.8-10.8)
--- NOTE | 2017-11-09 07:20 | NUR ---
REPORT GIVEN TO MORNING NURSE.
[2017-11-09 07:29] LABS: ALBUMIN 1.3 g/dL (3.4-5.0); ANION GAP 16.7 (8-16); ASPARTATE AMINOTRANSFERASE 10 U/L (15-37); CARBON DIOXIDE 21.9 mmol/L (21-32); CHLORIDE 111 mmol/L (98-107); CREATININE 2.4 mg/dL (0.6-1.3); GLUCOSE 291 mg/dL (74-106); MAGNESIUM 2.6 mg/dL (1.8-2.4); POTASSIUM 4.6 mmol/L (3.5-5.1); SODIUM SERUM 145 mmol/L (136-145); TOTAL BILIRUBIN 0.2 mg/dL (0.0-1.0)
--- NOTE | 2017-11-09 07:30 | NUR ---
RECEIVED REPORT FROM [facility] NURSE. PT SLEEPING. NO SIGNS OF ACUTE DISTRESS. PT TRACH TO VENT. FIO2 28 VT 500 RATE 12 FLOW 40 PEEP 5. SINUS RHYTHM. BUE/BLE PULSES PRESENT. GT PATENT. NO RESIDUALS. LUQ. BOWEL SOUNDS PRESENT X 4 QUADRANTS HYPOACTIVE. FC PATENT. CLEAR YELLOW URINE. IV SITE R HAND. 24 G PATENT.BED IN LOWEST POSITION. CALL LIGHT WITHIN REACH. WILL CONTINUE TO MONITOR.
[2017-11-09 07:39] LABS: UREA NITROGEN, BLOOD 122 mg/dL (7-18)
[2017-11-09 07:53] LABS: HEMOGLOBIN 6.7 g/dL (12.0-16.0)
[2017-11-09] MEDS: BLOOD GLUCOSE MONITORING 1 DEV DEV FS SCH ×4 (08:02→20:30)
--- NOTE | 2017-11-09 08:04 | NUR ---
REPOSITIONED PATIENT TO RIGHT SIDE. PATIENT IS NONVERBAL. UNRESPONSIVE TO NAME AND VERBAL STIMULATION. RESPONDS TO TACTILE STIMULI AND DEEP PAIN. OPENS EYES SPONTANEOUSLY WITHOUT STIMULATION. HAS EPISODES OF STIFFNESS ON UPPER EXTREMITIES. RACHAEL CARE PROVIDED. PATIENT CLEAN AND DRY. CALL LIGHT WITHIN REACH.
[2017-11-09] MEDS: ENOXAPARIN 30 MG/0.3 ML SYR SUBQ SCH (08:16)
[2017-11-09] MEDS: INSULIN LISPRO SLIDING SCALE 100 UNITS/ML VIAL SUBQ PRN ×4 (08:17→20:30)
--- NOTE | 2017-11-09 08:34 | NUR ---
PATIENT HAS BEEN SCREENED AND CATEGORIZED HIGH NUTRITION RISK. PATIENT WILL BE SEEN WITHIN 1-2 DAYS OF ADMISSION. 11/09/17 11/10/[address]
[2017-11-09] MEDS ORDERED: ENOXAPARIN 40 MG/0.4 ML SYR SUBQ SCH (09:00)
--- NOTE | 2017-11-09 09:20 | NUR ---
MD NOTIFIED OF BP 75/45. ORDER FOR 1L NS BOLUS WILL CONTINUE IV RATE 125ML/HR AFTER BOLUS. AND 1 UNIT PRBC ORDERED AFTER TYPE AND CROSS.
[2017-11-09] MEDS ORDERED: NACL 0.9% 1,000 ML IV SCH (09:30)
--- NOTE | 2017-11-09 10:40 | NUR ---
PT SBP INCREASING 89/42. PT NONVERBAL. UNABLE TO VERBALIZE NEEDS. WITHDRAWS TO DEEP STIMULATION. WILL CONTINUE TO MONITOR
--- NOTE | 2017-11-09 11:21 | NUR ---
PT HR 73, BP 91/52, RR 15, O2 SATS 97% AT THIS MOMENT.
--- NOTE | 2017-11-09 12:14 | NUR ---
LAB AT BEDSIDE. NO SIGNS OF ACUTE DISTRESS. WILL FOLLOW UP ANY LAB ABNORMALITIES.
--- NOTE | 2017-11-09 12:29 | NUR ---
CLINICAL REVIEW FAXED TO [facility] FAX [phone]
--- NOTE | 2017-11-09 12:42 | NUR ---
11/09/17 RD INITIAL ASSESSMENT COMPLETED PLEASE REFER TO NUTRITION ASSESSMENT UNDER CARE ACTIVITY FOR ESTIMATED NUTRITIONAL NEEDS. 1. CONTINUE GLUCERNA 1.2 AT 50 ML/HR -THIS WILL PROVIDE 1200 ML, 1440 KCAL, 72 GM PROTEIN, MEETING 100% OF ESTIMATED NEEDS. 2. WATER FLUSH [address] TO FOLLOW-UP 2-3 DAYS, HIGH RISK DEANGELO CARDONA, RD
[2017-11-09] MEDS ORDERED: MIDODRINE 5 MG TAB PO SCH (14:30)
--- NOTE | 2017-11-09 14:50 | NUR ---
PT STARTED BLOOD TRANSFUSION 1 UNIT PRBC. NO SIGNS OF ACUTE DISTRESS. AFEBRILE. WILL CONTINUE TO MONITOR.
[2017-11-09] MEDS: CHLORHEXADINE GLUC 2% CLOTH TP SCH (15:09)
[2017-11-09] MEDS: MUPIROCIN CA NASAL 2% 1GM TUBE NS SCH (15:09)
--- NOTE | 2017-11-09 15:30 | NUR ---
PATIENT RECEIVING BLOOD TRANSFUSION. NO ADVERSE REACTIONS NOTED.
--- NOTE | 2017-11-09 17:25 | NUR ---
CONTINUED TO MONITOR PT ON VENT WITH SETTINGS CHARTED BREATH SOUNDS PRESENT BILAT CLEAR DIM SXN PT WITH MOD AMT THICK BROWNISH SECS TRACH SITE SECURE AMBU BAG AT BEDSIDE VENT PLUGGED INTO RED OUTLET
--- NOTE | 2017-11-09 17:52 | NUR ---
1 UNIT PRBCS TRANSFUSION FINISHED. PATIENT TOLERATED WELL. NO SIGNS OF ACUTE DISTRESS. WILL AWAIT FOR ADDITIONAL UNIT OF PRBCS V/S 74-19-102/50-96%. WILL CONTINUE TO MONITOR
--- NOTE | 2017-11-09 18:35 | NUR ---
STARTED THE PATIENT ON BLOOD TRANSFUSION (2/2) OF PRBC. NO ADVERSE EFFECTS NOTED AT THIS TIME. WILL CONTINUE TO MONITOR.
--- NOTE | 2017-11-09 19:20 | NUR ---
RECEIVED REPORT FROM MORNING RN FOR CONTINUITY OF CARE. VS STABLE AT THIS TIME. AFEBRILE. FLACC 0. PERRL. PT ABLE TO OPEN EYES. RESPONDS TO PAIN. S1+S2 HEARD. SR ON MONITOR. PULSES PALPABLE IN ALL EXTREMITIES. LUNG SOUNDS RHONCHI. TRACH TO VENT WITH SETTINGS AC12, FIO2 28%, TV500 AND PEEP 5. NO SIGNS OF RESPIRATORY DISTRESS NOTED. ABDOMEN ROUND, SOFT AND NONDISTENDED. BOWEL SOUNDS ACTIVE IN ALL QUADRANTS. GTUBE TO FEEDING. GLUCERNA RUNNING AT 50ML/HR. HILTON CATHETER IN PLACE. CLOUDY AND YELLOW URINE DRAINING. PT HAS PERIPHERAL IV ACCESS ON RIGHT HAND 24G CURRENTLY HEP LOCK BUT IS PATENT, INTACT, AND ASYMPTOMATIC. RECEIVED PT WITH 2ND BAG OF PRBC RUNNING ON LEFT HAND 20G PERIPHERAL IV ACCESS. PER MORNING RN, MAINTENANCE FLUID OF NS AT 125ML/HR HELD AT THIS TIME BUT TO RESUME AFTER BLOOD TRANSFUSION. HOB KEPT AT 30 DEGREES. BED AT LOW POSSIBLE POSITION. ALL SAFETY PRECAUTIONS ARE IN PLACE. WILL CONTINUE TO MONITOR PT.
--- NOTE | 2017-11-09 19:57 | NUR ---
VERIFY WITH SHANA CAMERON (SISTER), THAT THEY CONTACTED [facility] TO MARINE STEAM FITTER HELPER THE BODY IN ICU. Addendum: 11/09/17 at 2000 by Kala Still RN WRONG ENTRY, NURSING NOTES CHARTED ON WRONG PATIENT.
[2017-11-09] MEDS: MIDODRINE 5 MG TAB GT SCH (20:30)
--- NOTE | 2017-11-09 21:40 | NUR ---
PT TURNED AND REPOSITIONED. BED BATH GIVEN AT THIS TIME AND LINENS CHANGED. HILTON CATHETER CARE PROVIDED. CURRENTLY NO BM. WILL CONTINUE TO MONITOR PT.
--- NOTE | 2017-11-09 22:04 | NUR ---
BLOOD FINISHED TRANSFUSING AT 2200. WILL CALL LAB AROUND 2230 TO REMIND REGARDING 2300 BLOOD DRAW FOR CBC.
--- NOTE | 2017-11-09 22:45 | NUR ---
CALLED LAB AND SPOKED TO BOB REGARDING 2300 DRAW ORDERED. ACCORDING TO HER, SHE WILL REMIND ALUMINA REFINERY OPERATOR.
--- NOTE | 2017-11-09 23:08 | NUR ---
PROGRAMMER ANALYST AT BEDSIDE TO DRAW BLOOD. PT VS STABLE AT THIS TIME. WILL WAIT FOR CBC RESULT.
[2017-11-09 23:17] LABS: HEMATOCRIT 29.5 % (36-48); HEMOGLOBIN 9.6 g/dL (12.0-16.0); MEAN CORPUSCULAR HEMOGLOBIN 29 pg (27-31); MEAN CORPUSCULAR HGB CONC 33 g/dL (33-37); PLATELET COUNT (AUTO) 227 K/uL (140-450); RED BLOOD CELL COUNT(AUTO) 3.28 MIL/uL (4.20-5.40); RED CELL DISTRIBUTION WIDTH 17.5 % (11.6-13.7); WHITE BLOOD COUNT (AUTO) 11.3 K/uL (4.8-10.8)
[2017-11-09 23:39] LABS: EOSINOPHILS % (MANUAL) 12 % (0-4); LYMPHOCYTES % (MANUAL) 15 % (20-46); MONOCYTES % (MANUAL) 5 % (5-12)
[2017-11-10] VITALS (23 sets, daily range): BP systolic 97–151; BP diastolic 43–80
--- NOTE | 2017-11-10 00:06 | NUR ---
PT ASLEEP AT THIS TIME. SINUS BRADYCARDIA TO SINUS RHYTHM ON MONITOR. FLACC 0. DOES NOT APPEAR TO BE IN ANY DISTRESS. GTUBE TO FEEDING. NS RUNNING AT 125ML/HR AT THIS TIME. HOB AT 30 DEGREES. ALL SAFETY PRECAUTIONS ARE IN PLACE. WILL CONTINUE TO MONITOR PT.
[2017-11-10] MEDS: NACL 0.9% 1,000 ML IV SCH ×3 (01:30→20:12)
--- NOTE | 2017-11-10 01:34 | NUR ---
PT TURNED AND REPOSITIONED AT THIS TIME. TOLERATING TUBE FEEDING WELL AT THIS TIME. HOB AT 30 DEGREES. ALL SAFETY PRECAUTIONS ARE IN PLACE. PERIPHERAL IV ACCESS ARE PATENT AND INTACT. WILL CONTINUE TO MONITOR PT.
[2017-11-10] MEDS: MIDODRINE 5 MG TAB GT SCH ×3 (04:32→20:12)
[2017-11-10] MEDS: PIPER/TAZO 3.375GM/D5W PREMIX 50 ML IV SCH ×3 (04:33→20:13)
--- NOTE | 2017-11-10 06:39 | NUR ---
RECEIVED PT ON [place] ON DOCUMENTED SETTINGS ALARMS ARE ON D AUDIBLE PTS TRACH BONLEY 6 IS SECURE BS CLEAR PT IN HF QUIET BMV HOB VENT PLUGGED INTO RED OUTLET
--- NOTE | 2017-11-10 07:05 | NUR ---
RECEIVED REPORT AT BEDSIDE FROM FILM REPRODUCER RN FOR CONTINUITY OF CARE. PATIENT IS NONVERBAL, RESPONDS TO LIGHT PAIN, UNABLE TO MAKE NEEDS KNOWN. SKIN IS INTACT, WARM AND DRY. SHE HAS PERIPHERAL IV SITE TO RIGHT HAND, 24 GAUGE, SALINE LOCK, AND SITE TO LEFT HAND, 20 GAUGE WITH NS RUNNING AT 125ML/HR. PATIENT HAS TRACH TO VENT, SETTINGS ARE AC 12, FIO2 28, TV 500, PEEP 5. VITAL SIGNS STABLE, SR ON MONITOR, FLACC 0. PATIENT HAS GTUBE IN PLACE TO TUBE FEEDING, GLUCERNA 1.2 AT 50ML/HR WITH H20 FLUSH 200ML Q4H. SHE HAS HILTON CATHETER IN PLACE TO CLOUDY YELLOW URINE. HOB IS 30 DEGREES IN A LOW POSITION. CALL LIGHT WITHIN REACH, NO SIGNS OF DISTRESS NOTED, WILL CONTINUE TO MONITOR.
[2017-11-10] MEDS: BLOOD GLUCOSE MONITORING 1 DEV DEV FS SCH ×4 (07:36→20:13)
[2017-11-10] MEDS: INSULIN LISPRO SLIDING SCALE 100 UNITS/ML VIAL SUBQ PRN ×3 (08:09→20:15)
--- NOTE | 2017-11-10 08:35 | NUR ---
ORAL CARE PROVIDED, PATIENT TOLERATED WELL, NO SIGNS OF DISTRESS NOTED.
--- NOTE | 2017-11-10 09:00 | NUR ---
PT. ABLE TO EAT HER BREAKFAST. EGG, CEREAL AND ORANGE JUICE. Addendum: 11/10/17 at 2825 by Darrick Hair RN THIS NOTE IS NOT FOR THIS PATIENT,
[2017-11-10] MEDS: ENOXAPARIN 30 MG/0.3 ML SYR SUBQ SCH (09:10)
--- NOTE | 2017-11-10 09:26 | NUR ---
BP 95/71 CHARO SYKES AND ANNA COCHRAN NOTIFIED. Addendum: 11/10/17 at 0933 by Darrick Hair RN THIS NOTE IS NOT FOR THIS PATIENT.
[2017-11-10] MEDS ORDERED: LEVOFLOXACIN 500 MG/D5W PREMIX 100 ML IV SCH (13:00)
[2017-11-10] MEDS: MUPIROCIN CA NASAL 2% 1GM TUBE NS SCH (14:45)
[2017-11-10] MEDS: CHLORHEXADINE GLUC 2% CLOTH TP SCH (14:45)
--- NOTE | 2017-11-10 15:30 | NUR ---
DR. HOGUE IN TO SEE AND EXAMINE PATIENT, UPDATED ON PATIENT'S CONDITION. WILL FOLLOW UP ON ANY ORDERS.
[2017-11-10 16:38] LABS: ANION GAP 15.6 (8-16); CARBON DIOXIDE 20.5 mmol/L (21-32); CHLORIDE 114 mmol/L (98-107); CREATININE 2.2 mg/dL (0.6-1.3); GLUCOSE 290 mg/dL (74-106); POTASSIUM 4.1 mmol/L (3.5-5.1); SODIUM SERUM 146 mmol/L (136-145)
[2017-11-10 16:53] LABS: UREA NITROGEN, BLOOD 89 mg/dL (7-18)
--- NOTE | 2017-11-10 18:59 | NUR ---
RECEIVED PT STABLE ON VENT SUPPORT AT DOCUMENTED SETTINGS, SUCTIONED SMALL AMOUNT OF THICK WHITE YELLOW SECRETIOINS, NO RESP DISTRESS OR SOB NOTED AT THIS TIME, SHILEY 6 TRACH SECURED/PATENT/MIDLINE, ALARMS SET AND AUDIBLE, AMBU BAG AT BEDSIDE, VENT PLUGGED INTO RED OUTLET, PULSE OX ON, WILL CONT TO MONITOR.
--- NOTE | 2017-11-10 19:09 | NUR ---
ENDORSED REPORT FOR CONTINUITY OF CARE AT BEDSIDE TO OPERATIONAL REVIEW SERGEANT RN. PATIENT PRESENTS NO SIGNS OF DISTRESS.
--- NOTE | 2017-11-10 20:00 | NUR ---
PATIENT AWAKE, NON VERBAL, DOES NOT FOLLOW SIMPLE COMMANDS, TRACH TO VENT, SUCTIONED WITH SMALL THICK YELLOW AND CLEAR SECRETIONS, VAP ORAL CARE PROVIDED. GT FEEDING DRESSING CHANGED, GT SITE CLEAN. GT FEEDING GLUCERNA AT 50 ML/HR, NO RESIDUAL OBTAINED, HOB ELEVATED AT 30 DEGREES. IV SITE ON LEFT HAND G#20 PATENT AND INTACT, IVF NS AT 125 ML/HR INFUSING. HILTON CATH DRAINING CLEAR YELLOW URINE. BED BATH AND COMPLETE LINEN CHANGED DONE, OPTIFOAM DRESSING PLACED ON SACRAL COCCYX AREA FOR SKIN BREAKDOWN PREVENTION. TURNED TO RIGHT SIDE, KEPT COMFORTABLE, FLACC 0, NO RESPIRATORY DISTRESS.
[2017-11-10] MEDS: PANTOPRAZOLE 40 MG INJ VIAL IVP SCH (20:14)
--- NOTE | 2017-11-10 22:11 | NUR ---
RESTING COMFORTABLY, TURNED AND REPOSITIONED, HOB ELEVATED AT 30 DEGREES, NO RESPIRATORY DISTRESS, FLACC 0.
[2017-11-11] VITALS (24 sets, daily range): BP systolic 109–150; BP diastolic 54–84
--- NOTE | 2017-11-11 00:14 | NUR ---
TURNED AND REPOSITIONED. NO GT RESIDUAL OBTAINED. HOB UP AT 30 DEGREES. NO RESPIRATORY DISTRESS, FLACC 0.
--- NOTE | 2017-11-11 02:12 | NUR ---
PATIENT RESTING COMFORTABLY.
--- NOTE | 2017-11-11 04:08 | NUR ---
PERINEAL CARE PROVIDED, TURNED AND REPOSITIONED. MAINTAINED HOB AT 30 DEGREES, NO GT RESIDUAL OBTAINED. SUCTIONED WITH SMALL AMOUNT OF YELLOW SECRETIONS, VAP ORAL KIT PROVIDED. NO RESPIRATORY DISTRESS, FLACC 0.
[2017-11-11] MEDS: NACL 0.9% 1,000 ML IV SCH ×3 (04:16→21:35)
[2017-11-11] MEDS: PIPER/TAZO 3.375GM/D5W PREMIX 50 ML IV SCH (04:17)
[2017-11-11] MEDS: MIDODRINE 5 MG TAB GT SCH ×3 (04:17→21:36)
[2017-11-11] MEDS: INSULIN LISPRO SLIDING SCALE 100 UNITS/ML VIAL SUBQ PRN ×4 (06:09→21:39)
[2017-11-11] MEDS: BLOOD GLUCOSE MONITORING 1 DEV DEV FS SCH ×4 (06:09→21:36)
--- NOTE | 2017-11-11 06:11 | NUR ---
AM CARE PROVIDED, PATIENT TOLERATED GT FEEDING WELL, SUCTIONED WITH SMALL AMOUNT OF YELLOW SECRETIONS, NO RESPIRATORY DISTRESS, FLACC 0, TURNED TO RIGHT SIDE, KEPT COMFORTABLE.
--- NOTE | 2017-11-11 06:22 | NUR ---
rec'd pt on carescape vent settings ac 12 vt 500 peep 5 fio2 28% alarms on and functioning properly,ambu bag at side of vent and vent is plugged into red outlet, sxn pt small amt of thick white secretions, b\s are clear bilaterally, pt is trach with shiley 6 and skin integrity is intact pt is sleeping with no signs of distress noted at this time.
--- NOTE | 2017-11-11 07:15 | NUR ---
RECEIVED REPORT FROM INSEAM LEVELER RN AT BEDSIDE, PT IS OPEN EYES ONLY, APHASIC, UNABLE TO FOLLOW COMMANDS AND MAKE NEEDS KNOWN. NO S/S OF DISTRESS, TRACH TO VENT WITH SETTING FIO2 28, TV 500, R 12, PEEP 5, CLEAR LUNG SOUNDS ANSELMO., SR ON BATTERY SERVICE TECHNICIAN, SOFT ABDOMEN WITH ACTIVE BOWEL SOUNDS, GT IN PLACE, FEEDING WITH GLUCERNA AT 50ML/HR, INCONTINENT WITH B&B'S, F/C IN PLACE DRAINING CLEAR YELLOW URINE VIA GRAVITY, BEDBOUND, RIGID TO ALL EXTREMITIES. SKIN IS INTACT, WARM AND DRY TO TOUCH, IV SITE TO LEFT HAND, 20GA, RUNNING NS AT 120ML/HR, VSS, FLACC 0, HOB ELEVATED TO 30 DEGREES, SAFETY MEASURES IN PLACE, WILL CONTINUE TO MONITOR.
[2017-11-11] MEDS: PANTOPRAZOLE 40 MG INJ VIAL IVP SCH ×2 (08:41→21:37)
[2017-11-11 08:55] LABS: HEMATOCRIT 31.5 % (36-48); HEMOGLOBIN 10.4 g/dL (12.0-16.0); MEAN CORPUSCULAR HEMOGLOBIN 30 pg (27-31); MEAN CORPUSCULAR HGB CONC 33 g/dL (33-37); MEAN CORPUSCULAR VOLUME 90.7 fL (80-94); PLATELET COUNT (AUTO) 267 K/uL (140-450); RED BLOOD CELL COUNT(AUTO) 3.48 MIL/uL (4.20-5.40); RED CELL DISTRIBUTION WIDTH 18.3 % (11.6-13.7); WHITE BLOOD COUNT (AUTO) 10.8 K/uL (4.8-10.8)
--- NOTE | 2017-11-11 09:00 | NUR ---
SCHEDULED MEDICATION GIVEN, PT TOLERATED WELL.
--- NOTE | 2017-11-11 09:10 | NUR ---
VENT CHECK, NO SXN NEEDED AIRWAY IS PATENT AND PT IS RESTING
[2017-11-11 09:42] LABS: ANION GAP 19.8 (8-16); CARBON DIOXIDE 18.1 mmol/L (21-32); CHLORIDE 111 mmol/L (98-107); CREATININE 2.2 mg/dL (0.6-1.3); GLUCOSE 373 mg/dL (74-106); POTASSIUM 3.9 mmol/L (3.5-5.1); SODIUM SERUM 145 mmol/L (136-145)
[2017-11-11 09:44] LABS: UREA NITROGEN, BLOOD 76 mg/dL (7-18)
--- NOTE | 2017-11-11 10:00 | NUR ---
NO CHANGE OF CONDITION AT THIS TIME, VSS, FLACC 0
[2017-11-11 10:19] LABS: BASOPHILS % (MANUAL) 0 % (0-2); EOSINOPHILS % (MANUAL) 5 % (0-4); LYMPHOCYTES % (MANUAL) 15 % (20-46); MONOCYTES % (MANUAL) 7 % (5-12)
--- NOTE | 2017-11-11 11:29 | NUR ---
vent check, sxn pt small amt of white secretions, airway is patent and pt is resting
--- NOTE | 2017-11-11 12:00 | NUR ---
NO S/S OF DISTRESS, VSS, FLACC 0, ORAL CARE AND SUCTION PROVIDED, POSITION CHANGED FOR OFF LOAD PRESSURE.
[2017-11-11] MEDS: PIPER/TAZO 2.25GM/D5W PREMIX 50 ML IV SCH ×2 (12:20→17:08)
--- NOTE | 2017-11-11 14:00 | NUR ---
PT IS RESTING IN BED, NO CHANGE OF CONDITION AT THIS TIME, VSS, FLACC 0, POSITION CHANGED FOR OFF LOAD PRESSURE.
--- NOTE | 2017-11-11 14:09 | NUR ---
vent check, no sxn required airway is patent and pt is resting
[2017-11-11] MEDS: CHLORHEXADINE GLUC 2% CLOTH TP SCH (14:22)
[2017-11-11] MEDS: MUPIROCIN CA NASAL 2% 1GM TUBE NS SCH (14:22)
--- NOTE | 2017-11-11 15:00 | NUR ---
DR. RAMÍREZ CAME IN TO SEE PT AT BEDSIDE, WILL FOLLOW UP WITH NEW ORDERS.
[2017-11-11] MEDS ORDERED: PIPE50SO5 IV (15:01)
[2017-11-11] MEDS ORDERED: LEVO750T2 PEG (15:02)
[2017-11-11] MEDS ORDERED: GLIP10TE PO (15:05)
[2017-11-11] MEDS ORDERED: INSU100S22 SUBQ (15:05)
--- NOTE | 2017-11-11 16:00 | NUR ---
DR. ESTRADA CAME IN TO SEE PT AT BEDSIDE, WILL FOLLOW UP WITH NEW ORDERS.
--- NOTE | 2017-11-11 16:30 | NUR ---
CALLED [facility] FOR A BED TO TRANSFER PT BACK, NO ISOLATION BED AT THIS TIME, WILL ENDORSE TO NEXT SHIFT AND FOLLOW UP TOMORROW.
--- NOTE | 2017-11-11 17:30 | NUR ---
VENT CHECK, NO SXN NEEDED TRACH CARE DONE: CHANGED TRACH GAUZE PT IS RESTING
--- NOTE | 2017-11-11 18:00 | NUR ---
NO CHANGE OF CONDITION AT THIS TIME, VSS, FLACC 0, POSITION CHANGED FOR OFF LOAD PRESSURE.
--- NOTE | 2017-11-11 19:08 | NUR ---
RECEIVED PT STABLE ON VENT SUPPORT AT DOCUMENTED SETTINGS, SUCTIONED SMALL AMOUNTS OF THICK WHITE YELLOW SECRETIONS, NO RESP DISTRESS OR SOB NOTED AT THIS TIME, SHILEY 6 TRACH SECURED/PATENT/MIDLINE, ALARMS SET AND AUDIBLE, AMBU BAG AT BEDSIDE, VENT PLUGGED INTO RED OUTLET, PULSE OX ON, WILL CONT TO MONITOR.
--- NOTE | 2017-11-11 19:15 | NUR ---
REPORT GIVEN TO IMAGING AIDE NURSE FOR CONTINUE OF CARE, PT IS IN STABLE CONDITION AT THIS TIME.
--- NOTE | 2017-11-11 19:20 | NUR ---
RECEIVED BEDSIDE REPORT FROM MORNING SHIFT NURSE, PT OPENS EYES SPONTANEOUSLY BUT NO TRACK, NON VERBAL, UNABLE TO FOLLOW COMMANDS AND MAKE NEEDS KNOWN. NO ACUTE DISTRESS NOTED, TRACH TO VENT WITH SETTING FIO2 28, TV 500, R 12, PEEP 5, BILATERAL LUNG SOUND DIMINISHED. SR ON TOOL AND DIE ASSEMBLER. FLACC 0 NOTED. ACTIVE BOWEL SOUNDS HEARD AT ALL 4 QUADS, GT IN PLACE, PLACEMENT CHECKED, FEEDING WITH GLUCERNA 1.2 AT 50ML/HR WITH 200 WATER FLUSH Q4HR. HILTON CATH IN PLACE DRAINING CLEAR YELLOW URINE. SKIN IS INTACT, WARM AND DRY TO TOUCH, IV SITE TO LEFT HAND, 20GA, RUNNING NS AT 125ML/HR. HOB ELEVATED TO 30 DEGREES. BED IN LOW POSITION. WILL CONTINUE TO MONITOR.
[2017-11-11] MEDS: INSULIN LANTUS 100 UNITS/ML 10 ML VIAL SUBQ SCH (21:38)
--- NOTE | 2017-11-11 21:40 | NUR ---
ADMINISTERED SCHEDULED MEDICATIONS ORDERED, TOLERATED WELL. NO RESIDUAL NOTED. TOLERATED WELL WITH VENTILATOR. NO ACUTE DISTRESS NOTED. SR ON THE MONITOR. FLACC 0. WILL CONTINUE TO MONITOR. Addendum: 11/12/17 at 0242 by Jordin Lynch RN BS CHECKED 250 NOTED. ADMINISTERED LANTUS 10UNITS AND HUMOLOG 4UNITS.
[2017-11-12] VITALS (24 sets, daily range): BP systolic 85–142; BP diastolic 50–89
--- NOTE | 2017-11-12 | NUR ---
ADMINISTERED SCHEDULED IV ABX ORDERED, TOLERATED WELL. PROVIDED ORAL CARE. FLACC 0. NO TUBE FEEDING RESIDUAL NOTED. WILL CONTINUE TO MONITOR. SINUS OUMAR ON THE MONITOR. WILL CONTINUE TO MONITOR.
[2017-11-12] MEDS: PIPER/TAZO 2.25GM/D5W PREMIX 50 ML IV SCH ×4 (00:01→17:08)
--- NOTE | 2017-11-12 02:00 | NUR ---
PATIENT TOLERATED WELL WITH VENTILATOR. NO ACUTE DISTRESS NOTED. FLACC 0. WILL CONTINUE TO MONITOR.
--- NOTE | 2017-11-12 04:00 | NUR ---
PROVIDED ORAL CARE, CLEAR SECRETIONS NOTED. NO ACUTE DISTRESS NOTED. SR TO SB ON THE MONITOR. WILL CONTINUE TO MONITOR.
[2017-11-12] MEDS: NACL 0.9% 1,000 ML IV SCH (05:26)
[2017-11-12] MEDS: MIDODRINE 5 MG TAB GT SCH ×3 (05:27→20:26)
--- NOTE | 2017-11-12 05:45 | NUR ---
ADMINISTERED SCHEDULED MEDICATIONS ORDERED, TOLERATED WELL. NO ACUTE DISTRESS NOTED. WILL CONTINUE TO MONITOR.
--- NOTE | 2017-11-12 06:27 | NUR ---
RECEIVED PT ON DOCUMENTED SETTINGS ALARMS ARE ON AND FUNCTIONAL PTS TRACH RANDELL 6 IS SECURE BS CLEAR PT IN HF QUIET BMV HOB VENT PLUGGED INTO RED OUTLET
--- NOTE | 2017-11-12 07:27 | NUR ---
BEDSIDE REPORT GIVEN TO MORNING NURSE.
--- NOTE | 2017-11-12 07:40 | NUR ---
REPORT RECEIVED FROM [facility] NURSE. PATIENT NONVERBAL. AFEBRILE. UNABLE TO COMMUNICATE NEEDS. RESPONDS TO SOME VERBAL AND TACTILE STIMULI. OPENS EYES SPONTANEOUSLY. PT ON TRACH TO VENT. SETTINGS FI02 28 VT 500 RATE 12 PEEP 5. LUNG SOUNDS DIMINISHED. SINUS RHYTHM. ON MONITOR. BUE/BLE PULSES PRESENT. ABD SOFT NONTENDER. GT TO FEED. NO RESIDUALS NOTED. NAUSEA NOTED. FEED STOPPED. ZOFRAN 4MG PRN GIVEN. BILATERAL SCDS. IV SITE PATENT 20G L HAND. FC PATENT. ORAL CARE PROVIDED. HOB 30. SIDE RAILS UP X 4. BED IN LOWEST POSITION. CALL LIGHT WITHIN REACH. WILL CONTINUE TO MONITOR.
[2017-11-12] MEDS: BLOOD GLUCOSE MONITORING 1 DEV DEV FS SCH ×4 (07:51→20:26)
[2017-11-12] MEDS: PANTOPRAZOLE 40 MG INJ VIAL IVP SCH ×2 (08:40→20:26)
[2017-11-12] MEDS: INSULIN LISPRO SLIDING SCALE 100 UNITS/ML VIAL SUBQ PRN ×4 (08:45→20:43)
[2017-11-12] MEDS: INSULIN LANTUS 100 UNITS/ML 10 ML VIAL SUBQ SCH ×2 (08:46→20:42)
--- NOTE | 2017-11-12 09:22 | NUR ---
PT APPEARS RED AND FLUSHED. TEMP 101.6 NOTED. COOLING MEASURES PROVIDED. PAGED DR. HOGUE. WILL WAIT FOR CALL BACK.
[2017-11-12] MEDS ORDERED: ACETAMINOPHEN 325 MG TAB PO PRN (09:55)
--- NOTE | 2017-11-12 09:56 | NUR ---
PAGED DR. DUENAS RECEIEVED NEW ORDERS. WILL CARRY OUT ORDERS.
--- NOTE | 2017-11-12 09:58 | NUR ---
DR. HOGUE RETURNED CALL. WILL HOLD DISCHARGE PER DR. MCKEON ORDERS
[2017-11-12] MEDS ORDERED: ACETAMINOPHEN 325 MG TAB PEG PRN (10:50)
--- NOTE | 2017-11-12 11:00 | NUR ---
LAB AT BEDSIDE. NO SIGNS OF ACUTE DISTRESS AT THIS TIME.
--- NOTE | 2017-11-12 11:46 | NUR ---
RAPID BLINKING AND SLIGHT FACIAL SWITCHES NOTED WITH LEFT SHOULDER MOVEMENT. ATIVAN GIVEN. WILL CONTINUE TO MONITOR.
[2017-11-12 11:55] LABS: BASOPHILS # (AUTO) 0.2 K/uL (0.00-0.22); BASOPHILS % (AUTO) 1.8 % (0.0-2.0); EOSINOPHILS # (AUTO) 0.8 K/uL (0-0.4); EOSINOPHILS % (AUTO) 6.8 % (0.0-4.0); HEMATOCRIT 28.8 % (36-48); HEMOGLOBIN 9.3 g/dL (12.0-16.0); LYMPHOCYTES # (AUTO) 2.5 K/uL (2.5-16.5); LYMPHOCYTES % (AUTO) 21.7 % (20.5-51.1); MEAN CORPUSCULAR HEMOGLOBIN 29 pg (27-31); MEAN CORPUSCULAR HGB CONC 32 g/dL (33-37); MEAN CORPUSCULAR VOLUME 90.1 fL (80-94); MONOCYTES # (AUTO) 0.8 K/uL (0.8-1.0); NEUTROPHILS # (AUTO) 7.1 K/uL (1.8-7.7); NEUTROPHILS % (AUTO) 62.7 % (42.2-75.2); PLATELET COUNT (AUTO) 266 K/uL (140-450); RED CELL DISTRIBUTION WIDTH 18.6 % (11.6-13.7); WHITE BLOOD COUNT (AUTO) 11.3 K/uL (4.8-10.8)
[2017-11-12] MEDS ORDERED: LEVOFLOXACIN 500 MG/D5W PREMIX 100 ML IV SCH (12:00)
[2017-11-12 12:39] LABS: ANION GAP 14.9 (8-16); CARBON DIOXIDE 20.8 mmol/L (21-32); CHLORIDE 112 mmol/L (98-107); GLUCOSE 294 mg/dL (74-106); POTASSIUM 3.7 mmol/L (3.5-5.1); SODIUM SERUM 144 mmol/L (136-145); UREA NITROGEN, BLOOD 56 mg/dL (7-18)
--- NOTE | 2017-11-12 12:41 | NUR ---
FAMILY AT BEDSIDE. NO SIGNS OF ACUTE DISTRESS AT THIS TIME.
--- NOTE | 2017-11-12 13:47 | NUR ---
Ic Designer Custom Note: I received a call from patient's daughter Laura Singer , she stated she would like patient to return to [facility] upon discharge. Addendum: 11/12/17 at 1349 by Vannessa Sawyer SS Laura Singer Lithuanian speaking.
--- NOTE | 2017-11-12 14:00 | NUR ---
DR. CA CAME IN TO SEE PT AT BEDSIDE, HELD TRANSFER TO TELE DUE TO PT'S BP LOW AT THIS TIME, WILL FOLLOW UP WITH ORDERS AND CONTINUE TO MONITOR.
[2017-11-12] MEDS: levETIRAcetam 1,000 MG in NACL 0.9% 100 ML IV SCH ×2 (14:43→20:24)
[2017-11-12] MEDS: CHLORHEXADINE GLUC 2% CLOTH TP SCH (14:43)
[2017-11-12] MEDS: MUPIROCIN CA NASAL 2% 1GM TUBE NS SCH (14:44)
[2017-11-12] MEDS ORDERED: VALPROIC ACID 250 MG/5 ML UDC GT SCH (14:54)
[2017-11-12] MEDS ORDERED: LEVOTHYROXINE 0.075 MG TAB PO SCH (15:01)
--- NOTE | 2017-11-12 15:36 | NUR ---
Clinical review faxed to [facility] at [phone]
--- NOTE | 2017-11-12 15:46 | NUR ---
11/12/17 RD FOLLOW UP COMPLETED PLEASE REFER TO NUTRITION ASSESSMENT UNDER CARE ACTIVITY FOR ESTIMATED NUTRITIONAL NEEDS. 1.CONTINUE GLUCERNA 1.2 AT 50 ML/HR WITH 200 ML WATER FLUSH Q4H -THIS WILL PROVIDE 1200 ML, 1440 KCAL, 72 GM PROTEIN, MEETING 100% OF ESTIMATED NEEDS. 2. RD TO FOLLOW-UP 2-3 DAYS, HIGH RISK DEANGELO CARDONA, RD
[2017-11-12] MEDS: glipiZIDE 5 MG TAB GT SCH (16:13)
--- NOTE | 2017-11-12 19:22 | NUR ---
CARE ENDORSED TO INCOMING SHIFT. PT AFEBRILE. NO SIGNS OF ACUTE DISTRESS. BED IN LOWEST POSITION. CALL LIGHT WITHIN REACH.
--- NOTE | 2017-11-12 19:23 | NUR ---
RECEIVED REPORT AT PT BEDSIDE FROM DAY SHIFT RN, PT IS NONVERBAL, ON TRACH TO VENT. PT UNABLE TO MAKE NEEDS KNOWN, UNABLE TO FOLLOW COMMANDS. RESPONDS TO PAIN. RESPIRATIONS EVEN AND UNLABORED.PT SKIN IS INTACT. 20G IV TO LEFT HAND, ASYMPTOMATIC, INTACT AND PATENT. GTUBE IN PLACE WITH 30ML RESIDUAL, TUBE FEEDING GLUCERNA 1.2 RUNNING AT 50ML/HR. VITAL SIGNS WITHIN NORMAL LIMITS, EXCEPT FOR OUMAR HEART RATE ON MONITOR. PT STABLE, NO SIGNS OF DISTRESS NOTED AT THIS TIME. BED IN LOWEST POSITION, BED ALARM ON. CALL LIGHT WITHIN REACH, WILL CONTINUE TO MONITOR.
[2017-11-12] MEDS: VALPROIC ACID 250 MG/5 ML UDC GT SCH (20:24)
--- NOTE | 2017-11-12 20:30 | NUR ---
ADMINISTERED SCHEDULED MEDICATIONS, PT TOLERATED WELL. WILL ALSO ADMINISTER HUMALOG INSULIN COVERAGE OF 4 UNITS FOR BLOOD SUGAR 224. NO SIGNS/SYMPTOMS OF DISTRESS NOTED. WILL CONTINUE TO MONITOR.
--- NOTE | 2017-11-12 22:15 | NUR ---
VITAL SIGNS WITHIN NORMAL LIMITS, EXCEPT FOR OUMAR HEART RATE ON MONITOR. PT STABLE, NO SIGNS OF DISTRESS NOTED AT THIS TIME. WILL CONTINUE TO MONITOR.
[2017-11-13] VITALS (29 sets, daily range): BP systolic 93–153; BP diastolic 52–67
--- NOTE | 2017-11-13 | NUR ---
PT OUMAR ON MONITOR AND TEMP IS 99.1, OTHERWISE VITAL SIGNS WITHIN NORMAL LIMITS. PT STABLE, NO SIGNS OF DISTRESS NOTED AT THIS TIME. CALL LIGHT WITHIN REACH, WILL CONTINUE TO MONITOR.
[2017-11-13] MEDS: PIPER/TAZO 2.25GM/D5W PREMIX 50 ML IV SCH ×4 (00:20→17:37)
--- NOTE | 2017-11-13 02:16 | NUR ---
NO CHANGES, PT STILL STABLE, WITHOUT ANY SIGNS OF DISTRESS. WILL CONTINUE TO MONITOR.
--- NOTE | 2017-11-13 04:00 | NUR ---
VITAL SIGNS WITHIN NORMAL LIMITS, EXCEPT FOR OUMAR HEART RATE ON MONITOR. PT STABLE, NO SIGNS OF DISTRESS NOTED AT THIS TIME. WILL CONTINUE TO MONITOR.
[2017-11-13 05:04] LABS: BASOPHILS # (AUTO) 0.2 K/uL (0.00-0.22); BASOPHILS % (AUTO) 1.7 % (0.0-2.0); EOSINOPHILS # (AUTO) 1.5 K/uL (0-0.4); EOSINOPHILS % (AUTO) 11.1 % (0.0-4.0); HEMATOCRIT 30.1 % (36-48); HEMOGLOBIN 9.7 g/dL (12.0-16.0); LYMPHOCYTES # (AUTO) 2.5 K/uL (2.5-16.5); LYMPHOCYTES % (AUTO) 19.3 % (20.5-51.1); MEAN CORPUSCULAR HEMOGLOBIN 29 pg (27-31); MEAN CORPUSCULAR HGB CONC 32 g/dL (33-37); MEAN CORPUSCULAR VOLUME 91.3 fL (80-94); MONOCYTES # (AUTO) 0.9 K/uL (0.8-1.0); MONOCYTES % (AUTO) 6.8 % (1.7-9.3); NEUTROPHILS # (AUTO) 8.1 K/uL (1.8-7.7); NEUTROPHILS % (AUTO) 61.1 % (42.2-75.2); PLATELET COUNT (AUTO) 258 K/uL (140-450); RED BLOOD CELL COUNT(AUTO) 3.29 MIL/uL (4.20-5.40); RED CELL DISTRIBUTION WIDTH 17.6 % (11.6-13.7); WHITE BLOOD COUNT (AUTO) 13.2 K/uL (4.8-10.8)
[2017-11-13] MEDS: VALPROIC ACID 250 MG/5 ML UDC GT SCH ×3 (05:46→20:26)
[2017-11-13] MEDS: MIDODRINE 5 MG TAB GT SCH ×3 (05:46→20:26)
[2017-11-13] MEDS: LEVOTHYROXINE 0.075 MG TAB PO SCH (05:46)
--- NOTE | 2017-11-13 05:47 | NUR ---
ADMINISTERED SCHEDULED MORNING MEDICATIONS, PT TOLERATED WELL. FLUSHED GTUBE AFTER ADMINISTRATION WITH STERILE WATER. WILL CONTINUE TO MONITOR.
--- NOTE | 2017-11-13 06:10 | NUR ---
TOTAL URINE OUTPUT WAS 1700 FOR THE NIGHT. PT STABLE, NO SIGNS OF DISTRESS NOTED. WILL CONTINUE TO MONITOR.
--- NOTE | 2017-11-13 06:31 | NUR ---
REC'D PT ON CARESCAPE VENT SETTINGS AC 14 VT 500 PEEP 5 FIO2 28% ALARMS ON AUDIBLE AMBU BAG IS AT SIDE OF VENT AND VENT IS PLUGGED INTO RED OUTLET, B\S ARE CLEAR BILATERALLY, SXN PT SMALL AMT OF CLEAR SECRETIONS, PT IS TRACH WITH SHILEY 6 AND SKIN INTEGRITY IS INTACT PT IS RESTING WITH NO SIGNS OF DISTRESS NOTED AT THIS TIME
[2017-11-13 06:55] LABS: ANION GAP 17.1 (8-16); CARBON DIOXIDE 20.1 mmol/L (21-32); CHLORIDE 110 mmol/L (98-107); CREATININE 1.9 mg/dL (0.6-1.3); GLUCOSE 242 mg/dL (74-106); POTASSIUM 4.2 mmol/L (3.5-5.1); SODIUM SERUM 143 mmol/L (136-145); UREA NITROGEN, BLOOD 51 mg/dL (7-18)
--- NOTE | 2017-11-13 07:39 | NUR ---
ENDORSED PT TO DAY SHIFT RN FOR CONTINUITY OF CARE. PT STABLE.
--- NOTE | 2017-11-13 08:00 | NUR ---
INITIAL SHIFT ASSESSMENT DONE. OPENING EYES BUT NOT FOLLOWING COMMANDS. NO SIGNS OF PAIN OR AGITATION NOTED. ON VENTILATOR VIA TRACH, TOLERATING CURRENT SETTINGS WELL. O2 SAT 95-96%. SB ON MONITOR. SBP IN 130'S. NO ECTOPY NOTED. HOB ELEVATED. ON TUBE FEEDING VIA G-TUBE, TOLERATING WELL. NO RESIDUALS NOTED. UPDATED OF PLAN OF CARE. WILL CONTINUE TO MONITOR.
[2017-11-13] MEDS: glipiZIDE 5 MG TAB GT SCH ×2 (08:01→17:12)
[2017-11-13] MEDS: BLOOD GLUCOSE MONITORING 1 DEV DEV FS SCH ×4 (08:01→20:28)
[2017-11-13] MEDS: INSULIN LISPRO SLIDING SCALE 100 UNITS/ML VIAL SUBQ PRN ×4 (08:07→20:29)
--- NOTE | 2017-11-13 08:40 | NUR ---
INTUBATED AT THIS TIME BY RESIDENT MD LONGO AFTER PREMEDICATED WITH ETOMIDATE 20 MG IVP AND ROCURONIUM 20 MG IVP. Addendum: 11/13/17 at 1355 by [facility] CAGE RN WRONG PATIENT.
--- NOTE | 2017-11-13 09:11 | NUR ---
VENT CHHAYA, PT RESTING WITH NO SIGNS OF DISTRESS NOTED
[2017-11-13] MEDS: levETIRAcetam 1,000 MG in NACL 0.9% 100 ML IV SCH ×2 (09:24→20:27)
[2017-11-13] MEDS: PANTOPRAZOLE 40 MG INJ VIAL IVP SCH ×2 (09:24→20:27)
[2017-11-13] MEDS: INSULIN LANTUS 100 UNITS/ML 10 ML VIAL SUBQ SCH ×2 (09:24→20:30)
--- NOTE | 2017-11-13 10:00 | NUR ---
RESTING IN BED. NO SIGNS OF PAIN OR AGITATION NOTED. TOLERATING VENTILATOR WELL. O2 SAT 96%. SB/SR ON MONITOR. SBP IN 120'S-150'S. NO ECTOPY NOTED. HOB ELEVATED. WILL CONTINUE TO MONITOR.
--- NOTE | 2017-11-13 11:02 | NUR ---
vent check, pt resting with no signs of distress noted airway is patent
--- NOTE | 2017-11-13 12:00 | NUR ---
REASSESSMENT DONE. NEURO STATUS UNCHANGED. NO SIGNS OF PAIN OR AGITATION NOTED. TOLERATING CURRENT VENTILATOR SETTINGS WELL. O2 SAT 96-97%. SB ON MONITOR. SBP IN 120'S-130'S. NO ECTOPY NOTED. HOB ELEVATED. TOLERATING TUBE FEEDING WELL. NO RESIDUALS NOTED. UPDATED OF PLAN OF CARE. WILL CONTINUE TO MONITOR.
--- NOTE | 2017-11-13 13:00 | NUR ---
SBP IN 120'S-130'S. MIDODRINE NOT GIVEN.
--- NOTE | 2017-11-13 13:06 | NUR ---
VENT CHECK, SXN PT SMALL AMT OF WHITE SECRETIONS, PT IS RESTING WITH NO SIGNS OF DISTRESS NOTED AT THIS TIME
--- NOTE | 2017-11-13 14:00 | NUR ---
RESTING IN BED. NO SIGNS OF PAIN OR AGITATION NOTED. TOLERATING VENTILATOR WELL. O2 SAT 96-97%. SB ON MONITOR. SBP IN 120'S. NO ECTOPY NOTED. HOB ELEVATED. WILL CONTINUE TO MONITOR.
[2017-11-13] MEDS: CHLORHEXADINE GLUC 2% CLOTH TP SCH (14:59)
[2017-11-13] MEDS: MUPIROCIN CA NASAL 2% 1GM TUBE NS SCH (14:59)
--- NOTE | 2017-11-13 15:13 | NUR ---
Clinical review faxed to [facility] at [phone]
--- NOTE | 2017-11-13 15:27 | NUR ---
VENT CHECK, AIRWAY IS PATENT AND PT IS RESTING WITH NO SIGNS OF DISTRESS NOTED
--- NOTE | 2017-11-13 16:00 | NUR ---
REASSESSMENT DONE. NEURO STATUS STILL THE SAME. NO SIGNS OF PAIN OR AGITATION NOTED. TOLERATING CURRENT VENTILATOR SETTINGS WELL. O2 SAT 96-97%. SB ON MONITOR. SBP IN 90'S-110'S. NO ECTOPY NOTED. HOB ELEVATED. TOLERATING TUBE FEEDING WELL. NO RESIDUALS NOTED. UPDATED OF PLAN OF CARE. WILL CONTINUE TO MONITOR.
[2017-11-13 16:01] LABS: BILIRUBIN,URINE NEGATIVE (NEGATIVE); BLOOD, URINE 2+ (NEGATIVE); COLOR,URINE YELLOW (YELLOW); LEUKOCYTE ESTERASE ,URINE 2+ (NEGATIVE); NITRITE, URINE NEGATIVE (NEGATIVE); PH,URINE 6.5 (5.0-9.0); UGLUCOSE 1+ (NEGATIVE)
[2017-11-13 16:04] LABS: APPEARANCE,URINE HAZY (CLEAR)
[2017-11-13 16:05] LABS: RBC,URINE 3-10 (FEW) /HPF (0-5); WBC,URINE 20-60 /HPF (0-5)
--- NOTE | 2017-11-13 16:57 | NUR ---
VENT CHECK, NO SXN NEEDED AIRWAY IS PATENT TRACH CARE DONE: TRACH GAUZE CHANGED PT RESTING
--- NOTE | 2017-11-13 18:00 | NUR ---
RESTING IN BED. NO SIGNS OF PAIN OR AGITATION NOTED. TOLERATING VENTILATOR WELL. O2 SAT 96-98%. SB ON MONITOR. SBP IN 100'S. NO ECTOPY NOTED. HOB ELEVATED. WILL CONTINUE TO MONITOR.
--- NOTE | 2017-11-13 19:20 | NUR ---
REPORT GIVEN TO INCOMING PRODUCTION MACHINIST RN, FAUZIA DOE.
--- NOTE | 2017-11-13 19:25 | NUR ---
RECEIVED REPORT FROM MORNING SHIFT RN. PT IS UNABLE TO RESPOND TO COMMANDS; OPENS EYES SPONTANEOUSLY, RIGHT EYE IS PERRL. LUNG SOUND DIMINISHED ON BILATERAL UPPER AND LOWER LOBES. TRACHEOSTOMY SET TO VENT FIO2=28%. VAP ORAL CARE AND SUCTIONING PROVIDED. GTUBE IN PLACE, 50ML/HR WITH GLUCERNA. BRADYCARDIC ON CAR EXAMINER. BOWEL SOUNDS HYPOACTIVE UPON AUSCULTATION. HILTON CATHETER IN PLACE, URINE IS CLEAR AND YELLOW. SKIN IS INTACT, EDEMATOUS. IV ON LEFT FOREARM. CONTACT ISOLATION PRECAUTIONS MAINTAINED, HOB ELEVATED ABOVE 30DEG, PILLOW SUPPORT PROVIDED AND BED IN LOWEST POSITION.
[2017-11-13] MEDS ORDERED: levETIRAcetam 100 MG/ML VIAL IV ONE (20:11)
[2017-11-13] MEDS ORDERED: GENTAMICIN PER PHARMACY MC PRN (21:05)
--- NOTE | 2017-11-13 21:05 | NUR ---
DR. SHIELDS AT BEDSIDE TO SEE PATIENT, RECEIVED NEW ORDERS.
[2017-11-13] MEDS ORDERED: GENTAMICIN 100 MG in NACL 0.9% 100 ML IV SCH (22:00)
[2017-11-13] MEDS ORDERED: MEROPENEM 500 MG in NACL 0.9% 50 ML IV SCH (22:00)
[2017-11-13] MEDS ORDERED: GENTAMICIN 80 MG/2 ML VIAL ONE (22:02)
[2017-11-13] MEDS ORDERED: MEROPENEM 500 MG VIAL IV ONE (22:09)
[2017-11-14] VITALS (21 sets, daily range): BP systolic 96–138; BP diastolic 49–83
--- NOTE | 2017-11-14 | NUR ---
PT REPOSITIONED, VAP ORAL CARE PROVIDED.
--- NOTE | 2017-11-14 02:00 | NUR ---
PT IS AFEBRILE, B/P =115/52 O2 SAT= 98%. HR=53 BPM PT IS BRADYCARDIC ON DIGITAL ASSET COORDINATOR. TRACH TO VENT: FIO2 =28%, XH=481, RR=12. GT TO FEEDING AT 50ML/HR. MINIMAL, CLEAR SECRETIONS NOTED ON SUCTIONING. PT SLEEPING QUIETLY WITH SPONTANEOUS EYE OPENING.CONTACT PRECAUTIONS MAINTAINED. WILL CONTINUE TO MONITOR.
--- NOTE | 2017-11-14 04:15 | NUR ---
RIGHT HAND 22GAUGE PERIPHERAL IV INSERTED.
--- NOTE | 2017-11-14 04:35 | NUR ---
PT REPOSITIONED, SUCTION PROVIDED, VAP ORAL CARE PROVIDED, AND EMPTIED HILTON CATHETER. SCD IN PLACE.
[2017-11-14] MEDS: VALPROIC ACID 250 MG/5 ML UDC GT SCH ×2 (04:41→12:31)
[2017-11-14] MEDS: MIDODRINE 5 MG TAB GT SCH ×2 (04:42→12:32)
[2017-11-14] MEDS ORDERED: MEROPENEM 500 MG VIAL IV ONE (05:13)
[2017-11-14] MEDS: MEROPENEM 500 MG in NACL 0.9% 50 ML IV SCH ×2 (05:24→12:33)
[2017-11-14] MEDS: LEVOTHYROXINE 0.075 MG TAB PO SCH (06:33)
[2017-11-14] MEDS: glipiZIDE 5 MG TAB GT SCH ×2 (06:33→16:50)
[2017-11-14] MEDS: BLOOD GLUCOSE MONITORING 1 DEV DEV FS SCH ×3 (06:34→16:52)
[2017-11-14] MEDS: INSULIN LISPRO SLIDING SCALE 100 UNITS/ML VIAL SUBQ PRN ×3 (06:38→16:52)
--- NOTE | 2017-11-14 07:30 | NUR ---
REPORT GIVEN TO MORNING RN FOR CONTINUITY OF CARE. PT IN STABLE CONDITION AT THIS TIME.
--- NOTE | 2017-11-14 07:30 | NUR ---
RECEIVED REPORT FROM PM NURSE, PT ABLE TO OPEN EYES BUT UNRESPONSIVE TO NAME STIMULI , WITHDRAW TO PAIN STIMULI. BEDSIDE MONITOR SHOWS SB 50S. PT HAS TRACH TO VENT WITH SETTING FIO2=28%, TV 500. NO S/S OF RESPIRATORY DISTRESS NOTED. PT ABDOMEN SOFT, NON TENDER. PT HAS G-TUBE FEEDING WITH GLUCERNA AT 50 MLS/HR, RESIDUAL CHECKED NONE. IV SITE INTACT AND PATENT. HOB ELEVATED 30 DEGREES WITH LOW BED POSITION. WILL CONTINUE TO MONITOR.
[2017-11-14] MEDS: PANTOPRAZOLE 40 MG INJ VIAL IVP SCH (08:30)
[2017-11-14] MEDS: INSULIN LANTUS 100 UNITS/ML 10 ML VIAL SUBQ SCH (08:31)
[2017-11-14] MEDS: levETIRAcetam 1,000 MG in NACL 0.9% 100 ML IV SCH (08:35)
--- NOTE | 2017-11-14 08:41 | NUR ---
RECEIVED ON A [employer] R860 VENTILATOR PLUGGED INTO RED OUTLET TOLERATING WELL WITHOUT ADVERSE REACTIONS NOTED TO A RANDELL DCT #6 AIRWAY SECURED WITH A ERIKA TRACH TIE CUFF PRESSURE CHECKED NOTED AMBU BAG AT BEDSIDE LOC QUIET BREATH SOUNDS CLEAR BILATERAL WITH GOOD AERATION THROUGHOUT AIRWAY PATENT
--- NOTE | 2017-11-14 09:00 | NUR ---
DUE MEDS GIVEN, PT TOLERATED WELL.
--- NOTE | 2017-11-14 10:08 | NUR ---
NO EVIDENCE OF PULMONARY DISTRESS NOTED GOOD CHEST RISE
--- NOTE | 2017-11-14 12:05 | NUR ---
RESTING WELL NO EVIDENCE OF SOB NOTED BREATH SOUNDS EXPIRATORY RHONCHI BILATERAL GOOD CHEST RISE DEEP TRACHEAL SUCTTION FOR LARGE THICK YELLOW SECRETIONS AIRWAY PATENT
[2017-11-14] MEDS ORDERED: MERO500P2 IV (12:10)
--- NOTE | 2017-11-14 14:03 | NUR ---
NO DISTRESS NOTED AT THIS TIME GOOD CHEST RISE
--- NOTE | 2017-11-14 14:09 | NUR ---
PT STAYING IN BED, UNABLE TO FOLLOW COMMANDS. BEDSIDE MONITOR SHOWS SB 53, NO S/S OF RESPIRATORY DISTRESS NOTED.
--- NOTE | 2017-11-14 15:06 | NUR ---
FAXED CONCURRENT REVIEW TO [facility] [phone] PHONE IBIS [phone]
--- NOTE | 2017-11-14 16:30 | NUR ---
NO RESPIRATORY DISTRESS NOTED GOOD CHEST RISE
--- NOTE | 2017-11-14 17:07 | NUR ---
Laundry Supervisor Note: Per Neri from [facility] , they have an isolation bed available for patient today, room 26B, accepting physician is . Neri stated bed will be available at 8pm, charge nurse Siena made aware.
--- NOTE | 2017-11-14 17:23 | NUR ---
CALLED PT'S GRANDDAUGHTER SHAYNA DUVAL, NOTIFIED HER [place] WILL BE TRAN[place] [facility] [place] [facility] [place] 8 PM, PT GRANDDAUGHTER STATED SHE WILL NOTIFY HER MOM.CALLED PT'S DAUGHTER, SHE SPEAK FRENCH ONLY.
--- NOTE | 2017-11-14 17:39 | NUR ---
REPORT GIVEN TO [facility] FAUZIA PALAFOX , ACCEPTING MD IS DR. HDZ. PT WILL BE TRANSFERRED TO [facility] AT 8 PM TODAY.
--- NOTE | 2017-11-14 18:25 | NUR ---
TURNED AND REPOSITIONED PT, CLEANED PT, GOWN CHANGED, G-TUBE FLUSHED AND IV SITE SALINE LOCKED. BEDSIDE MONITOR SHOWS SR. NO S/S OF RESPIRATORY DISTRESS NOTED.
--- NOTE | 2017-11-14 20:20 | NUR ---
PATIENT [place]SF[place] [facility] [place] [facility] [facility] WITH 3 ASSISTANTS. VS STABLE AT THIS TIME. NO ACUTE DISTRESS NOTED. FLACC 0 NOTED.
[2017-11-15] MEDS ORDERED: GENTAMICIN 100 MG in DEXTROSE 5% 100 ML IV SCH (10:00)
== END 2017-11-14 20:20 | DRG 720 ==
LOC: MED 11:15 → MIC 13:55
PROVIDERS: ADMIT Hospitalist; ATTEND Hospitalist
PROC: 5A1955Z Respiratory Ventilation, Greater than 96 Consecutive Hours (ICD-10-PCS; principal; 2017-11-08)
PROC: 30233N1 Transfusion of Nonautologous Red Blood Cells into Peripheral Vein, Percutaneous Approach (ICD-10-PCS; 2017-11-09)
DX: A41.9 Sepsis, unspecified organism (principal); R65.21 Severe sepsis with septic shock; G93.41 Metabolic encephalopathy; N17.9 Acute kidney failure, unspecified; J18.1 Lobar pneumonia, unspecified organism; Z99.11 Dependence on respirator [ventilator] status; J96.10 Chronic respiratory failure, unspecified whether with hypoxia or hypercapnia; E87.2 Acidosis; N39.0 Urinary tract infection, site not specified; E03.9 Hypothyroidism, unspecified; B96.20 Unspecified Escherichia coli [E. coli] as the cause of diseases classified elsewhere; B96.4 Proteus (mirabilis) (morganii) as the cause of diseases classified elsewhere; D64.9 Anemia, unspecified; E11.21 Type 2 diabetes mellitus with diabetic nephropathy; E11.22 Type 2 diabetes mellitus with diabetic chronic kidney disease; E11.65 Type 2 diabetes mellitus with hyperglycemia; E86.1 Hypovolemia; F01.50 Vascular dementia, unspecified severity, without behavioral disturbance, psychotic disturbance, mood disturbance, and anxiety; G40.909 Epilepsy, unspecified, not intractable, without status epilepticus; B96.5 Pseudomonas (aeruginosa) (mallei) (pseudomallei) as the cause of diseases classified elsewhere; Z66 Do not resuscitate; I95.9 Hypotension, unspecified; J40 Bronchitis, not specified as acute or chronic; J98.11 Atelectasis; N18.9 Chronic kidney disease, unspecified; R13.10 Dysphagia, unspecified; Y95 Nosocomial condition; Z16.12 Extended spectrum beta lactamase (ESBL) resistance; Z93.1 Gastrostomy status; Z93.0 Tracheostomy status; Z86.73 Personal history of transient ischemic attack (TIA), and cerebral infarction without residual deficits; Z22.322 Carrier or suspected carrier of Methicillin resistant Staphylococcus aureus; Z79.899 Other long term (current) drug therapy
CPT/HCPCS: 36415; 71045; 80048; 80053; 81001; 82009; 82550; 82553; 82948; 83036; 83540; 83605; 83735; 83874; 83880; 84484; 85025; 85610; 85730; 86886; 86900; 86901; 86920; 87040; 87070; 87081; 87086; 87186; 87205; 93005; 94003; 96361; 96365; 99291; C9113; J1580; J1650; J1815; J1953; J1956; J2060; J2185; J2405; J2543; J7030; J7042; J7060; P9016

== ENCOUNTER 2018-02-21 15:59 | Inpatient (IN) | payer OTHER, MEDICARE ==
[~2018-02-21] VITALS: Ht 157.5 cm; Wt 64.9 kg
[2018-02-21 15:59] VITALS: BP_SYST 131
[~2018-02-21 15:59] MED LIST changes: +GLIP10TE PO; -GLIP5TAB4 GT; +INSU100S22 SUBQ; +MERO500P2 IV; -PIPE50SO5 IV
--- NOTE | 2018-02-21 15:59 | NUR ---
PT BIBA ALS TO BED 10
[2018-02-21 16:05] VITALS: BP 131/58
--- NOTE | 2018-02-21 16:05 | NUR ---
PLACED ON A [employer] R860 VENTILATOR #1355 WITH SETTINGS NOTED PLUGGED INTO RED OUTLET TOLERATING WELL TO A Purple DCT# 6 AIRWAY CUFF PRESSURE WITH 6CC AIR
--- NOTE | 2018-02-21 16:07 | NUR ---
SPUTUM SAMPLE COLLECTED NOTED
--- NOTE | 2018-02-21 16:28 | NUR ---
PATIENT BIBA FROM [facility] WITH C/O ABNORMAL LABS (HBG=6.8). APHASIC, UNABLE TO FOLLOW COMMANDS, TRACH TO VENT, COARSE LUNG SOUNDS, COUGHING PRESENT WITH YELLOW MUCOUS, GT IN PLACE, F/C IN PLACE. SKIN IS INTACT, DRY AND WARM. BEDBOUND, SEVERE WEAKNESS TO ALL EXTREMITES. FLACC 4; VSS; PATIENT POSITIONED FOR COMFORT; HOB ELEVATED; BEDRAILS UP X2; BED DOWN. ER MD MADE AWARE OF PT STATUS.
--- NOTE | 2018-02-21 16:30 | NUR ---
HILTON CATHETER CHANGED PER POTOCOL, PT TOLERATED WELL, UA COLLETED ORDERED.
[2018-02-21 17:00] LABS: BASOPHILS % (AUTO) 0.3 % (0.0-2.0); EOSINOPHILS # (AUTO) 2.4 K/uL (0-0.4); EOSINOPHILS % (AUTO) 13.1 % (0.0-4.0); HEMATOCRIT 22.6 % (36-48); HEMOGLOBIN 7.2 g/dL (12.0-16.0); LYMPHOCYTES # (AUTO) 2.3 K/uL (2.5-16.5); LYMPHOCYTES % (AUTO) 12.4 % (20.5-51.1); MEAN CORPUSCULAR HEMOGLOBIN 31 pg (27-31); MEAN CORPUSCULAR HGB CONC 32 g/dL (33-37); MEAN CORPUSCULAR VOLUME 97.2 fL (80-94); MONOCYTES # (AUTO) 0.7 K/uL (0.8-1.0); MONOCYTES % (AUTO) 3.6 % (1.7-9.3); NEUTROPHILS # (AUTO) 12.9 K/uL (1.8-7.7); NEUTROPHILS % (AUTO) 70.6 % (42.2-75.2); PLATELET COUNT (AUTO) 377 K/uL (140-450); RED BLOOD CELL COUNT(AUTO) 2.33 MIL/uL (4.20-5.40); WHITE BLOOD COUNT (AUTO) 18.3 K/uL (4.8-10.8)
[2018-02-21 17:08] VITALS: BP 125/67
--- NOTE | 2018-02-21 17:08 | NUR ---
INCREASED FIO2 TO 40%
[2018-02-21 17:32] LABS: APPEARANCE,URINE SL CLOUDY (CLEAR); BILIRUBIN,URINE NEGATIVE (NEGATIVE); BLOOD, URINE 1+ (NEGATIVE); COLOR,URINE YELLOW (YELLOW); LEUKOCYTE ESTERASE ,URINE 3+ (NEGATIVE); NITRITE, URINE NEGATIVE (NEGATIVE); UGLUCOSE NEGATIVE (NEGATIVE)
[2018-02-21] MEDS ORDERED: PIPERACILLIN/TAZOBACTAM 3.375 GM in DEXTROSE 5% 50 ML IV ONE (17:40)
[2018-02-21] MEDS ORDERED: PIPERACILLIN/TAZOBACTAM 3.375 GM VIAL IV ONE (17:53)
--- NOTE | 2018-02-21 18:06 | NUR ---
PT. RESTING COMFORTABLY IN BED, RR EVEN AND UNLABORED. VSS. WILL CONTINUE TO MONITOR. BED IN LOWEST POSITION. HOB ELEVATED.
[2018-02-21 18:22] LABS: ANION GAP 9.7 (8-16); CARBON DIOXIDE 23.9 mmol/L (21-32); CHLORIDE 106 mmol/L (98-107); GLUCOSE 92 mg/dL (74-106); POTASSIUM 3.6 mmol/L (3.5-5.1); SODIUM SERUM 136 mmol/L (136-145)
[2018-02-21 18:23] LABS: ASPARTATE AMINOTRANSFERASE 15 U/L (15-37); CREATININE 1.3 mg/dL (0.6-1.3); TOTAL BILIRUBIN 0.2 mg/dL (0.0-1.0)
[2018-02-21 18:25] LABS: RBC,URINE 0-5 (RARE) /HPF (0-5)
[2018-02-21 18:26] LABS: WBC,URINE 80-100 /HPF (0-5)
--- NOTE | 2018-02-21 18:34 | NUR ---
MONICA CALLED FROM LAB TO REPORT BUN: 64 ; ER MD MONROE NOTIFIED.
[2018-02-21 18:35] LABS: UREA NITROGEN, BLOOD 64 mg/dL (7-18)
[2018-02-21] MEDS ORDERED: NACL 0.9% 1,000 ML IV ONE (18:35)
[2018-02-21] MEDS ORDERED: ONDANSETRON 4 MG/2 ML VIAL IVP PRN (18:50)
[2018-02-21] MEDS ORDERED: MORPHINE SULFATE 2 MG/ML SYR IVP PRN (18:50)
[2018-02-21] MEDS ORDERED: DEXTROSE 50% 50 ML SYR IVP PRN (18:50)
[2018-02-21] MEDS ORDERED: INSULIN LISPRO SLIDING SCALE 100 UNITS/ML VIAL SUBQ PRN (18:50)
[2018-02-21] MEDS ORDERED: ALBUTEROL 0.083% 2.5 MG/3 ML NEBU INH PRN (18:50)
[2018-02-21 19:00] VITALS: BP 126/56
[2018-02-21] MEDS ORDERED: ALBUTEROL 0.083% 2.5 MG/3 ML NEBU INH SCH (19:00)
[2018-02-21] MEDS ORDERED: DOCUSATE 100 MG/10 ML UDC GT PRN (19:05)
--- NOTE | 2018-02-21 19:30 | NUR ---
NO S/S OF DISTRESS, VSS, FLACC 0, WAITING FOR ICU BED READY TO TRANSFER.
--- NOTE | 2018-02-21 20:10 | NUR ---
Patient will be admitted to care of DR. LEON. Admited to ICU. Will go to room ICU 1. Belongings list completed. Report to FAUZIA BALLESTEROS AT BEDSIDE.
--- NOTE | 2018-02-21 20:10 | NUR ---
RECEIVED PT IN THE UNIT AT 2004. PT TRANSPORTED VIA GURNEY. PT AFEBRILE. PUPILS ARE SLUGGISH BILATERALLY. UNABLE TO FOLLOW COMMANDS. RESPONDS TO LIGHT PAIN. S1+S2 HEARD. SINUS TACHYCARDIA ON MONITOR WHEN CONNECTED. PULSES ARE PALPABLE IN ALL EXTREMITIES. BP WNL. RESPIRATIONS EVEN AND UNLABORED. TRACH TO VENT WITH SETTINGS: AC12, FIO2 40%, TV 500, PEEP 5. ABDOMEN ROUND, SOFT AND NONDISTENDED. BS ACTIVE IN ALL QUADRANTS. PT HAS GTUBE IN PLACE. SPECIMEN COLLECTED DUE TO HX OF GTUBE INFECTION. HILTON CATHETER IN PLACE. INSERTED IN ER. URINE IS CLOUDY AND YELLOW IN COLOR. SKIN IS WARM TO TOUCH AND DRY. SKIN IS INTACT. HOB KEPT AT 30 DEGREES. BED AT LOW POSSIBLE POSITION. ALL SAFETY PRECAUTIONS ARE IN PLACE.
[2018-02-21] MEDS: NACL 0.9% 1,000 ML IV SCH (20:35)
--- NOTE | 2018-02-21 20:44 | NUR ---
CALLED NEXT OF KIN PER INFORMATION ON PT'S FACE SHEET. SPOKE WITH SHAYNA DUVAL, INFORMED HER THAT BLOOD TRANSFUSION WAS ORDERED FOR PT. CONSENT TO TRANSFUSE RECEIVED, VERIFIED WITH ANOTHER RN.
--- NOTE | 2018-02-21 20:45 | NUR ---
CALLED LAB AND VERIFIED IF BLOOD ORDERED FOR PT WAS READY. ACCORDING TO MUD MIXER OPERATOR, BLOOD WITH BE AVAILABLE IN 30 MINUTES.
[2018-02-21] MEDS ORDERED: INSULIN LANTUS 100 UNITS/ML 10 ML VIAL SUBQ SCH (21:00)
[2018-02-21] MEDS: VALPROIC ACID 250 MG/5 ML UDC GT SCH (21:13)
[2018-02-21] MEDS: levETIRAcetam 100 MG/ML ORASYR GT SCH (21:13)
--- NOTE | 2018-02-21 21:13 | NUR ---
BLOOD GLUCOSE CHECKED DUE TO INSULIN ADMINISTRATION SCHEDULED. BG CURRENTLY 94, PT NOT ON ANY TUBE FEEDING. INSULIN HELD.
[2018-02-21] MEDS ORDERED: levETIRAcetam 100 MG/ML ORASYR ONE (21:15)
--- NOTE | 2018-02-21 21:30 | NUR ---
BLOOD TRANSFUSION STARTED.
[2018-02-21 22:00] VITALS: BP 85/48
[2018-02-21] MEDS ORDERED: PIPERACILLIN/TAZOBACTAM 2.25 GM VIAL IV ONE (22:34)
[2018-02-21 23:17] VITALS: BP 110/54
[2018-02-21] MEDS: BLOOD GLUCOSE MONITORING 1 DEV DEV FS SCH (23:23)
[2018-02-21] MEDS: PIPERACILLIN/TAZOBACTAM 2.25 GM in DEXTROSE 5% 50 ML IV SCH (23:24)
--- NOTE | 2018-02-21 23:30 | NUR ---
FIRST UNIT OF PRBC FINISHED INFUSING. SECOND UNIT TO FOLLOW.
--- NOTE | 2018-02-21 23:36 | NUR ---
PT TURNED AND REPOSITIONED. SCHEDULED MEDICATIONS ADMINISTERED. RESPIRATIONS EVEN AND UNLABORED. SINUS RHYTHM ON MONITOR.
--- NOTE | 2018-02-21 23:50 | NUR ---
SECOND UNIT OF BLOOD STARTED RUNNING.
[2018-02-22] VITALS (17 sets, daily range): BP systolic 83–134; BP diastolic 27–88
--- NOTE | 2018-02-22 02:50 | NUR ---
TRANSFUSION OF 2 UNITS PRBCS COMPLETED. NO ADVERSE REACTION NOTED ON PT. AFEBRILE. RESPIRATIONS EVEN AND UNLABORED. TRACH TO VENT. NO CHANGE IN SETTINGS. SINUS RHYTHM TO SINUS BRADYCARDIA ON MONITOR.
--- NOTE | 2018-02-22 03:23 | NUR ---
BP READING WAS LOW AT THIS TIME. CHANGED BP CUFF. REPOSITIONED PT. SBP NOW AT 100S.
[2018-02-22] MEDS: VALPROIC ACID 250 MG/5 ML UDC GT SCH (04:21)
[2018-02-22] MEDS: NACL 0.9% 1,000 ML IV SCH (04:21)
--- NOTE | 2018-02-22 04:48 | NUR ---
PROPOSAL COORDINATOR AT BEDSIDE TO DRAW SPECIMEN FOR MORNING LABS.
[2018-02-22] MEDS ORDERED: PIPERACILLIN/TAZOBACTAM 2.25 GM VIAL IV ONE (05:33)
--- NOTE | 2018-02-22 05:40 | NUR ---
CHECK PT BLOOD SUGAR AND BS WAS 52. RECHECKED IT AND BG 57. D50 GIVEN PER ORDER. WILL RECHECK.
[2018-02-22] MEDS: BLOOD GLUCOSE MONITORING 1 DEV DEV FS SCH ×2 (05:43→11:54)
[2018-02-22] MEDS: PIPERACILLIN/TAZOBACTAM 2.25 GM in DEXTROSE 5% 50 ML IV SCH (05:44)
--- NOTE | 2018-02-22 06:09 | NUR ---
RECHECKED BLOOD SUGAR POST D50 ADMINISTRATION. BG NOW 186
[2018-02-22] MEDS ORDERED: LEVOTHYROXINE 0.075 MG TAB GT SCH ×2 (06:30→09:00)
[2018-02-22 06:53] LABS: BASOPHILS % (AUTO) 0.2 % (0.0-2.0); EOSINOPHILS # (AUTO) 1.6 K/uL (0-0.4); HEMATOCRIT 27.1 % (36-48); HEMOGLOBIN 8.9 g/dL (12.0-16.0); LYMPHOCYTES # (AUTO) 1.5 K/uL (2.5-16.5); LYMPHOCYTES % (AUTO) 11.4 % (20.5-51.1); MEAN CORPUSCULAR HEMOGLOBIN 31 pg (27-31); MEAN CORPUSCULAR HGB CONC 33 g/dL (33-37); MEAN CORPUSCULAR VOLUME 95.9 fL (80-94); MONOCYTES # (AUTO) 0.5 K/uL (0.8-1.0); NEUTROPHILS # (AUTO) 9.5 K/uL (1.8-7.7); NEUTROPHILS % (AUTO) 72.4 % (42.2-75.2); PLATELET COUNT (AUTO) 279 K/uL (140-450); RED BLOOD CELL COUNT(AUTO) 2.82 MIL/uL (4.20-5.40); RED CELL DISTRIBUTION WIDTH 17.6 % (11.6-13.7); WHITE BLOOD COUNT (AUTO) 13.2 K/uL (4.8-10.8)
--- NOTE | 2018-02-22 07:12 | NUR ---
RECEIVED BEDSIDE REPORT FROM BROOK BRASS FINISHER RN, FOR CONTINUITY OF CARE. PATIENT IS NONVERBAL, RESPONDS TO LIGHT STIMULI. PATIENT IS TRACH TO VENT, SETTINGS ARE AC RATE 12, TV 500, FIO2 35, PEEP 5. BREATHING UNLABORED AND EVEN. SINUS OUMAR ON COLOR ROOM ATTENDANT, FLACC 0. PATIENT SKIN IS INTACT, PERIPHERAL IV SITE TO RIGHT HAND AND RIGHT FA, ASYMPTOMATIC, PATENT. PATIENT HAS NS RUNNING AT 100ML/HR. PATIENT HAS GTUBE IN PLACE, NO RESIDUAL NOTED. HILTON CATHETER IN PLACE TO CLEAR YELLOW URINE. HOB IS 30 DEGREES, ALL SAFETY PRECAUTIONS ASSESS AND IN PLACE, SEIZURE PRECAUTIONS ENFORCED. NO SIGNS OF DISTRESS NOTED. WILL CONTINUE TO MONITOR.
--- NOTE | 2018-02-22 07:15 | NUR ---
recived pt on vent with settings as charted breath sounds present bilat clear sxn pt with min amount white secs trach site secure ambu bag at bedside vent plugged into red outlet will continue to monitor pt on vent
[2018-02-22 07:30] LABS: ALBUMIN 1.7 g/dL (3.4-5.0); ANION GAP 9.6 (8-16); ASPARTATE AMINOTRANSFERASE 15 U/L (15-37); CARBON DIOXIDE 23.7 mmol/L (21-32); CHLORIDE 110 mmol/L (98-107); CREATININE 1.3 mg/dL (0.6-1.3); GLUCOSE 60 mg/dL (74-106); MAGNESIUM 2.3 mg/dL (1.8-2.4); PHOSPHORUS 2.5 mg/dL (2.5-4.9); POTASSIUM 3.3 mmol/L (3.5-5.1); SODIUM SERUM 140 mmol/L (136-145); TOTAL BILIRUBIN 0.2 mg/dL (0.0-1.0); UREA NITROGEN, BLOOD 54 mg/dL (7-18)
--- NOTE | 2018-02-22 08:14 | NUR ---
PAGED DR. SIMONS REGARDING PATIENT'S LAB FOR POTASSIUM AND BLOOD GLUCOSE WELL PATIENT'S NPO STATUS, ORDERS RECEIVED. WILL CARRY OUT
--- NOTE | 2018-02-22 08:24 | NUR ---
PATIENT HAS BEEN SCREENED AND CATEGORIZED HIGH NUTRITION RISK. PATIENT WILL BE SEEN WITHIN 1-2 DAYS OF ADMISSION. 02/22/18 02/23/[address]
--- NOTE | 2018-02-22 08:55 | NUR ---
DR. SIMONS IN TO SEE AND EXAMINE PATIENT, WILL FOLLOW UP ON ANY ORDERS.
--- NOTE | 2018-02-22 08:56 | NUR ---
PROVIDED ORAL CARE, PATIENT TOLERATED WELL. WILL CONTINUE TO MONITOR
--- NOTE | 2018-02-22 08:59 | NUR ---
IN TO SEE AND EXAMINE PATIENT, WILL FOLLOW UP ON ANY ORDERS
[2018-02-22] MEDS ORDERED: NON-FORMULARY ITEM (Cranberry Fruit Concentrate (Cranberry) 450 MG) GT SCH (09:00)
[2018-02-22] MEDS ORDERED: PANTOPRAZOLE 40 MG INJ VIAL IVP SCH (09:00)
[2018-02-22] MEDS ORDERED: MINERAL OIL OP SCH (09:00)
[2018-02-22] MEDS ORDERED: LACTOBACILLUS ACIDOPHILUS GT SCH (09:00)
[2018-02-22] MEDS ORDERED: PETROLATUM OP SCH (09:00)
[2018-02-22] MEDS ORDERED: NON-FORMULARY ITEM (Lactobacillus Rhamnosus Gg (Culturelle Health & Wellness) 1 EACH) PO SCH (09:00)
[2018-02-22] MEDS ORDERED: [UNRECOGNIZED DRUG - OTHER] OP SCH (09:00)
[2018-02-22] MEDS ORDERED: DOCUSATE SODIUM 100 MG GELCAP PO SCH ×2 (09:00→10:00)
[2018-02-22] MEDS ORDERED: CAPTOPRIL 12.5 MG TAB GT SCH (09:00)
[2018-02-22] MEDS ORDERED: NON-FORMULARY ITEM (Multivitamin with Minerals (Multivitamins with Minerals) 1 TAB) GT SCH (09:00)
[2018-02-22] MEDS: levETIRAcetam 100 MG/ML ORASYR GT SCH (09:00)
[2018-02-22] MEDS ORDERED: PIPE50SO5 IV (09:02)
--- NOTE | 2018-02-22 09:26 | NUR ---
Case Finisher Note: Per Rodney from [facility] , patient is on a 7 day bed hold and is one of their jail patients. She stated patient does not have an existing Advance Directive. She reported patient's daughter Laura is patient's healthcare decision maker. I called Laura, no answer, left message. Otr Van Cdl Truck Driver and/or Treating Machine Operator will follow up as needed.
[2018-02-22] MEDS ORDERED: POTASSIUM CHLORIDE 40 MEQ, LIDOCAINE MPF 1% - 5 mL VIAL 25 MG in NACL 0.9% 250 ML IV SCH (09:30)
[2018-02-22] MEDS ORDERED: POTASSIUM CHLORIDE 20% 40 MEQ/15 ML UDC GT SCH (09:30)
[2018-02-22] MEDS ORDERED: MULTIVITAMIN/MINERALS 1 TAB GT SCH (10:00)
[2018-02-22] MEDS ORDERED: CAPTOPRIL 25 MG TAB GT SCH (10:00)
[2018-02-22] MEDS ORDERED: SIMETHICONE 80 MG TAB.CHEW GT SCH ×2 (10:00→21:00)
[2018-02-22] MEDS ORDERED: MULTIVITAMIN 1 TAB PO SCH (10:00)
[2018-02-22] MEDS ORDERED: POLYETHYLENE GLYCOL 17 GM/PKT GT SCH (10:00)
[2018-02-22] MEDS ORDERED: MULTIVITAMIN/MINERALS 1 TAB PO SCH (10:00)
[2018-02-22] MEDS ORDERED: POTASSIUM CHLORIDE 10 MEQ TABER PO SCH (10:00)
[2018-02-22] MEDS ORDERED: CHOLECALCIFEROL 1,000 IU TAB GT SCH (10:00)
[2018-02-22] MEDS ORDERED: glipiZIDE ER 5 MG TABER PO SCH (10:00)
[2018-02-22] MEDS ORDERED: levETIRAcetam 100 MG/ML ORASYR GT SCH ×2 (10:00→21:00)
--- NOTE | 2018-02-22 10:00 | NUR ---
ADMINISTERED SCHEDULED MEDS ORDERED, PATIENT TOLERATES WELL.
--- NOTE | 2018-02-22 10:10 | NUR ---
STARTED PATIENT ON TUBE FEEDING, PATIENT IS TOLERATING WELL. NO SIGNS OF DISTRESS NOTED
--- NOTE | 2018-02-22 10:30 | NUR ---
CM NOTE PER [facility] CM IBIS, IF PATIENT IS GOING BACK TO SNF, FOR [facility] AUTH# [id number]. NURSE HEATHER AWARE. INITIAL REVIEW FAXED TO [facility] [phone] IBIS PH# [phone].
[2018-02-22] MEDS ORDERED: glipiZIDE 10 MG TAB GT SCH (11:00)
[2018-02-22] MEDS ORDERED: PIPER/TAZO 2.25GM/D5W PREMIX 50 ML IV SCH (12:00)
--- NOTE | 2018-02-22 12:28 | NUR ---
ORAL CARE PROVIDED, PATIENT TOLERATED WELL. WILL CONTINUE TO MONITOR
[2018-02-22] MEDS ORDERED: VALPROIC ACID 250 MG/5 ML UDC GT SCH (13:00)
--- NOTE | 2018-02-22 13:35 | NUR ---
PAGED REGARDING IRON AND TIBC LABS, RECEIVED ORDER TO DISCHARGE PATIENT TO SNF. WILL FOLLOW UP WITH ORDERS.
--- NOTE | 2018-02-22 14:15 | NUR ---
Inspector Rubber Stamp Die Note: I faxed patient's medical information to [facility].
--- NOTE | 2018-02-22 14:25 | NUR ---
PATIENT'S FAMILY AT BEDSIDE, UPDATED ON PATIENT'S CONDITION. NO SIGNS OF DISTRESS NOTED. WILL CONTINUE TO MONITOR
--- NOTE | 2018-02-22 14:39 | NUR ---
02/22/18 RD INITIAL ASSESSMENT COMPLETED PLEASE REFER TO NUTRITION ASSESSMENT UNDER CARE ACTIVITY FOR ESTIMATED NUTRITIONAL NEEDS. RECOMMEND NEPRO WITH CARB STEADY @ 35 ML/HR WITH FLUSH 100 ML Q4H. -THIS WILL PROVIDE 1500 KCAL AND 67 G PROTEIN AND [address] TO FOLLOW-UP 2-3 DAYS, HIGH RISK DEANGELO CARDONA, RD
--- NOTE | 2018-02-22 15:23 | NUR ---
Compo Conveyor Operator Note: Per Phyllis from [facility] , patient may return to room 8B at their facility anytime today, accepting physician is Juan Clarke, RN Siena made aware.
--- NOTE | 2018-02-22 15:43 | NUR ---
SPOKE WITH [facility], STATED THAT THEY WILL BE COMING TO PHILANTHROPY OFFICER PATIENT AROUND 1630
--- NOTE | 2018-02-22 15:52 | NUR ---
GAVE REPORT TO RECEIVING RN, FROM [facility] [place], AWARE THAT PATIENT WILL BE PICKED UP AT 1630.
--- NOTE | 2018-02-22 16:47 | NUR ---
[facility] IS HERE FOR PICKUP, PATIENT PRESENTS NO SIGNS OF DISTRESS, VITAL SIGNS STABLE AT THIS TIME.
[2018-02-22] MEDS ORDERED: ARTIFICIAL TEARS OPHTH OINT 3.5 GM TUBE OP SCH (21:00)
[2018-02-22] MEDS ORDERED: BISACODYL 10 MG SUPP RC SCH (21:00)
[2018-02-23] MEDS ORDERED: glipiZIDE 10 MG TAB GT SCH (06:30)
[2018-02-23] MEDS ORDERED: POTASSIUM CHLORIDE 10 MEQ TABER PO SCH (09:00)
[2018-02-23] MEDS ORDERED: MULTIVITAMIN/MINERALS 1 TAB PO SCH (09:00)
[2018-02-23] MEDS ORDERED: glipiZIDE ER 5 MG TABER PO SCH (09:00)
[2018-02-23] MEDS ORDERED: LACTOBACILLUS RHAMNOSUS GG 1 EACH CAP GT SCH (09:00)
[2018-02-23] MEDS ORDERED: CHOLECALCIFEROL 1,000 IU TAB GT SCH (09:00)
[2018-02-23] MEDS ORDERED: CAPTOPRIL 25 MG TAB GT SCH (09:00)
[2018-02-25] MEDS ORDERED: POLYETHYLENE GLYCOL 17 GM/PKT GT SCH (09:00)
== END 2018-02-22 17:00 | DRG 463 ==
LOC: MED 15:59 → MIC 19:02
PROVIDERS: ADMIT Hospitalist; ATTEND Hospitalist
PROC: 5A1935Z Respiratory Ventilation, Less than 24 Consecutive Hours (ICD-10-PCS; principal; 2018-02-21)
PROC: 30233N1 Transfusion of Nonautologous Red Blood Cells into Peripheral Vein, Percutaneous Approach (ICD-10-PCS; 2018-02-21)
DX: N39.0 Urinary tract infection, site not specified (principal); Z99.11 Dependence on respirator [ventilator] status; G93.41 Metabolic encephalopathy; J96.10 Chronic respiratory failure, unspecified whether with hypoxia or hypercapnia; Z93.0 Tracheostomy status; D63.8 Anemia in other chronic diseases classified elsewhere; E86.0 Dehydration; R13.10 Dysphagia, unspecified; F03.90 Unspecified dementia, unspecified severity, without behavioral disturbance, psychotic disturbance, mood disturbance, and anxiety; Z66 Do not resuscitate; E03.9 Hypothyroidism, unspecified; J98.11 Atelectasis; E78.5 Hyperlipidemia, unspecified; N18.9 Chronic kidney disease, unspecified; I12.9 Hypertensive chronic kidney disease with stage 1 through stage 4 chronic kidney disease, or unspecified chronic kidney disease; G40.909 Epilepsy, unspecified, not intractable, without status epilepticus; E11.22 Type 2 diabetes mellitus with diabetic chronic kidney disease; Z86.73 Personal history of transient ischemic attack (TIA), and cerebral infarction without residual deficits; Z79.4 Long term (current) use of insulin; Z79.899 Other long term (current) drug therapy; Z93.1 Gastrostomy status
CPT/HCPCS: 36415; 36600; 71045; 80053; 81001; 82803; 82948; 83540; 83605; 83735; 83880; 84100; 84484; 85025; 85610; 85730; 86886; 86900; 86901; 86920; 87040; 87070; 87081; 87086; 87186; 87205; 89220; 94002; 94003; 96361; 96365; 99291; C1758; C9113; J1815; J2001; J2543; J3480; J7030; J7060; P9016; Q0092; Q0163